=== PATIENT | female | born 1950 | race Caucasian/White ===

== ENCOUNTER → 2022-09-17 | Outpatient (CLI) | payer MEDICARE, SELFPAY ==
--- NOTE | 2022-09-17 14:44 | RAD_ITS ---
STUDY: X-RAY - RIGHT SHOULDER REASON FOR EXAM: Female, 72 years old. Inflammatory polyarthropathy. TECHNIQUE: 4 view(s) of the shoulder. COMPARISON: None. FINDINGS: Osteopenia. Mild arthrosis of the glenohumeral joint. Mild arthrosis of the AC joint. Normal acromion. Normal humeral head and visualized proximal humerus. Normal soft tissues. Normal visualized pulmonary apex. RAD/Shoulder min 2 Views IMPRESSION: Osteopenia with mild arthrosis of the glenohumeral and acromioclavicular joints. No other abnormality. Electronically Signed: Clarke Caputo, at 14:19 EDT ,
--- NOTE | 2022-09-17 14:44 | RAD_ITS ---
STUDY: X-RAY - LEFT SHOULDER REASON FOR EXAM: Female, 72 years old. Inflammatory polyarthropathy. TECHNIQUE: 4 view(s) of the shoulder. COMPARISON: None. FINDINGS: Osteopenia. Moderate arthrosis of the glenohumeral joint. Moderate arthrosis of the AC joint. Normal acromion. Normal humeral head and visualized proximal humerus. Normal soft tissues. Normal visualized pulmonary apex. RAD/Shoulder min 2 Views IMPRESSION: Osteopenia with moderate arthrosis of the glenohumeral and acromioclavicular joints. No other abnormality. Electronically Signed: Clarke Caputo, at 14:19 EDT ,
[2022-09-17 15:47] LABS: EXAGEN MAILED SPECIMEN
[2022-09-17 17:47] LABS: Absolute Lymphocyte Count 1.57 X10^3/uL (0.83-4.51); Absolute Neutrophil Count 6.1 X10^3/uL (2.0-7.7); Basophil# 0.08 X10^3/uL; Basophil% 0.9 % (0-1); Eosinophil# 0.15 X10^3/uL; Eosinophils% 1.8 % (0-5); Hematocrit 43.9 % (37-47); Hemoglobin 13.8 g/dL (12.0-15.0); Lymphocyte # 1.57 X10^3/ul (0.83-4.51); Lymphocyte % 18.3 % (19-41); Mean Corp Hgb Conc 31.4 g/dL (32-36); Mean Corpuscular Hgb 30.8 pg (27.0-32.0); Mean Platelet Vol. 10.4 fl (6.2-12.0); Monocyte# 0.66 X10^3/uL; Monocyte% 7.7 % (0-10); NRBC Flagged by Analyzer 0 % (0-5); Neutrophil # 6.07 X10^3/uL (2.7-7.7); Neutrophil % 70.9 % (47-70); Platelet Count 318 K/mm3 (150-450); RBC Distribution Width CV 12.9 % (11.6-14.6); RBC Distribution Width SD 46.5 fl (35.1-43.9); Red Blood Count 4.48 M/mm3 (4.2-5.4); White Blood Count 8.6 K/mm3 (4.4-11.0)
[2022-09-17 18:14] LABS: Color, Urine Yellow (Yellow); Glucose, Dipstick Normal (Normal); Ketone-Dipstick Negative (Negative); Leukocyte Esterase-Dipstick 500 /ul (Negative); Nitrite-Dipstick Negative (Negative); Occult Blood-Urine 10 /ul (Negative); Protein-Dipstick 30 mg/dl (Negative); Urine Bilirubin Dipstick Negative (Negative); Urine Clarity Sl. Cloudy (Clear); Urine Urobilinogen 1 mg/dl (Normal)
[2022-09-17 18:16] LABS: Erythrocyte Sedimentation Rate 35 mm/hr (0-30)
[2022-09-17 18:26] LABS: Protein, Urine (Random) 30.1 mg/dL (<11.9); Protein:Creat Ratio 130 mg/g CRE (0-200)
[2022-09-17 18:41] LABS: ALB/GLOB Ratio 0.8 RATIO (0.9-2.4); AST(SGOT) 38 U/L (15-37); Alanine Aminotransfer ALT/SGPT 51 U/L (13-56); Albumin, Serum 3.6 g/dL (3.2-5.0); Alkaline Phosphatase 94 U/L (45-117); Anion Gap 9 (5-15); BUN 18 mg/dL (7-18); BUN/Creat Ratio 13.5 RATIO (10-20); CRP 9.98 mg/L (0.0-3.0); Calcium,Total 9.8 mg/dL (8.5-10.1); Chloride 106 mmol/L (98-107); Creatinine, Serum 1.33 mg/dL (0.55-1.02); EST Glomerular Filtration Rate 42 mL/min (>60); Est Glom Filt Rate - Afr Amer 50 mL/min (>60); Globulin 4.7 g/dL (2.2-4.2); Glucose 128 mg/dL (74-106); Potassium 4.1 mmol/L (3.5-5.1); Protein, Total 8.3 g/dL (6.4-8.2); Sodium Level 139 mmol/L (136-145)
[2022-09-17 21:17] LABS: Hepatitis B Surface Antibody Non-Reactive; Hepatitis B Surface Antigen Non-Reactive (Nonreactive); Hepatitis C Antibody Non-Reactive (Nonreactive)
== END | disposition home or self-care (01) ==
LOC: MTLAB 14:42
PROVIDERS: Referring Provider Internal Medicine Rheumatology; Visit Provider Internal Medicine Rheumatology
DX: M06.4 Inflammatory polyarthropathy (principal); M79.7 Fibromyalgia; R76.8 Other specified abnormal immunological findings in serum
CPT/HCPCS: 36415; 73030; 80053; 81002; 82570; 84156; 85025; 85652; 86140; 86706; 86803; 87340

== ENCOUNTER 2022-10-14 11:10 | Outpatient (CLI) | payer MEDICARE, SELFPAY ==
[2022-10-14 15:23] LABS: International Normalized Ratio 1.2; Prothrombin Time (Protime)PT. 14.9 SECONDS (11.7-14.9)
[2022-10-14 15:25] LABS: Partial Thromboplast Time 45.9 Seconds (24.1-36.2)
[2022-10-18 02:07] LABS: Dilute Prothrombin Time (dPT) 50.9 sec (0.0-47.6); Dilute Russell Viper Venom 95.9 sec (0.0-47.0); Hexagonal Phase Phospholipid 10 sec (0-11); Hexagonal Phase Phospholipid 2 10 sec (0-11); Interpretation Comment: (.); PTT-LA 81.9 sec (0.0-43.5); PTT-LA Mix 70.1 sec (0.0-40.5); Thrombin Time 17.5 sec (0.0-23.0); dPT Confirm Ratio 1.32 Ratio (0.00-1.34)
== END 2022-10-14 23:59 | disposition home or self-care (01) ==
LOC: MTLAB 11:11
PROVIDERS: Referring Provider Internal Medicine Rheumatology; Visit Provider Internal Medicine Rheumatology
DX: M05.79 Rheumatoid arthritis with rheumatoid factor of multiple sites without organ or systems involvement (principal); M32.9 Systemic lupus erythematosus, unspecified; M79.7 Fibromyalgia; Z79.899 Other long term (current) drug therapy
CPT/HCPCS: 36415; 85598; 85610; 85670; 85730

== ENCOUNTER → 2023-04-06 | Outpatient (CLI) | payer MEDICARE, SELFPAY ==
[2023-04-06 07:15] LABS: Absolute Lymphocyte Count 1.11 X10^3/uL (0.83-4.51); Absolute Neutrophil Count 4.9 X10^3/uL (2.0-7.7); Basophil# 0.06 X10^3/uL; Basophil% 0.9 % (0-1); Eosinophil# 0.19 X10^3/uL; Eosinophils% 2.8 % (0-5); Hematocrit 40.3 % (37-47); Hemoglobin 13.1 g/dL (12.0-15.0); Lymphocyte # 1.11 X10^3/ul (0.83-4.51); Lymphocyte % 16.2 % (19-41); Mean Corp Hgb Conc 32.5 g/dL (32-36); Mean Corpuscular Hgb 31.5 pg (27.0-32.0); Mean Corpuscular Volume 96.9 fL (81-99); Mean Platelet Vol. 9.5 fl (6.2-12.0); Monocyte% 8.8 % (0-10); NRBC Flagged by Analyzer 0 % (0-5); Neutrophil # 4.85 X10^3/uL (2.7-7.7); Neutrophil % 70.9 % (47-70); Platelet Count 227 K/mm3 (150-450); RBC Distribution Width CV 12.7 % (11.6-14.6); RBC Distribution Width SD 45.3 fl (35.1-43.9); Red Blood Count 4.16 M/mm3 (4.2-5.4); White Blood Count 6.8 K/mm3 (4.4-11.0)
[2023-04-06 08:23] LABS: ALB/GLOB Ratio 0.8 RATIO (0.9-2.4); AST(SGOT) 18 U/L (15-37); Alanine Aminotransfer ALT/SGPT 21 U/L (13-56); Albumin, Serum 3.4 g/dL (3.2-5.0); Alkaline Phosphatase 111 U/L (45-117); Anion Gap 5 (5-15); BUN 18 mg/dL (7-18); BUN/Creat Ratio 13.6 RATIO (10-20); Calcium,Total 8.9 mg/dL (8.5-10.1); Chloride 105 mmol/L (98-107); Creatinine, Serum 1.32 mg/dL (0.55-1.02); EST Glomerular Filtration Rate 42 mL/min (>60); Est Glom Filt Rate - Afr Amer 51 mL/min (>60); Globulin 4.3 g/dL (2.2-4.2); Glucose 129 mg/dL (74-106); Potassium 3.4 mmol/L (3.5-5.1); Protein, Total 7.7 g/dL (6.4-8.2); Sodium Level 140 mmol/L (136-145)
[2023-04-06 08:40] LABS: Vitamin B12 587 pg/mL (211-911)
[2023-04-08 12:08] LABS: Vitamin D 1,25-Dihydroxy 56.8 pg/mL (24.8-81.5)
[2023-04-08 17:07] LABS: Free Kappa Light Chains 57.9 mg/L (3.3-19.4); Free Lambda Light Chains 24.3 mg/L (5.7-26.3); KEPPRA (LEVETIRACETAM) 53.2 ug/mL (10.0-40.0); Vitamin B1, Thiamine 125.8 nmol/L (66.5-200.0)
== END | disposition home or self-care (01) ==
PROVIDERS: Referring Provider Psychiatry & Neurology Neurology; Visit Provider Psychiatry & Neurology Neurology
DX: G40.909 Epilepsy, unspecified, not intractable, without status epilepticus (principal); G35 Multiple sclerosis; E03.9 Hypothyroidism, unspecified
CPT/HCPCS: 36415; 80053; 80177; 82140; 82607; 82652; 82746; 83883; 84425; 84439; 84443; 85025; 95819

== ENCOUNTER → 2023-04-13 | Outpatient (CLI) | payer MEDICARE, SELFPAY ==
--- NOTE | 2023-04-13 06:37 | MRI_ITS ---
STUDY: MRI THORACIC SPINE WITH AND WITHOUT CONTRAST REASON FOR EXAM: Female, 72 years old. Multiple sclerosis TECHNIQUE: IV 18ml clariscan was administered for the contrast portion of the examination. COMPARISON: MRI of the brain dated April 13, 2023 FINDINGS: Normal kyphosis of the thoracic spine. There is no substantial scoliosis. No demonstrated marrow edema or fractures or compression deformities. T1-2, T2-3, T3-4, T4-5, T5-6, T6-7, T7-8, T8-9, T9-10, T10-11, T11-12: Disc desiccation with mild disc space narrowing, endplate degenerative changes and spurring is present at all visualized levels. No significant posterior disc herniation or bulging or cord compression demonstrated. Normal central canal and intervertebral neural foramina at the corresponding levels. Normal visualized thoracic cord. No demyelinating plaques or syrinx formation is seen within the spinal cord. Normal conus medullaris that terminates at the T12-L1 level.. The soft tissue structures are unremarkable. There is no enhancing abnormality. MRI/Spine Thoracic W/WO Contrast IMPRESSION: 1. Multilevel degenerative changes of the thoracic spine. 2. No visualized demyelinating plaques in the thoracic portion of the spinal cord. Electronically Signed: Marcellus Patel MD at 15:16 EST ,
--- NOTE | 2023-04-13 06:37 | MRI_ITS ---
STUDY: MRI CERVICAL SPINE WITH AND WITHOUT CONTRAST REASON FOR EXAM: Female, 72 years old. Neck pain and multiple sclerosis low back pain,restless leg,balance issues, double vision,tingling feet/arms TECHNIQUE: Standardized fat and water weighted pulse sequences were obtained in the sagittal and axial following administration of IV 18ml clariscan. COMPARISON: MRI of the thoracic and lumbar spine and MRI of the brain dated April 13, 2023 FINDINGS: Diffuse patchy faint right demyelinating plaques are present in the central aspect of the cervical cord starting from C2-C3 down to C7. Mild enhancement is seen in several of the demyelinating plaques on the postcontrast study. No syrinx formation is present. Mild focal cord atrophy is demonstrated at C7-T1. No focal or suspicious bony lesions are present. Normal foramen magnum and brainstem-cervical cord junction. Normal craniovertebral junction. Normal anterior atlantoaxial articulation. Normal odontoid process. Normal cervical lordosis. Normal vertebral bodies and posterior osseous elements. C2-3: Normal endplates. Disc desiccation. Normal disc height and morphology. Normal central canal and intervertebral neural foramina. C3-4: Moderate disc space narrowing with posterior annular bulging and hypertrophied ligamenta flava resulting in mass effect on the anterior posterior aspect of the cord respectively and contributing to mild central canal stenosis. Severe bilateral foraminal stenosis with nerve root compression secondary to uncovertebral facet joint hypertrophy. C4-5: Moderate disc space narrowing and Modic endplate degenerative signal. Diffuse disc spur complex with mild compression anterior aspect of the cord and dfer-il-dwftgyol central canal stenosis. Moderate to severe right foraminal stenosis with nerve root compression due to uncovertebral hypertrophy. Mild left foraminal stenosis. C5-6: Moderate to significant disc space narrowing with a diffuse disc spur complex causing mild compression anterior aspect of the cord and [id number] central canal stenosis. Severe bilateral foraminal stenosis with nerve root compression due to uncovertebral hypertrophy. C6-7: Moderate disc space narrowing with a broad-based disc herniation causing compression anterior aspect of the cord and ieaf-yg-apmeloou central canal stenosis. Ligamenta flava hypertrophy causes mild compression of the posterior aspect of the cord. Mild bilateral foraminal stenosis secondary to facet joint hypertrophy. C7-T1: Mild endplate spurring. Diffuse disc desiccation. Preserved disc space height without bulging or herniation. Normal central canal and intervertebral neural foramina. Normal visualized soft tissue structures. MRI/Spine Cervical W/WO Contrast IMPRESSION: 1. Diffuse patchy faint right demyelinating plaques are present in the central aspect of the cervical cord starting from C2-C3 down to C7. Mild enhancement is seen in several of the demyelinating plaques on the postcontrast study. No syrinx formation is present. Mild focal cord atrophy is demonstrated at C7-T1. No focal or suspicious bony lesions are present. 2. Multilevel degenerative changes, as described above. Electronically Signed: Marcellus Patel MD at 15:27 EST Reading Location ID and State: [facility] / [place] , Service support ,
--- NOTE | 2023-04-13 06:37 | MRI_ITS ---
STUDY: MRI BRAIN WITH AND WITHOUT CONTRAST REASON FOR EXAM: Female, 72 years old. Multiple sclerosis, epilepsy TECHNIQUE: Standardized multiplanar fat and water weighted pulse sequences were obtained. IV 18ml clariscan was administered for the contrast portion of the examination. COMPARISON: None. FINDINGS: Approximately 12 small demyelinating plaques oriented in the rodriguez radiata, corpus callosal body, and periventricular white matter. The lesions do not demonstrate active diffusion weighted signal or enhancement on the postcontrast study. There are no suspicious or malignant appearing lesions. Mild cystic vacuole formation is present in the demyelinating plaque in the mid aspect of the right rodriguez radiata as seen on image 17/25 series 7. There is also mild to moderate parenchymal edema in the anterior medial aspect of the left temporal lobe within the parahippocampal gyrus, seen on image 11/25 series 7 most likely also due to multiple sclerosis or sequela from prior viral infection or less likely trauma. There is mild cerebral atrophy with widening of the extra-axial spaces and ventricular dilatation. There are a limited number of small white matter hyperintensities, distributed throughout the deep white matter tracts of the cerebral hemispheres, consistent with mild chronic white matter ischemic changes. There is no evidence for recent intracranial ischemia or other cause of cytotoxic edema on diffusion weighted imaging (DWI). Normal T2* images of the brain without demonstrated susceptibility artifact. There is no demonstrated hemosiderin stain. Normal bilateral basal ganglia. Normal thalami. There is no extra-axial fluid accumulation. Normal flow voids within the major intracranial circulation suggesting patency by spin echo criteria. Normal venous enhancement. There is no enhancing intra-axial or extra-axial abnormality. Normal sella turcica, pituitary gland, infundibular stalk, optic chiasm and hypothalamus. Normal tectal plate and pineal gland. Normal midbrain, oscar and medulla. Normal cerebellum. Normal basal cisterns. Normal bilateral temporal bones. Normal bilateral internal auditory canals. No demonstrated orbital abnormality, within the constraints of a routine brain study. Normal visualized paranasal sinuses. Normal calvarium and skull base. Normal visualized soft tissue structures. Normal visualized upper cervical spine. Mild to moderate bilateral mastoid sinus opacification/otomastoiditis, left greater than right. MRI/Brain W/WO Contrast IMPRESSION: 1. Approximately 12 small demyelinating plaques oriented in the rodriguez radiata, corpus callosal body, and periventricular white matter. The lesions do not demonstrate active diffusion weighted signal or enhancement on the postcontrast study. There are no suspicious or malignant appearing lesions. 2. Mild cystic vacuole formation is present in the demyelinating plaque in the mid aspect of the right rodriguez radiata as seen on image 17/25 series 7. 3. There is also mild to moderate parenchymal edema in the anterior medial aspect of the left temporal lobe within the parahippocampal gyrus, seen on image 11/25 series 7 most likely also due to multiple sclerosis or sequela from prior viral infection or less likely trauma. Electronically Signed: Marcellus Patel MD at 15:04 EST ,
--- NOTE | 2023-04-13 06:37 | MRI_ITS ---
STUDY: MRI LUMBAR SPINE WITH AND WITHOUT CONTRAST REASON FOR EXAM: Female, 72 years old. Chronic low back pain, multiple sclerosis TECHNIQUE: Standardized fat and water weighted pulse sequences were obtained in the sagittal and axial planes. IV 18ml clariscan was administered for the contrast portion of the examination. COMPARISON: MRI of the brain, cervical spine, and thoracic spine dated April 13, 2023 FINDINGS: Degenerative changes of the thoracic spine are under the dedicated MRI of the thoracic spine report. Normal lumbar section of the spinal cord without demonstrated demyelinating lesions, bright signal, syrinx formation, or cord atrophy. No abnormal enhancement of the distal aspect of the cord is demonstrated. No marrow edema or fracture or suspicious lesions are present. No demonstrated compression deformities. No abnormal enhancement of the bony structures of the lumbar spine. Normal lumbar lordosis. There is no substantial scoliosis. Normal conus medullaris that terminates at the T12-L1 level. L1-2: Moderate disc space narrowing with mild annular bulging morphology. Normal bilateral facet joints. Normal central canal and bilateral lateral recesses. Normal bilateral intervertebral neural foramina. L2-3: Normal endplates. Diffuse disc desiccation with mild posterior disc space narrowing and slight annular bulging. Normal bilateral facet joints. Normal central canal and bilateral lateral recesses. Normal bilateral intervertebral neural foramina. L3-4: Normal endplates. Diffuse disc desiccation. Normal disc height and morphology. Normal bilateral facet joints. Normal central canal and bilateral lateral recesses. Normal bilateral intervertebral neural foramina. L4-5: Normal endplates. Diffuse disc desiccation. Normal disc height and morphology. Normal bilateral facet joints. Normal central canal and bilateral lateral recesses. Normal bilateral intervertebral neural foramina. L5-S1: Moderate disc space narrowing with broad-based disc herniation. Superimposed midline shallow disc protrusion. Mild to moderate Modic endplate degenerative signal and changes. Mild anterolisthesis of L5 on S1 of 2 to 3 mm. Mild facet joint hypertrophy with mild to moderate bilateral foraminal stenosis and slight nerve root impingement. Normal central canal and bilateral lateral recesses. Normal visualized sacral ala. There is mild paraspinal muscular atrophy. MRI/Spine Lumbar W/WO Contrast IMPRESSION: 1. Multilevel degenerative changes, as described above. 2. Normal lumbar section of the spinal cord without demonstrated demyelinating lesions, bright signal, syrinx formation, or cord atrophy. No abnormal enhancement of the distal aspect of the cord is demonstrated. Electronically Signed: Marcellus Patel MD at 15:46 EST ,
== END | disposition home or self-care (01) ==
PROVIDERS: PCP Internal Medicine; Referring Provider Psychiatry & Neurology Neurology; Visit Provider Psychiatry & Neurology Neurology
DX: G35 Multiple sclerosis (principal); G40.909 Epilepsy, unspecified, not intractable, without status epilepticus; M54.2 Cervicalgia
CPT/HCPCS: 70553; 72156; 72157; 72158; A9575

== ENCOUNTER → 2023-11-19 | Outpatient (CLI) | payer MEDICARE, SELFPAY ==
[2023-11-19 15:22] LABS: Absolute Lymphocyte Count 1.32 X10^3/uL (0.83-4.51); Basophil% 1.3 % (0-1); Eosinophil# 0.11 X10^3/uL; Eosinophils% 1.4 % (0-5); Hematocrit 40.1 % (37-47); Hemoglobin 12.7 g/dL (12.0-15.0); Lymphocyte # 1.32 X10^3/ul (0.83-4.51); Lymphocyte % 17.3 % (19-41); Mean Corp Hgb Conc 31.7 g/dL (32-36); Mean Corpuscular Hgb 31.1 pg (27.0-32.0); Mean Corpuscular Volume 98.3 fL (81-99); Mean Platelet Vol. 9.6 fl (6.2-12.0); Monocyte# 0.93 X10^3/uL; Monocyte% 12.2 % (0-10); NRBC Flagged by Analyzer 0 % (0-5); Neutrophil # 5.01 X10^3/uL (2.7-7.7); Platelet Count 279 K/mm3 (150-450); RBC Distribution Width CV 13.5 % (11.6-14.6); RBC Distribution Width SD 48.9 fl (35.1-43.9); Red Blood Count 4.08 M/mm3 (4.2-5.4); White Blood Count 7.6 K/mm3 (4.4-11.0)
[2023-11-19 15:39] LABS: ALB/GLOB Ratio 0.9 RATIO (0.9-2.4); AST(SGOT) 20 U/L (15-37); Alanine Aminotransfer ALT/SGPT 19 U/L (13-56); Albumin, Serum 3.5 g/dL (3.2-5.0); Alkaline Phosphatase 124 U/L (45-117); Anion Gap 5 (5-15); BUN 14 mg/dL (7-18); BUN/Creat Ratio 12.5 RATIO (10-20); Calcium,Total 8.3 mg/dL (8.5-10.1); Chloride 110 mmol/L (98-107); Creatinine, Serum 1.12 mg/dL (0.55-1.02); EST Glomerular Filtration Rate 51 mL/min (>60); Est Glom Filt Rate - Afr Amer 61 mL/min (>60); Globulin 3.9 g/dL (2.2-4.2); Glucose 100 mg/dL (74-106); Potassium 4.4 mmol/L (3.5-5.1); Protein, Total 7.4 g/dL (6.4-8.2); Sodium Level 139 mmol/L (136-145)
[2023-11-19 16:53] LABS: Bilirubin, Direct 0.11 mg/dL (0.00-0.30)
[2023-11-19 19:31] LABS: Hemoglobin A1c 5.4 % (3.8-5.6)
[2023-11-24 13:08] LABS: Albumin 3.6 g/dL (2.9-4.4); Alpha-1-Globulins 0.2 g/dL (0.0-0.4); Gamma Globulin 0.8 g/dL (0.4-1.8); Immunoglobulin A 284 mg/dL (64-422); Immunoglobulin G 931 mg/dL (586-1602); Immunoglobulin M 91 mg/dL (26-217); KEPPRA (LEVETIRACETAM) 47.5 ug/mL (10.0-40.0); PROEL- TOTAL PROTEIN 6.8 g/dL (6.0-8.5)
== END | disposition home or self-care (01) ==
LOC: MTLAB 13:33
PROVIDERS: Psychiatry & Neurology Neurology; PCP Internal Medicine; Referring Provider Internal Medicine Rheumatology; Visit Provider Internal Medicine Rheumatology
DX: M32.9 Systemic lupus erythematosus, unspecified (principal); G40.909 Epilepsy, unspecified, not intractable, without status epilepticus; Z79.899 Other long term (current) drug therapy; M79.7 Fibromyalgia; G62.9 Polyneuropathy, unspecified; R73.9 Hyperglycemia, unspecified
CPT/HCPCS: 36415; 80053; 80177; 82140; 82248; 82784; 83036; 84165; 85025; 86334; 86335

== ENCOUNTER → 2024-02-12 | Outpatient (CLI) | payer MEDICARE, SELFPAY ==
[2024-02-12 15:21] LABS: Absolute Lymphocyte Count 0.91 X10^3/uL (0.83-4.51); Absolute Neutrophil Count 4.6 X10^3/uL (2.0-7.7); Basophil# 0.07 X10^3/uL; Basophil% 1.1 % (0-1); Eosinophil# 0.13 X10^3/uL; Eosinophils% 2.1 % (0-5); Hematocrit 40.2 % (37-47); Hemoglobin 12.8 g/dL (12.0-15.0); Lymphocyte # 0.91 X10^3/ul (0.83-4.51); Lymphocyte % 14.5 % (19-41); Mean Corp Hgb Conc 31.8 g/dL (32-36); Mean Corpuscular Hgb 30.6 pg (27.0-32.0); Mean Corpuscular Volume 96.2 fL (81-99); Mean Platelet Vol. 9.7 fl (6.2-12.0); Monocyte# 0.57 X10^3/uL; Monocyte% 9.1 % (0-10); NRBC Flagged by Analyzer 0 % (0-5); Neutrophil # 4.55 X10^3/uL (2.7-7.7); Neutrophil % 72.2 % (47-70); Platelet Count 214 K/mm3 (150-450); RBC Distribution Width CV 12.5 % (11.6-14.6); RBC Distribution Width SD 43.9 fl (35.1-43.9); Red Blood Count 4.18 M/mm3 (4.2-5.4); White Blood Count 6.3 K/mm3 (4.4-11.0)
[2024-02-12 15:44] LABS: ALB/GLOB Ratio 0.9 RATIO (0.9-2.4); AST(SGOT) 15 U/L (15-37); Alanine Aminotransfer ALT/SGPT 21 U/L (13-56); Albumin, Serum 3.4 g/dL (3.2-5.0); Alkaline Phosphatase 80 U/L (45-117); Anion Gap 5 (5-15); BUN 20 mg/dL (7-18); BUN/Creat Ratio 17.9 RATIO (10-20); Calcium,Total 8.9 mg/dL (8.5-10.1); Chloride 108 mmol/L (98-107); Creatinine, Serum 1.12 mg/dL (0.55-1.02); EST Glomerular Filtration Rate 51 mL/min (>60); Est Glom Filt Rate - Afr Amer 61 mL/min (>60); Globulin 3.7 g/dL (2.2-4.2); Glucose 113 mg/dL (74-106); Potassium 4.2 mmol/L (3.5-5.1); Protein, Total 7.1 g/dL (6.4-8.2); Sodium Level 138 mmol/L (136-145)
== END | disposition home or self-care (01) ==
LOC: MTLAB 11:43
PROVIDERS: PCP Internal Medicine; Referring Provider Internal Medicine Rheumatology; Visit Provider Internal Medicine Rheumatology
DX: M05.79 Rheumatoid arthritis with rheumatoid factor of multiple sites without organ or systems involvement (principal); M32.9 Systemic lupus erythematosus, unspecified; M79.7 Fibromyalgia; Z79.899 Other long term (current) drug therapy
CPT/HCPCS: 36415; 80053; 85025

== ENCOUNTER → 2024-05-06 | Outpatient (CLI) | payer MEDICARE, SELFPAY ==
[2024-05-06 15:05] LABS: Absolute Lymphocyte Count 1.31 X10^3/uL (0.83-4.51); Absolute Neutrophil Count 7.1 X10^3/uL (2.0-7.7); Basophil# 0.08 X10^3/uL; Basophil% 0.8 % (0-1); Eosinophil# 0.16 X10^3/uL; Eosinophils% 1.7 % (0-5); Hematocrit 41.8 % (37-47); Hemoglobin 13.1 g/dL (12.0-15.0); Lymphocyte # 1.31 X10^3/ul (0.83-4.51); Lymphocyte % 13.8 % (19-41); Mean Corp Hgb Conc 31.3 g/dL (32-36); Mean Corpuscular Hgb 30.8 pg (27.0-32.0); Mean Corpuscular Volume 98.1 fL (81-99); Mean Platelet Vol. 9.9 fl (6.2-12.0); Monocyte# 0.75 X10^3/uL; Monocyte% 7.9 % (0-10); NRBC Flagged by Analyzer 0 % (0-5); Neutrophil # 7.11 X10^3/uL (2.7-7.7); Neutrophil % 75.2 % (47-70); Platelet Count 243 K/mm3 (150-450); RBC Distribution Width CV 12.9 % (11.6-14.6); RBC Distribution Width SD 46.4 fl (35.1-43.9); Red Blood Count 4.26 M/mm3 (4.2-5.4); White Blood Count 9.5 K/mm3 (4.4-11.0)
[2024-05-06 15:46] LABS: ALB/GLOB Ratio 0.9 RATIO (0.9-2.4); AST(SGOT) 16 U/L (15-37); Alanine Aminotransfer ALT/SGPT 21 U/L (13-56); Albumin, Serum 3.5 g/dL (3.2-5.0); Alkaline Phosphatase 89 U/L (45-117); Anion Gap 2 (5-15); BUN 21 mg/dL (7-18); BUN/Creat Ratio 18.4 RATIO (10-20); Calcium,Total 8.7 mg/dL (8.5-10.1); Chloride 106 mmol/L (98-107); Creatinine, Serum 1.14 mg/dL (0.55-1.02); EST Glomerular Filtration Rate 50 mL/min (>60); Est Glom Filt Rate - Afr Amer 60 mL/min (>60); Globulin 3.8 g/dL (2.2-4.2); Glucose 102 mg/dL (74-106); Potassium 4.5 mmol/L (3.5-5.1); Protein, Total 7.3 g/dL (6.4-8.2); Sodium Level 137 mmol/L (136-145)
== END | disposition home or self-care (01) ==
LOC: MTLAB 13:53
PROVIDERS: PCP Internal Medicine; Referring Provider Internal Medicine Rheumatology; Visit Provider Internal Medicine Rheumatology
DX: M05.79 Rheumatoid arthritis with rheumatoid factor of multiple sites without organ or systems involvement (principal); G35 Multiple sclerosis; M32.9 Systemic lupus erythematosus, unspecified; M79.7 Fibromyalgia; Z86.39 Personal history of other endocrine, nutritional and metabolic disease
CPT/HCPCS: 36415; 80053; 85025

== ENCOUNTER → 2024-08-02 | Outpatient (CLI) | payer MEDICARE, SELFPAY ==
[2024-08-02 16:10] LABS: Absolute Lymphocyte Count 1.26 X10^3/uL (0.83-4.51); Basophil# 0.09 X10^3/uL; Basophil% 1.2 % (0-1); Eosinophil# 0.18 X10^3/uL; Eosinophils% 2.4 % (0-5); Hematocrit 42.4 % (37-47); Hemoglobin 13.5 g/dL (12.0-15.0); Lymphocyte # 1.26 X10^3/ul (0.83-4.51); Lymphocyte % 16.8 % (19-41); Mean Corp Hgb Conc 31.8 g/dL (32-36); Mean Corpuscular Hgb 31.8 pg (27.0-32.0); Mean Corpuscular Volume 99.8 fL (81-99); Mean Platelet Vol. 10.2 fl (6.2-12.0); Monocyte# 0.87 X10^3/uL; Monocyte% 11.6 % (0-10); NRBC Flagged by Analyzer 0 % (0-5); Neutrophil # 5.04 X10^3/uL (2.7-7.7); Neutrophil % 67.5 % (47-70); Platelet Count 287 K/mm3 (150-450); RBC Distribution Width SD 47.7 fl (35.1-43.9); Red Blood Count 4.25 M/mm3 (4.2-5.4); White Blood Count 7.5 K/mm3 (4.4-11.0)
[2024-08-02 17:28] LABS: ALB/GLOB Ratio 1.3 RATIO (0.9-2.4); AST(SGOT) 32 U/L (<=31); Alanine Aminotransfer ALT/SGPT 24 U/L (<=34); Albumin, Serum 4.2 g/dL (3.4-4.8); Alkaline Phosphatase 57 U/L (35-104); Anion Gap 14 (5-15); BUN 17 mg/dL (4-19); Calcium,Total 9.5 mg/dL (7.6-11.0); Carbon Dioxide 21.7 mmol/L (21.0-32.0); Chloride 103 mmol/L (98-108); Creatinine, Serum 1.24 mg/dL (0.70-1.20); EST Glomerular Filtration Rate 46 (>60); Globulin 3.2 g/dL (2.2-4.2); Glucose 105 mg/dL (70-99); Potassium 4.3 mmol/L (3.3-5.1); Protein, Total 7.4 g/dL (5.9-8.4); Sodium Level 139 mmol/L (133-145); Total Bilirubin 0.41 mg/dL (0.00-1.30)
== END | disposition home or self-care (01) ==
LOC: MTLAB 10:50
PROVIDERS: PCP Internal Medicine; Referring Provider Internal Medicine Rheumatology; Visit Provider Internal Medicine Rheumatology
DX: M05.79 Rheumatoid arthritis with rheumatoid factor of multiple sites without organ or systems involvement (principal); M32.9 Systemic lupus erythematosus, unspecified; M25.511 Pain in right shoulder; M79.7 Fibromyalgia
CPT/HCPCS: 36415; 80053; 85025

== ENCOUNTER → 2024-09-22 | Outpatient (CLI) | payer MEDICARE, SELFPAY ==
--- NOTE | 2024-09-22 09:45 | CDU_ITS ---
Reason For Study Reason For Study: Carotid Bruit Rt. Velocities/BP Lt. Velocities/BP Prox CCA 70.2/8.8 cm/sec. Prox CCA 87.5/17.1 cm/sec. Mid CCA 58.9/10.7 cm/sec. Mid CCA 57.8/10.6 cm/sec. Dist CCA 63.6/16.3 cm/sec. Dist CCA 51.2/11.7 cm/sec. Prox ICA 65.8/17.5 cm/sec. Prox ICA 58.1/10.1 cm/sec. Mid ICA 90.7/19.5 cm/sec. Mid ICA 73.4/19.6 cm/sec. Dist ICA 82.1/13.9 cm/sec. Dist ICA 73.3/23.2 cm/sec. Rt. ICA/CCA = 1.5. Lt. ICA/CCA = 1.3. Prox ECA 153.4/13.0 cm/sec. Prox ECA 68.8/9.5 cm/sec. Rt. Vert. 50.1/12.7 cm/sec. Lt. Vert. 31.7/10.0 cm/sec. Right Extracranial There is homogeneous, smooth atherosclerotic plaque noted in the right common carotid artery. There is heterogeneous, irregular atherosclerotic plaque noted in the right internal carotid artery. There is homogeneous, smooth atherosclerotic plaque noted in the right external carotid artery. Antegrade flow is noted in the right vertebral artery. Left Extracranial There is homogeneous, smooth atherosclerotic plaque noted in the left common carotid artery. There is heterogeneous, irregular atherosclerotic plaque noted in the left internal carotid artery. There is intimal thickening but no significant atherosclerotic plaque noted in the left external carotid artery. Antegrade flow is noted in the left vertebral artery. Procedure Carotid Duplex [id number]. This is a Carotid Duplex examination using B-mode, color flow and specral Doppler. Exam performed in department. VL/Carotid Duplex Ultrasound Interpretation Summary Mild (<50%) stenosis right extracranial internal carotid. Mild (<50%) stenosis left extracranial internal carotid. Patent and antegrade vertebrals bilaterally. Ordering Physician: Gordon Delgado Performed By: Nellie Barnes RVT
== END | disposition home or self-care (01) ==
PROVIDERS: Referring Provider Psychiatry & Neurology Neurology; Visit Provider Psychiatry & Neurology Neurology
DX: R09.89 Other specified symptoms and signs involving the circulatory and respiratory systems (principal)
CPT/HCPCS: 93880

== ENCOUNTER → 2024-10-27 | Outpatient (CLI) | payer MEDICARE, SELFPAY ==
[2024-10-27 15:13] LABS: Absolute Lymphocyte Count 1.05 X10^3/uL (0.83-4.51); Absolute Neutrophil Count 6.4 X10^3/uL (2.0-7.7); Basophil# 0.05 X10^3/uL; Basophil% 0.6 % (0-1); Eosinophil# 0.02 X10^3/uL; Eosinophils% 0.2 % (0-5); Hematocrit 41.7 % (37-47); Hemoglobin 13.7 g/dL (12.0-15.0); Lymphocyte # 1.05 X10^3/ul (0.83-4.51); Lymphocyte % 12.7 % (19-41); Mean Corp Hgb Conc 32.9 g/dL (32-36); Mean Corpuscular Hgb 32.2 pg (27.0-32.0); Mean Corpuscular Volume 97.9 fL (81-99); Mean Platelet Vol. 10.2 fl (6.2-12.0); Monocyte# 0.69 X10^3/uL; Monocyte% 8.3 % (0-10); NRBC Flagged by Analyzer 0 % (0-5); Neutrophil # 6.43 X10^3/uL (2.7-7.7); Neutrophil % 77.6 % (47-70); Platelet Count 259 K/mm3 (150-450); RBC Distribution Width CV 12.3 % (11.6-14.6); RBC Distribution Width SD 44.2 fl (35.1-43.9); Red Blood Count 4.26 M/mm3 (4.2-5.4); White Blood Count 8.3 K/mm3 (4.4-11.0)
[2024-10-27 16:03] LABS: ALB/GLOB Ratio 1.2 RATIO (0.9-2.4); AST(SGOT) 26 U/L (<=31); Alanine Aminotransfer ALT/SGPT 18 U/L (<=34); Alkaline Phosphatase 72 U/L (35-104); Anion Gap 12 (5-15); BUN 22 mg/dL (4-19); BUN/Creat Ratio 19.2 RATIO (10-20); Calcium,Total 9.7 mg/dL (7.6-11.0); Carbon Dioxide 22.2 mmol/L (21.0-32.0); Chloride 104 mmol/L (98-108); Creatinine, Serum 1.12 mg/dL (0.70-1.20); EST Glomerular Filtration Rate 52 (>60); Globulin 3.3 g/dL (2.2-4.2); Glucose 98 mg/dL (70-99); Potassium 5.2 mmol/L (3.3-5.1); Protein, Total 7.3 g/dL (5.9-8.4); Sodium Level 139 mmol/L (133-145); Total Bilirubin 0.26 mg/dL (0.00-1.30)
== END | disposition home or self-care (01) ==
LOC: MTLAB 12:52
PROVIDERS: Referring Provider Internal Medicine Rheumatology; Visit Provider Internal Medicine Rheumatology
DX: M05.79 Rheumatoid arthritis with rheumatoid factor of multiple sites without organ or systems involvement (principal); M32.9 Systemic lupus erythematosus, unspecified; M25.511 Pain in right shoulder; M79.7 Fibromyalgia
CPT/HCPCS: 36415; 80053; 85025

== ENCOUNTER 2024-11-29 12:37 | Outpatient (CLI) | payer MEDICARE, SELFPAY ==
[2024-11-29 12:46] VITALS: BP 142/50; PULSE 76; RESP 16; TEMP 36.3; O2SAT 98
[2024-11-29] MEDS: 0.9% NaCl Peripheral Flush Adult IV (12:52)
[2024-11-29] MEDS: MethylPREDNISolone Sod Succ 1,000 MG in 0.9% Normal Saline (100mL Bag) 100 ML 100 MG IV (13:02)
[2024-11-29 14:37] VITALS: BP 140/46; PULSE 79
== END 2024-11-29 23:59 | disposition home or self-care (01) ==
LOC: MEDOUTP 12:38
PROVIDERS: Referring Provider Psychiatry & Neurology Neurology; Visit Provider Psychiatry & Neurology Neurology
DX: G35 Multiple sclerosis (principal); G40.909 Epilepsy, unspecified, not intractable, without status epilepticus
CPT/HCPCS: 96365; A4216; J2919

== ENCOUNTER 2024-11-30 12:51 | Outpatient (CLI) | payer MEDICARE, SELFPAY ==
[2024-11-30 13:43] VITALS: BP 114/69; PULSE 76; RESP 16; TEMP 36.1; O2SAT 99
[2024-11-30] MEDS: MethylPREDNISolone Sod Succ 1,000 MG in 0.9% Normal Saline (100mL Bag) 100 ML 100 MG IV (14:02)
[2024-11-30 15:38] VITALS: BP 175/74; PULSE 79
[2024-11-30 15:51] VITALS: BP 160/82; PULSE 80; RESP 16
[2024-11-30 16:12] VITALS: BP 153/65; PULSE 74; RESP 16
== END 2024-11-30 23:59 | disposition home or self-care (01) ==
LOC: MEDOUTP 12:51
PROVIDERS: Referring Provider Psychiatry & Neurology Neurology; Visit Provider Psychiatry & Neurology Neurology
DX: G35 Multiple sclerosis (principal); G40.909 Epilepsy, unspecified, not intractable, without status epilepticus
CPT/HCPCS: 96365; 96366; A4216; J2919

== ENCOUNTER → 2025-03-17 | Outpatient (CLI) | payer MEDICARE, SELFPAY ==
[2025-03-17 12:25] LABS: Hematocrit 41.5 % (37-47); Hemoglobin 13.4 g/dL (12.0-15.0); Immature Granulocytes Count 0.020 X10^3/uL (0.0-0.0); Mean Corp Hgb Conc 32.3 g/dL (32-36); Mean Corpuscular Volume 96.7 fL (81-99); Mean Platelet Vol. 11.5 fl (6.2-12.0); NRBC Flagged by Analyzer 0 % (0-5); POSITIVE COUNT YES; RBC Distribution Width CV 12.4 % (11.6-14.6); RBC Distribution Width SD 44.0 fl (35.1-43.9); Red Blood Count 4.29 M/mm3 (4.2-5.4); White Blood Count 7.3 K/mm3 (4.4-11.0)
[2025-03-17 12:52] LABS: Differential Comment SCANNED; Differential Indicated SCAN CRITERIA MET
[2025-03-17 13:13] LABS: AST(SGOT) 28 U/L (<=31); Alanine Aminotransfer ALT/SGPT 22 U/L (<=34); Albumin, Serum 4.1 g/dL (3.4-4.8); Alkaline Phosphatase 55 U/L (35-104); Anion Gap 12 (5-15); BUN 19 mg/dL (4-19); BUN/Creat Ratio 16.3 RATIO (10-20); Calcium,Total 10.1 mg/dL (7.6-11.0); Carbon Dioxide 23.3 mmol/L (21.0-32.0); Chloride 105 mmol/L (98-108); Globulin 3.1 g/dL (2.2-4.2); Glucose 98 mg/dL (70-99); Potassium 4.5 mmol/L (3.3-5.1)
== END | disposition home or self-care (01) ==
LOC: MTLAB 09:52
PROVIDERS: PCP Radiologic Technologist Bone Densitometry; Referring Provider Internal Medicine Rheumatology; Visit Provider Internal Medicine Rheumatology
DX: M05.79 Rheumatoid arthritis with rheumatoid factor of multiple sites without organ or systems involvement (principal); M32.9 Systemic lupus erythematosus, unspecified; M25.511 Pain in right shoulder; M79.7 Fibromyalgia
CPT/HCPCS: 36415; 80053; 85025

== ENCOUNTER → 2025-03-30 | Outpatient (CLI) | payer MEDICARE, SELFPAY ==
--- NOTE | 2025-03-30 06:40 | MRI_ITS ---
PROCEDURE: SPINE THORACIC W/WO CONTRAST 03/30/2025 REASON FOR EXAM: MULTIPLE SCLEROSIS TECHNIQUE: Thoracic spine MRI without and with intravenous gadolinium-based contrast. Multiplanar and multisequence images were obtained. CONTRAST: Clariscan VOLUME: 20mL COMPARISON: MR thoracic spine April 13, 2023. FINDINGS: Vertebrae: Preserved in height and signal. Alignment: Normal alignment. Spinal Cord: Unremarkable. Disc spaces: Minimal degenerative changes without significant canal stenosis. Paraspinal Tissues: Unremarkable. Postcontrast images: No abnormal enhancement. MRI/Spine Thoracic W/WO Contrast IMPRESSION: No demyelinating lesions in the thoracic spine. Reading Location: [id number]
--- NOTE | 2025-03-30 06:40 | MRI_ITS ---
PROCEDURE: SPINE LUMBAR W/WO CONTRAST 03/30/2025 REASON FOR EXAM: LOW BACK PAIN; MULTIPLE SCLEROSIS TECHNIQUE: Procedure Code: [id number] Modality: MR Procedure: SPINE LUMBAR W/WO CONTRAST Multiplanar and multisequence images were obtained without and with intravenous gadolinium-based contrast administration. CONTRAST: Clariscan VOLUME: 20 mL COMPARISON: MRI lumbar spine 04/13/2023. FINDINGS: Vertebrae: Preserved in height and signal. Alignment: Normal aligned. Conus Medullaris: Unremarkable L1-2: Disc desiccation. Mild inferior bilateral foramina stenosis. Mild canal stenosis. L2-3: Disc bulge. Facet joint arthropathy. Ligamentum flavum hypertrophy. Mild inferior bilateral foramina stenosis. Moderate canal stenosis. L3-4: Disc bulge. Facet joint arthropathy. Ligamentum flavum hypertrophy. Mild bilateral foramina stenosis. Mild canal stenosis. L4-5: Disc bulge. Facet joint arthropathy. Mild bilateral foramina stenosis. No significant canal stenosis. L5-S1: Disc bulge. Disc desiccation. A 5 mm superimposed disc protrusion. Facet joint arthropathy. Moderate bilateral foramina stenosis. Sacrum: Unremarkable. Postcontrast images: Unremarkable. MRI/Spine Lumbar W/WO Contrast IMPRESSION: No evidence of demyelinating process or acute findings in the lumbar spine. Similar multilevel degenerate changes as detailed. Reading Location: [facility]
--- NOTE | 2025-03-30 06:40 | MRI_ITS ---
PROCEDURE: SPINE CERVICAL W/WO CONTRAST 03/30/2025 REASON FOR EXAM: NECK PAIN; MULTIPLE SCLEROSIS TECHNIQUE: Procedure Code: [id number] Modality: MR Procedure: SPINE CERVICAL W/WO CONTRAST Multiplanar and multisequence images were obtained with intravenous gadolinium- based contrast administration. CONTRAST: Clariscan VOLUME: 20 mL COMPARISON: Cervical spine MRI April 13, 2023. FINDINGS: Vertebrae: Preserved in height. Mixed Modic changes type 1 and type 2 and C4-C5. Alignment: Normal alignment. Spinal Cord: Diffuse patchy faint right demyelinating plaques are present in the central aspect of the cervical cord starting from C2-C3 down to C7. No spinal cord atrophy. C2-3: Suggests osteopenia. No foraminal or canal stenosis. C3-4: Disc osteophyte complex. Uncovertebral hypertrophy. Moderate canal stenosis. Severe left and moderate right foramina stenosis. C4-5: Disc desiccation. Disc bulge. Uncovertebral hypertrophy. Severe canal stenosis. Moderate canal stenosis. C5-6: Disc desiccation. Disc osteophyte complex uncovertebral hypertrophy. Severe bilateral foramina stenosis. Moderate canal stenosis. C6-7: Disc desiccation. Disc bulge. Facet joints arthropathy. Severe bilateral foramina stenosis. Moderate canal stenosis. C7-T1: No significant foraminal or canal stenosis. Postcontrast images: No abnormal enhancement. MRI/Spine Cervical W/WO Contrast IMPRESSION: Similar to MRI cervical 04/13/2023, Diffuse patchy faint right demyelinating pl aques are present in the central aspect of the cervical cord starting from C2 down to C7. No spinal cord atrophy.. Multilevel degenerate changes predominantly for moderate canal stenosis and sev ere bilateral foramina stenosis at C3-C4, C4-C5 and C5-C6. Reading Location: [facility]
--- OUTSIDE RECORDS SUMMARY | 2025-03-30 06:41 | XMS RPT_ITS | CCD ---
Author Organization [facility] Care Team Providers Care Registered Dental Hygienist Name Role Phone Jaquelin Faustin Unavailable Unava ilable DEAN, BUBBA A. Unavailable Unavailable PETITTI, EMELI M Unavailable Unavailable DEAN, BUBBA A. Unavailable Unavailable JAQUELIN FAUSTIN Unavailable Unava ilable DEAN, BUBBA A. Unavailable Unavailable PETITTI, EMELI M Unavailable Unavailable DEAN, BUBBA A. Unavailable Unavailable JAQUELIN FAUSTIN Unavailable Unava ilable DEAN, BUBBA A. Unavailable Unavailable PETITTI, EMELI M Unavailable Unavailable DEAN, BUBBA A. Unavailable Unavailable JAQUELIN FAUTSIN Unavailable Unava ilable DEAN, BUBBA A. Unavailable Unavailable PETITTI, EMELI M Unavailable Unavailable DEAN, BUBBA A. Unavailable Unavailable JAQUELIN FAUSTIN Unavailable Unava ilable DEAN, BUBBA A. Unavailable Unavailable PETITTI, EMELI M Unavailable Unavailable DEAN, BUBBA A. Unavailable Unavailable JAQUELIN FAUSTIN Unavailable Unava ilable DEAN, BUBBA A. Unavailable Unavailable PETITTI, EMELI M Unavailable Unavailable DEAN, BUBBA A. Unavailable Unavailable JAQUELIN FAUSTIN Unavailable Unava ilable DEAN, BUBBA A. Unavailable Unavailable PETITTI, EMELI M Unavailable Unavailable DEAN, BUBBA A. Unavailable Unavailable JAQUELIN FAUSTIN Unavailable Unava ilable DEAN, BUBBA A. Unavailable Unavailable PETITTI, EMELI M Unavailable Unavailable DEAN, BUBBA A. Unavailable Unavailable JAQUELIN FAUSTIN Unavailable Unava ilable Jaquelin Faustin Primary Care Provider Unavailable Jaquelin Faustin Primary Care Provider MARIA E BACA Admitting Unavailable MARIA E BACA Attending Unavailable JAQUELIN FAUSTIN Primary Care Unava ilable JAQUELIN FAUSTIN Referring Unava ilable DEAN, BUBBA A. Admitting Unavailable DEAN, BUBBA A. Attending Unavailable JAQUELIN FAUSTIN Primary Care Unava ilable Jaquelin Faustin Primary Care Provider Jaquelin Faustin MD Primary Care Provi breanne MARIA E BACA Attending Unavailable JAQUELIN FAUSTIN Primary Care Unava ilkurt Faustin MD, Jaquelin Eason Primary Care Provider [phone] SCOTT PEARSON Referring Unavailable SCOTT PEARSON Attending Unavailable JAQUELIN FAUSTIN Primary Care Unavailable JAQUELIN FAUSTIN Primary Care Unavailable BETH BENNETT Referring Unavailable BETH BENNETT Attending Unavailable Dr. Gordno Delgado Attending Provider Ramin MORALES, Jaquelin Wright [facility] Provi breanne Jaquelin Faustin MD Primary Care Provider [phone] Ramin MORALES, Dr. Hammer Primary Care Provider Humberto MORALES, Dr. Pacheco Attending Provider Humberto MORALES, Dr. Pacheco Referring Provider Ramin MORALES, Dr. Hammer Referring Provider Dr. Gordon Delgado MD Attending Provider Ramin MORALES, Dr. Hammer Primary Care Provider Dr. Tara Paul MD Attending Provider Humberto MORALES, Dr. Pacheco Referring Provider Ramin MORALES, Dr. Hammer Referring Provider [phone] Dr. Gordon Delgado MD Attending Provider Dr. Gordon Delgado MD Referring Provider Care Physician, No Primary Primary Care Provider Unavailable Digna MORALES, Dr. Walter Attending Provider [phone] Care Physician, No Primary Referring Provider Un available Ramin MORALES, Dr. Hammer Primary Care Provider Sandy MORALES, Dr. Leyva Attending Provider Humberto MORALES, Dr. Pacheco Attending Provider Humberto MORALES, Dr. Pacheco Referring Provider DENNYS CALERO MD Consulting Unavailable MUMTAZ MORALES~[id number], MUMTAZ rubi Unavailable MUMTAZ MORALES~[id number], MUMTAZ VILLANUEVA MD, DR~[id number] LARRY Eason Primary Care Unavailable DENNYS CALERO MD Consulting Unavailable HALIMA KING APRN Consulting Unavailab HALIMA Woods Consulting Unavailable MUMTAZ MORALES, MANUEL Pearce Consulting Unavailable MUMTAZ MORALES, MANUEL Pearce Consulting Unavailable RICH MORALES, DR LARRY Eason Consulting Unavailvilma VILLANUEVA MD, DR LARRY Eason Consulting Unavailabl e WOOD DO~[id number], ALYSSA Smith Admitting Unavailable WOOD DO~[id number], ALYSSA Smith Attending Unavailable RICH MORALES DR~[id number] LARRY Eason Primary Care Unavailable RICH MORALES, DR LARRY Eason Consulting Unavailvilma VILLANUEVA MD, DR LARRY Eason Consulting Unavailabl ROSAMARIA Cash Consulting Unavailable BARRIGA DO~[id number], BARRIGA EFREN K Admitting Unavailable BARRIGA DO~[id number], BARRIGA EFREN K Attending Unavailable RICH MORALES DR~[id number] LARRY Eason Primary Care Unavailable ROSAMARIA TIERNEY Consulting Unavailable DENNYS CALERO MD Consulting Unavailable DENNYS CALERO MD Consulting Unavailable RICH MORALES, DR LARRY Eason Consulting Unavailvilma VILLANUEVA MD, DR LARRY Eason Consulting Unavailvilma SCOTT MD~[id number], SONIA SCOTT MD~[id number], OSNIA VILLANUEVA MD, DR~[id number] LARRY Eason Primary Care Unavailable ANDRESSA ROPER MD Consulting Unavailable JACQUELIN MORALES, ANDRESSA Consulting Unavailable SAMMY MORALES, ROSAMARIA Douglas Consulting Unavailable SAMMY MORALES, ROSAMARIA Douglas Consulting Unavailable JOÃO LAGUNA DO Consulting Yun vailable JOÃO LAGUNA DO Consulting Yun arabella WASHBURN MD, DR SINCLAIR Consulting Unava bhanu WASHBURN MD, DR SINCLAIR Consulting Unava ilable DE LOS SANTOS SUPERINTENDENT PRESSURE, MANNY Consulting Unavailable DE [place] SUPERINTENDENT PRESSURE, MANNY Consulting Unavailable RICH MORALES, DR LARRY Eason Consulting Unavailvilma VILLANUEVA MD, DR LARRY Eason Consulting Unavailvilma SCOTT MD, Sarah Ramos Consulting Unavailab cruz SCOTT MD, Sarah Ramos Consulting Unavailab USMAN Cole DO Consulting Unavailable USMAN BECERRA DO Consulting Unavailable URIEL MICHELLE MD Consulting Unavailable URIEL MICHELLE MD Consulting Unavailable RICH MORALES, DR~[id number] LARRY Eason Primary Care Unavailable RICH MORALES, ~[id number] LARRY Eason Admitting Unavailable RICH MORALES, ~[id number] LARRY Eason Attending Unavailable RICH MORALES, DR LARRY Eason Consulting Unavailvilma VILLANUEVA MD, DR LARRY Eason Consulting Unavailvilma CASTRO MD, WILIAM Molina Consulting Unavailable MATTHEW MORALES, WILIAM Molina Consulting Unavailable MADI VASQUEZ DO Consulting Unavailable JASON MORALES, DR~[id number] FITZ Smith Attending Unavailable JASON MORALES, ~[id number] FITZ Smith Admitting Unavailable RICH MORALES, DR~[id number] LARRY Eason Primary Care Unavailable MADI VASQUEZ DO Consulting Unavailable RICH MORALES, DR LARRY Eason Consulting Unavailvilma VILLANUEVA MD, DR LARRY Eason Consulting Unavailvilma GOMEZ MD, DR FITZ Smith Consulting Unavaila jasper GOMEZ MD, DR FITZ Smith Consulting Unavaila jasper CAMPBELL MD~[id number], GOODMAN ABHILASH Ramos Attending Unavailable RAMIN MORALES DR~[id number] JAQUELIN Primary Care Unavailable GOODMAN MORALES~[id number], GOODMAN ABHILASH Ramos Admitting Unavailable RAMIN MORALES, DR HAMMER Consulting Unavail able RAMIN MORALES, DR HAMMER Consulting Unavail kurt CAMPBELL MD, ABHILASH Ramos Consulting Unavailable GOODMAN MORALES, ABHILASH Ramos Consulting Unavailable RICH MORALES, ~[id number] LARRY Eason Primary Care Unavailable RICH MORALES, ~[id number] LARRY Eason Admitting Unavailable RICH MORALES, ~[id number] LARRY Eason Attending Unavailable RICH MORALES, DR LARRY Eason Consulting Unavailvilma VILLANUEVA MD, DR LARRY Eason Consulting Unavailabl sofie VILLANUEVA MD, DR~[id number] LARRY Eason Primary Care Unavailable RICH MORALES, DR~[id number] LARRY Eason Admitting Unavailable RICH MORALES, ~[id number] LARRY Eason Attending Unavailable SILAS TELLEZ Consulting Unavailable DECLINED, Consulting Unavailable RICH MORALES, DR LARRY Eason Consulting Unavailvilma VILLANUEVA MD, DR LARRY Eason Consulting Unavailvilma FAUSTIN MD, DR~ JAQUELIN Consulting Unavailable RAMIN MORALES, DR~ JAQUELIN Primary Care Unavailable GOODMAN MORALES~[id number], GOODMAN ABHILASH Ramos Attending Unavailable GOODMAN MORALES~[id number], GOODMAN ABHILASH Ramos Admitting Unavailable RAMIN MORALES, DR HAMMER Consulting Unavail able GOODMAN MORALES, ABHILASH Ramos Consulting Unavailable GOODMAN MORALES, ABHILASH Ramos Consulting Unavailable RAMIN MORALES, DR~ JAQUELIN Primary Care Unavailable RAMIN MORALES, DR~ JAQUELIN Admitting Unavailable RAMIN MORALES, DR~ JAQUELIN Attending Unavailable RAMIN MORALES, DR HAMMER Consulting Unavail able RAMIN MORALES, DR HAMMER Consulting Unavail able NONE, NONE Consulting Unavailable NURSEREFERRAL, NURSEREFERRAL Consulting Yun vailable RICH MORALES, ~[id number] LARRY Eason Primary Care Unavailable RICH MORALES, ~[id number] LARRY Eason Admitting Unavailable RICH MORALES, ~[id number] LARRY Eason Attending Unavailable RICH MORALES, DR LARRY Eason Consulting Unavailvilma VILALNUEVA MD, DR LARRY Eason Consulting Unavailvilma CAMPBELL MD~[id number] ABHILASH Attending Unavailable GOODMAN MORALES~[id number] ABHILASH Admitting Unavailable GOODMAN MORALES, ABHILASH Ramos Consulting Unavailable RICH MORALES, ~[id number] LARRY Eason Primary Care Unavailable GOODMAN MORALES, ABHILASH Ramos Consulting Unavailable RICH MORALES, ~[id number] LARRY Eason Primary Care Unavailable GOODMAN MORALES~[id number], GOODMAN ABHILASH Ramos Admitting Unavailable GOODMAN MORALES~[id number] ABHILASH Attending Unavailable GOODMAN MORALES, ABHILASH Ramos Consulting Unavailable GOODMAN MORALES, ABHILASH Ramos Consulting Unavailable RICH MORALES, DR LARRY Eason Consulting Unavailabl e RICH MORALES, DR LARRY Eason Consulting Unavailabl e RAMIN MORALES, DR~[id number] JAQUELIN Admitting Unavailable RAMIN MORALES, ~[id number] JAQUELIN Attending Unavailable RAMIN MORALES, ~[id number] JAQUELIN Primary Care Unavailable RAMIN MORALES, DR HAMMER Consulting Unavail able RAMIN MORALES, DR HAMMER Consulting Unavail able RAMIN MORALES, DR~ JAQUELIN Admitting Unavailable RAMIN MORALES, DR~[id number] JAQUELIN Attending Unavailable RAMIN MORALES, ~[id number] JAQUELIN Consulting Unavailable RICH MORALES, ~[id number] LARRY Eason Primary Care Unavailable RAMIN MORALES, DR HAMMER Consulting Unavail able RICH MORALES, DR LARRY Eason Consulting Unavailabl sofie VILLANUEVA MD, DR LARRY Eason Consulting Unavailabl e Care Physician, No Primary Primary Care Physicia n Unavailable Dr. Gordon Delgado MD Attending Physician [phone] Dr. Gordon Delgado MD Referring Provider Care Physician, No Primary Referring Provider Un available Care Physician, No Primary Primary Care Unava ilable Gordon Delgado Attending Unavailable Gordon Delgado Referring Unavailable Humberto, Tara Referring Unavailable Nimeth, Larry Primary Care Unavailable Vellanki, Tara Attending Unavailable Vellanki, Tara Attending Unavailable Faustin, Jaquelin Primary Care Unavailable Vellanjazmin, Tara Referring Unavailable Ramin, Jaquelin Primary Care Unavailable Gordon Delgado Referring Unavailable Gordon Delgado Attending Unavailable Care Physician, No Primary Primary Care Unava ilable Gordon Delgado Attending Unavailable Gordon Delgado Referring Unavailable Care Physician, No Primary Primary Care Unava ilable Jose Angel Sawyer Attending Unavailable Gordon Delgado Referring Unavailable Care Physician, No Primary Primary Care Unava ilable Care Physician, No Primary Referring Unava ilable Gordon Delgado Attending Unavailable Faustin, Jaquelin Referring Unavailable Faustin, Jaquelin Primary Care Unavailable Gordon Delgado Attending Unavailable Faustin, Jaquelin Referring Unavailable Faustin, Jaquelin Primary Care Unavailable Baddour, Gordon Attending Unavailable Faustin, Jaquelin Primary Care Unavailable Baddour, Gordon Referring Unavailable Baddour, Gordon Attending Unavailable Vellanki, Tara Attending Unavailable Faustin, Jaquelin Primary Care Unavailable Vellanki, Tara Referring Unavailable Care Physician, No Primary Primary Care Unava ilable Baddour, Gordon Attending Unavailable Baddour, Gordon Referring Unavailable Vellanki, Tara Attending Unavailable Care Physician, No Primary Primary Care Unava ilable Vellanki, Tara Referring Unavailable Care Physician, No Primary Primary Care Unava ilable Baddour, Gordon Attending Unavailable Baddour, Gordon Referring Unavailable Care Physician, No Primary Primary Care Unava ilable Baddour, Gordon Attending Unavailable Baddour, Gordon Referring Unavailable Allergies Allergy Classification Reported Allergen(s) Allergy Type Date of Onset Reaction(s) Facility Glatiramer (3 sources) Glatiramer; Translations: [GLATIRAMER (COPOLYMER 1)] Drug Allergy 09-03-19 18 Hives [facility] Nitrofurantoin (6 sources) Nitrofurantoin; Translations: [NITROFURANTOIN MACROCRYSTAL] Drug Allergy 03-29-20 03 Anaphylaxis [facility] teriflunomide (3 sources) teriflunomide; Translations: [TERIFLUNOMIDE] Drug Allergy 05-26-19 15 Shortness Of Breath [facility] Tetracyclines (antibiotic) (5 sources) Tetracycline; Translations: [TETRACYCLINE] Drug Allergy 03-29-20 03 [facility] Unclassified (2 sources) Tetracycline (class of antibiotic) Propensity to adverse reactions to drug [facility] (20 sources) glatiramer; Translations: [GLATIRAMER (COPOLYMER 1)] Propensity to adverse reactions to drug 05-26-19 15 Hives, Swelling [facility] (20 sources) nitrofurantoin, macrocrystals; Translations: [NITROFURANTOIN MACROCRYSTALLINE] Propensity to adverse reactions to drug 05-14-19 19 [facility] (20 sources) teriflunomide; Translations: [TERIFLUNOMIDE] Propensity to adverse reactions to drug 05-26-19 15 GI Intolerance, Shortness Of Breath, Nausea Only [facility] Comment on above: Weight loss mental status change (20 sources) tetracycline; Translations: [TETRACYCLINE] Propensity to adverse reactions to drug 03-29-20 03 Hives [facility] (20 sources) Tetracyclines; Translations: [TETRACYCLINES] Propensity to adverse reactions to drug 03-29-20 03 [facility] (14 sources) ADHESIVE TAPE-SILICONES; Translations: [ADHESIVE TAPE-SILICONES] Propensity to adverse reactions to drug 04-14-20 Rash [facility] (1 source) Nitrofurantoin; Translations: [Unknown] Drug Allergy 05-14-19 [facility] (9 sources) Nitrofurantoin; Translations: [NITROFURANTOIN] Drug Allergy 03-29-20 03 Anaphylaxis [facility] (2 sources) Tetracycline (class of antibiotic) Propensity to adverse reactions 03-29-20 03 [facility] (7 sources) Interferon beta-1a Drug Allergy 03-04-20 Other [facility] Comment on above: Mental changes (8 sources) Adhesive Tape; Translations: [adhesive tape] Propensity to adverse reactions 08-03-19 Rash [facility] (6 sources) topiramate Drug Allergy 08-03-19 Shortness of breath [facility] Comment on above: tongue swelling, yaneth rtness of breath, headache, facial rash (1 source) gabapentin Drug Allergy [facility] (1 source) Glatiramer Drug Allergy [facility] (1 source) Hexachlorophene Drug Allergy [facility] (1 source) HYDROmorphone Drug Allergy [facility] (1 source) Interferon beta-1a Drug Allergy [facility] (1 source) natural latex rubber Drug allergy (disorder) [facility] (1 source) Nitrofurantoin Drug Allergy [facility] (1 source) Psyllium Drug Allergy [facility] (1 source) teriflunomide Drug Allergy [facility] (1 source) Tetracycline Drug Allergy [facility] (1 source) topiramate Drug Allergy [facility] (1 source) Triamcinolone Drug Allergy [facility] (1 source) Xcopri Drug allergy (disorder) [facility] (1 source) Glatiramer Drug Allergy 02-28-20 [facility] (1 source) Nitrofurantoin Drug Allergy 02-28-20 [facility] (1 source) teriflunomide Drug Allergy 02-28-20 [facility] (1 source) Tetracycline Drug Allergy 02-28-20 [facility] (1 source) topiramate Drug Allergy 02-28-20 [facility] (1 source) interferon beta-1a Drug allergy (disorder) 02-28-20 [facility] Medications Current Medications Medication Drug Class(es) Dates Sig (Normalized) Sig (Original) acetaminophen 500 mg oral tablet (5 sources) take 1 tablet by mouth every six hours as needed for pain acetaminophen (TYLENOL EXTRA STRENGTH) 500 MG tablet Take 500 mg by mouth every 6 (six) hours as needed for pain . 0 Active acetaminophen 325 mg / oxyCODONE hydrochloride 5 mg oral tablet (20 sources) Opioid Agonist Start: 03-04-2023 Start: 03-04-2023 take 1 tablet by milan twice daily Oxycodone-Acetaminophen Active 1 TABLET PO TWICE A DAY March 03, 2023 11:00pm Start: 03-07-2008 oxycodone hcl/ acetaminophen(ENDOCET 5 MG-325 MG TAB) Take one to two tablets every 4 hours as needed for pain 0 03/07/2008 Active take 2 tablets by mo [facility] once daily as needed for pain, then take 1 tablet by mouth every month as needed for pain oxyCODONE-acetaminophen (PERCOCET) 5-325 mg per tablet Take by mouth if needed for severe pain. 2 daily as needed. PT takes about one a month 0 Active End: 10-18-2018 take 1 tablet by mouth every six hours as needed oxyCODONE-acetaminophen (PERCOCET) 5-325 mg per tablet Take 1 tablet by mouth every 6 (six) hours as needed for pain 0 . 0 10/18/2018 Discontinued baclofen 5 mg oral tablet (20 sources) gamma-Aminobutyric Acid-ergic Agonist Start: 03-30-2019 take 1 tablet by mouth twice daily baclofen 5 mg Tab Take 1 (one) tablet (5 mg total) by mouth 2 (two) times a day . 180 tablet 3 03/30/2019 Active Start: 10-20-2014 End: 03-30-2019 take 1 tablet by mouth once daily in the morning, then take 2 tablets by mouth once daily at bedtime baclofen (LIORESAL) 10 MG tablet Take 1 tab qam and 2 po qhs 0 10/20/2014 03/30/2019 Discontinued Start: 10-20-2014 take 0.5 tablet by m outh twice daily baclofen (LIORESAL) 10 MG tablet Take 1/2 tab by mouth twice times daily. 0 10/20/2014 Active biotin (11 sources) take 500 mg by mouth once daily BIOTIN ORAL Take 500 mg by mouth daily. Active cetirizine hydrochloride 10 mg oral tablet (1 source) Histamine-1 Receptor Antagonist take 1 tablet by mouth once daily cetirizine (ZYRTEC) 10 MG tablet Take 10 mg by mouth daily. Active cholecalciferol 0.05 mg oral capsule (20 sources) Vitamin D Start: take 1 capsule by mouth once daily take 1 capsule by mouth twice da jose cholecalciferol, vitamin D3, (VITAMIN D3) 2,000 unit cap Take 2,000 Units by mouth 2 (two) times a day . 0 Active take 1 tablet by mouth twice [facility] cholecalciferol (VITAMIN D-3) 50 mcg (2,000 unit) tablet Take 1 tablet (2,000 Units total) by mouth 2 (two) times a day. 0 Active take 1 capsule by mouth once [facility] cholecalciferol, vitamin D3, (VITAMIN D3) 2,000 unit cap Take 2,000 Units by mouth daily. 0 Active clobetasol propionate 0.5 mg/ml topical cream (5 sources) Corticosteroid clobetasol (TONY VATE) 0.05 % cream Apply topically 2 (two) times a day PRN . 0 Active clonazePAM 0.5 mg oral tablet (20 sources) Benzodiazepine Start: 03-04-2023 take 1 tablet by mouth twice daily Start: 02-12-2010 take 1 tablet by milan once daily clonazePAM (KLONOPIN) 1 mg ORAL Tab Take one(1) tablet two(2) times daily. 360 1 02/12/2010 Active take 1 tablet by milan th twice daily clonazePAM (KLONOPIN) 1 MG tablet Indications: TAKE DOS for seizures Take 1 mg by mouth 2 (two) times a day Reasons: TAKE DOS for seizures. 0 Active clotrimazole 10 mg/ml topica l cream (2 sources) Azole Antifungal clotrimazole (L OTRIMIN) 1 % cream Apply topically 2 (two) times a day . 0 Active cranberry conc-ascorbic acid 4,200-20 mg capsule (1 source) cranberry conc-a scorbic acid 4,200-20 mg capsule Take by mouth 2 (two) times a day. 0 Active cranberry fruit extract (CRANBERRY ORAL) (20 sources) cranberry fruit extract (CRANBERRY ORAL) Take by mouth 2 (two) times a day . 0 Active cranberry fruit extract (CRANBERRY ORAL) Take by mouth daily. 0 Active cranberry fruit extract (CRANBERRY ORAL) Take by mouth daily. Active CRANBERRY URINARY COMFORT CAP (1 source) Start: 02-12-2006 CRANBERRY URINARY COMFORT CAP 300mg two tablets every morning 0 02/12/2006 Active docusate sodium 100 mg oral capsule (7 sources) Start: 03-04-2023 take 1 capsule by mouth once daily DULoxetine 60 mg delayed release oral capsule (20 sources) Serotonin and Norepinephrine Reuptake Inhibitor Start: 03-04-2023 take 2 tablets by mouth at bedtime take 1 capsule by mouth once [facility] DULoxetine (CYMBALTA) 60 MG capsule Indications: major depressive disorder , 2 TABS HS Take 60 mg by mouth nightly . 0 Active take 1 capsule by mouth twice da jose DULoxetine (CYMBALTA) 60 MG capsule Indications: major depressive disorder Take 60 mg by mouth 2 (two) times a day . Active take 3 capsules by mouth twice d aily DULoxetine (CYMBALTA) 20 MG capsule Take 60 mg by mouth 2 (two) times a day . Active famotidine 40 mg oral tablet (10 sources) Histamine-2 Receptor Antagonist Start: 03-04-2023 take 1 tablet by mouth at bedtime furosemide 40 mg oral tablet (20 sources) Loop Diuretic Start: 03-04-2023 take 1 tablet by mouth once daily End: 10-18-2018 take 1 tablet by mouth once daily furosemide (LASIX) 20 MG tablet Take 20 mg by mouth daily . 0 10/18/2018 Discontinued hydrOXYzine hydrochloride 25 mg oral tablet (15 sources) Antihistamine take 1 tablet by mouth three times daily as needed hydrOXYzine (ATARAX) 25 MG tablet Take 25 mg by mouth 3 (three) times a day as needed for itching . 0 Active take 1 tablet by milan every four hours as needed hydrOXYzine (ATARAX) 50 MG tablet Indications: prn insomnia Take 50 mg by mouth every 4 (four) hours as needed . Active Multivit With Fujlaisz-Nmkn-Ul-Lutein 8 Mg Iron-400 McG-300 McG Tablet (16 sources) take 1 tablet by mouth once daily, then take 8 tablets by mouth vjrdaakr-xnv-kllf-FA-lutein (CENTRUM SILVER WOMEN) 8 mg iron-400 mcg-300 mcg Tab Take 1 tablet by mouth daily. Active Lactobacillus acidophilus (1 source) Start: 006 ACIDOPHILUS CAP Take one(1) tablet two(2) times daily. 0 02/12/2006 Active lactobacillus combo no.6 (PROBIOTIC COMPLEX ORAL) (20 sources) lactobacillus co mbo no.6 (PROBIOTIC COMPLEX ORAL) Take 40 Billion Units by mouth 2 (two) times a day . 0 Active lactobacillus co mbo no.6 (PROBIOTIC COMPLEX ORAL) Take 80 Billion Units by mouth 2 (two) times a day . 0 Active lactobacillus co mbo no.6 (PROBIOTIC COMPLEX ORAL) Take 80 Billion Units by mouth 2 (two) times a day . Active lactobacillus co mbo no.6 (PROBIOTIC COMPLEX ORAL) Take 80 Billion Units by mouth daily. Active lidocaine 25 mg/ml / prilocaine 25 mg/ml topical cream (20 sources) Antiarrhythmic, Amide Local Anesthetic Start: 07-06-2023 End: 02-27-2025 Lidocaine-Prilocaine 2.5-2.5 % cream Active 1 g TOPICAL .QID as needed for pain 30 February 27, 2025 11:16am Complies with drug therapy linaclotide 0.145 mg oral capsule (7 sources) Guanylate Cyclase-C Agonist Start: 03-04-2023 take 1 capsule by mouth once daily 12 hr loratadine 5 mg / pseudoePHEDrine sulfate 120 mg extended release oral tablet (1 source) alpha-Adrenergic Agonist loratadine-pseudoePH EDr ine (loratadine-pseudoephed rine) 5-120 mg Tb12 Take 1 tablet by mouth as needed. Active magnesium (11 sources) take 1 tablet by mouth twice daily magnesium 200 mg Tab Take 1 tablet by mouth 2 (two) times a day. Active medical marijuana YACHT CAPTAIN med (1 source) medical marijuan a YACHT CAPTAIN med 1 each if needed. Topical salve on legs as needed 0 Active mesalamine 1200 mg delayed release oral tablet (3 sources) Aminosalicylate mesalamine (LIAL DA) 1.2 g EC tablet Take 1,200 mg by mouth daily with breakfast . 0 Active MESALAMINE ORAL Take by mouth at bedtime. 0 Active Methylcellulose (1 source) methylcellulose (CITRUCEL ORAL) Take by mouth. 2 daily at lunch. Hold for colonoscopy 03-10 0 Active 24 hr metoprolol succinate 50 mg extended release oral tablet (2 sources) beta-Adrenergic Melissa Start: 02-13-20 take 1.5 tablets by mouth once daily metoprolol succinate XL (TOPROL XL) 100 mg ORAL Tb24 1.5 tabs daily 0 02/12/2010 Active Start: 02-12-2010 take 3 tablets by mo [facility] once daily metoprolol succinate XL (TOPROL XL) 50 mg ORAL Tb24 take three tablets daily 0 02/12/2010 Active qotqagki-qre-tmkv-FA-lutein (CENTRUM SILVER WOMEN) 8 mg iron-400 mcg-300 mcg Tab (7 sources) take 1 tablet by mouth once daily naxoqejh-bzp-dljo-FA-lutein (CENTRUM SILVER WOMEN) 8 mg iron-400 mcg-300 mcg Tab Take 1 tablet by mouth daily. 0 Active multivit/folic acid/vit K1 (WOMEN'S 50 PLUS ADVANCED ORAL) (1 source) multivit/folic a geovanny/vit K1 (WOMEN'S 50 PLUS ADVANCED ORAL) Take by mouth 1 (one) time each day. Centrum Leapforce Women's vitamin 0 Active Multivitamin (Multiple Vitam ins) tablet (7 sources) Start: 2022 Start: 03-04-2023 Multivitamin ( Multiple Vitamins) tablet Active 1 {tbl} PO DAILY March 04, 2023 12:00am Start: 03-04-2023 take 1 tablet [address] [facility] once daily Multivitamin (Multiple Vitamins) tablet Active 1 TABLET PO DAILY March 03, 2023 11:00pm MULTIVITAMIN TAB (1 source) Start: 02-12-2006 MULTIVITAMIN T AB Take one(1) tablet daily. 0 02/12/2006 Active oxyCODONE 9 mg 12 hr extended release oral capsule, abuse-deterrent (6 sources) Opioid Agonist oxyCODONE (Xtamp za ER) 9 mg 12 hr capsule sprinkle Take 9 mg by mouth For low back pain . 0 Active End: 10-18-2018 oxyCODONE (XTAMPZA ER) 9 mg 12 hr capsule sprinkle Take 9 mg by mouth 0 . 0 10/18/2018 Discontinued PARoxetine hydrochloride 40 mg oral tablet (1 source) Serotonin Reuptake Inhibitor Start: 02-12-2006 PAXIL 40 MG TAB Take one(1) tablet daily. 0 02/12/2006 Active phenytoin sodium 100 mg extended release oral capsule (13 sources) Anti-epileptic Agent Start: 07-28-2006 DILANTIN 100 MG CAP 1 in am, 2 at bedtime 270 3 07/28/2006 Active take 2 capsules by mouth once da jose phenytoin (DILANTIN) 100 MG ER capsule Take 200 mg by mouth daily. Active potassium chloride 10 meq extended release oral capsule (12 sources) Start: 03-04-2023 take 1 capsule by mo [facility] once daily take 1 tablet by milan th once daily potassium chloride 10 MEQ CR tablet Take 10 mEq by mouth daily . 0 Active potassium chlori de (KLOR-CON) 10 mEq CR tablet Take 2 tablets (20 mEq total) by mouth 1 (one) time each day. Tablet may be swallowed whole (do not crush/chew/suck on) OR broken in half and each half swallowed separately OR dissolved (whole tablet) in ~4 ounces of water (allow ~2 minutes to dissolve, stir well and administer immediately). 0 Active End: 10-18-2018 take 1 capsule by mouth twice daily, then take 1 capsule by mouth potassium chloride (MICRO-K) 10 MEQ CR capsule Take 10 mEq by mouth 2 (two) times a day . 0 10/18/2018 Discontinued predniSONE 10 mg oral tablet (14 sources) Start: 11-08-2024 Start: 03-04-2023 take 1 tablet by milan th once daily as needed Start: 03-04-2011 predniSONE 20 mg ORAL tablet Take by mouth. Day 1- 3: 3 tabs QAM: Day 4- 6, 2 tabs QAM: Day 7- 10, 1 tab QAM: Day 11- 13, 1/2 tab QAM, then stop. Take with food. 21 tablet 0 03/04/2011 Active pregabalin 75 mg oral capsule (1 source) Start: 02-12-2010 take 1 tablet by mouth once daily pregabalin (LYRICA) 75 mg ORAL Cap Take one(1) tablet two(2) times daily. 0 02/12/2010 Active rizatriptan 10 mg disintegrating oral tablet (1 source) Serotonin-1b and Serotonin-1d Receptor Agonist Start: 03-29-2003 [facility] COORDINATOR 10MG TABLET prn 0 03/29/2003 Active spironolactone 50 mg oral tablet (5 sources) Aldosterone Antagonist take 1 tablet by mouth twice daily spironolactone (ALDACTONE) 50 MG tablet Take 50 mg by mouth 2 (two) times a day . 0 Active take 1 tablet by mouth once danii y spironolactone (ALDACTONE) 50 MG tablet Take 50 mg by mouth daily . 0 Active thyroid (jail) 90 mg oral tablet (12 sources) Start: 02-12-2010 take 1 tablet by mouth once daily Thyroid (ARMOUR THYROID) 90 mg ORAL Tab Take one(1) tablet daily. 0 02/12/2010 Active take 1 tablet by mouth every oth er day thyroid (ARMOUR) 60 mg tablet Take 60 mg by mouth every other day . Active levothyroxine sodium 0.125 m g oral tablet (20 sources) l-Thyroxine Start: 03-04-2023 take 1 tablet by milan th once daily levothyroxine (S YNTHROID, LEVOTHROID) 125 MCG tablet Indications: TAKE DOS Take 120 mcg by mouth at bedtime Mon-Sat / tab Sun Reasons: TAKE DOS. 0 Active levothyroxine (S YNTHROID, LEVOTHROID) 112 mcg tablet Take by mouth 1 (one) time each day. 0 Active levothyroxine (S YNTHROID, LEVOTHROID) 125 MCG tablet Indications: TAKE DOS Take 750 mcg by mouth at bedtime Reasons: TAKE DOS. 0 Active levothyroxine (S YNTHROID, LEVOTHROID) 125 MCG tablet Indications: TAKE DOS Take 150 mcg by mouth every morning Reasons: TAKE DOS. 0 Active take 1 tablet by milan th once daily in the morning levothyroxine (SYNTHROID, LEVOTHROID) 15 0 MCG tablet Indications: TAKE DOS Take 150 mcg by mouth every morning . 0 Active trimethoprim 100 mg oral tablet (1 source) Dihydrofolate Reductase Inhibitor Antibacterial Start: 02-12-2010 take 1 tablet by mouth once daily trimethoprim 100 mg ORAL tablet Take one(1) tablet two(2) times daily. 0 02/12/2010 Active Turmeric extract (1 source) turmeric 400 mg cap Take by mouth . 0 Active UNABLE TO FIND (3 sources) UNABLE TO FIND Cannabis cream . 0 Active Completed/Discontinued Medications Medication Drug Class(es) Dates Sig (Normalized) Sig (Original) amantadine hydrochloride 100 mg oral capsule (7 sources) Influenza A M2 Protein Inhibitor Start: 03-04-2023 End: 08-02-2024 take 1 capsule by mouth twice daily Amantadine Hcl 100 mg capsule Discontinued 100 mg PO TWICE A DAY March 03, 2023 11:00pm August 02, 2024 10:56am cenobamate 100 mg oral tablet (14 sources) Start: 09-12-2024 End: 12-05-2024 take 1 tablet by mouth once daily Cenobamate (Xcopri) 100 mg tablet Discontinued 100 mg PO DAILY 30 November 01, 2024 4:55pm December 05, 2024 12:27pm Start: 08-18-2024 End: 08-24-2024 take 1 tablet by mouth once daily, then take 1 tablet by mouth once daily Cenobamate (Xcopri) 100 mg tablet Discontinued 100 mg PO DAILY 30 August 17, 2024 11:00pm August 24, 2024 4:21pm Begin after completing 2-week titration pack dose of Xcopri 100 mg daily. Cenobamate (10 sources) Start: 09-12-2024 End: 11-13-2024 take 1 tablet by mouth once Cenobamate (Xcopri Titration Pack) 12.5 mg (14)- 25 mg (14) tablets,dose pack Discontinued 0 PO per package directions September 12, 2024 1:19pm November 13, 2024 3:42pm Week 1 to 4: PO PER PKG DIR Start: 09-12-2024 End: 11-13-2024 take 1 tablet by mouth once Cenobamate (Xcopri Titrati on Pack) 12.5 mg (14)- 25 mg (14) tablets,dose pack Discontinued 0 PO per package directions September 12, 2024 2:19pm November 13, 2024 4:42pm Week 1 to 4: PO PER PKG DIR Start: 09-12-2024 take 1 tablet by mouth once Ce nobamate (Xcopri Titration Pack) 12.5 mg (14)- 25 mg (14) tablets,dose pack Active 0 PO per package directions September 12, 2024 2:19pm Week 1 to 4: PO PER PKG DIR Start: 08-18-2024 End: 08-24-2024 take 1 tablet by mouth once Cenobamate (Xcopri Titrati on Pack) 12.5 mg (14)- 25 mg (14) tablets,dose pack Discontinued 0 PO per package directions August 17, 2024 11:00pm August 24, 2024 4:21pm Week 1 to 4: PO PER PKG DIR Start: 08-18-2024 End: 08-24-2024 take 1 tablet by mouth once Cenobamate (Xcopri Titrati on Pack) 12.5 mg (14)- 25 mg (14) tablets,dose pack Discontinued 0 PO per package directions August 18, 2024 12:00am August 24, 2024 5:21pm Week 1 to 4: PO PER PKG DIR Start: 08-18-2024 End: 08-24-2024 take 1 tablet by mouth once Cenobamate (Xcopri Titrati on Pack) 12.5 mg (14)- 25 mg (14) tablets,dose pack Discontinued 0 PO per package directions August 18, 2024 12:00am August 24, 2024 5:21pm Week 1 to 4: PO PER PKG DIR Cenobamate (10 sources) Start: 09-12-2024 End: 11-13-2024 Cenobamate (Xcopri Titration Pack) 50 mg (14)- 100 mg (14) tablets,dose pack Discontinued 0 PO per package directions September 12, 2024 1:20pm November 13, 2024 3:42pm Weeks 5 to 8. PO PER PKG DIR. Began after completing 2-week course of Xcopri 25 mg daily Start: 09-12-2024 End: 11-13-2024 Cenobamate (Xcopri Titration Pack) 50 mg (14)- 100 mg (14) tablets,dose pack Discontinued 0 PO per package directions September 12, 2024 2:20pm November 13, 2024 4:42pm Weeks 5 to 8. PO PER PKG DIR. Began after completing 2-week course of Xcopri 25 mg daily Start: 09-12-2024 Cenobamate (Xc opri Titration Pack) 50 mg (14)- 100 mg (14) tablets,dose pack Active 0 PO per package directions September 12, 2024 2:20pm Weeks 5 to 8. PO PER PKG DIR. Began after completing 2-week course of Xcopri 25 mg daily Start: 08-18-2024 End: 08-24-2024 Cenobamate (Xcopri Titration Pack) 50 mg (14)- 100 mg (14) tablets,dose pack Discontinued 0 PO per package directions August 17, 2024 11:00pm August 24, 2024 4:21pm Weeks 5 to 8. PO PER PKG DIR. Began after completing 2-week course of Xcopri 25 mg daily Start: 08-18-2024 End: 08-24-2024 Cenobamate (Xcopri Titration Pack) 50 mg (14)- 100 mg (14) tablets,dose pack Discontinued 0 PO per package directions August 18, 2024 12:00am August 24, 2024 5:21pm Weeks 5 to 8. PO PER PKG DIR. Began after completing 2-week course of Xcopri 25 mg daily Start: 08-18-2024 End: 08-24-2024 Cenobamate (Xcopri Titration Pack) 50 mg (14)- 100 mg (14) tablets,dose pack Discontinued 0 PO per package directions August 18, 2024 12:00am August 24, 2024 5:21pm Weeks 5 to 8. PO PER PKG DIR. Began after completing 2-week course of Xcopri 25 mg daily gabapentin 100 mg oral capsule (8 sources) Anti-epileptic Agent Start: 09-12-2024 End: 02-27-2025 take 1 capsule by mouth at bedtime Gabapentin 100 mg capsule Discontinued 100 mg PO AT BEDTIME 30 4 November 13, 2024 3:42pm February 27, 2025 11:15am Polyneuropathy Polyneuropathy, unspecified gadoterate meglumine (DOTAREM) injection 17 mL (1 source) Start: 06-14-2018 End: 06-14-2018 gadoterate meglumine (DOTAREM) injection 17 mL hydroCHLOROthiazide 25 mg / triamterene 50 mg oral capsule (1 source) Potassium-sparing Diuretic, Thiazide Diuretic End: 09-02-2017 take 50-25 mg by mouth once triamterene-hydroch lorothiazide (DYAZIDE) 50-25 mg per capsule Take by mouth. 09/02/2017 Discontinued HYDROmorphone hydrochloride 4 mg oral tablet (2 sources) Opioid Agonist End: 03-30-2019 take 1 tablet by mouth three times daily, then take 7 tablets by mouth HYDROmorphone (DILAUDID) 4 MG tablet Take 4 mg by mouth 3 (three) times a day (Days supply per fill: 7) . 0 03/30/2019 Discontinued lamoTRIgine 25 mg oral tablet (6 sources) Mood Stabilizer, Anti-epileptic Agent Start: 08-02-2024 End: 09-12-2024 take 1 tablet by mouth once daily, then take 1 tablet by mouth twice daily, then take 1 tablet by mouth once daily in the morning, then take 2 tablets by mouth once daily in the evening, then take 2 tablets by mouth twice daily Lamotrigine 25 mg tablet Discontinued 25 mg PO .COMPLEX 120 August 01, 2024 11:00pm September 12, 2024 1:17pm 25 mg orally; Take 1 tablet orally daily x 1 week, then 1 tablet twice daily x 1 week, then 1 tablet every morning and 2 tablets every evening for 1 week, then 2 tablets twice daily thereafter levETIRAcetam 1000 mg oral tablet (20 sources) Anti-epileptic Agent Start: 05-30-2024 End: 06-20-2024 take 1 tablet by mouth twice daily Levetiracetam 500 mg tablet Discontinued 500 mg PO TWICE A DAY May 30, 2024 12:00am June 20, 2024 8:32am Take 1 tablet orally twice daily for 2 weeks. Start: 05-30-2024 End: 06-20-2024 take 1 tablet by mouth twice daily Levetiracetam 750 mg tablet Discontinued 750 mg PO TWICE A DAY May 30, 2024 12:00am June 20, 2024 8:32am Take 1 tablet orally twice daily for 2 weeks. Start: 11-19-2023 End: 06-20-2024 take 1 tablet by mouth twice daily Levetiracetam (Keppra) 250 mg tablet Discontinued 250 mg PO TWICE A DAY 60 November 19, 2023 2:30pm June 20, 2024 8:32am Start: 03-04-2023 End: 07-06-2023 take 1 tablet by mouth twice daily Levetiracetam (Keppra) 250 mg tablet Discontinued 250 mg PO TWICE A DAY 60 March 04, 2023 10:18pm July 06, 2023 3:41pm Start: 03-04-2023 End: 02-27-2025 take 1 tablet by mouth twice daily Levetiracetam 1,000 mg tablet Discontinued 1000 mg PO TWICE A DAY 60 June 20, 2024 8:32am August 02, 2024 3:05pm Start: 01-18-2020 End: 12-10-2020 take 2 tablets by mouth once daily in the morning, then take 2 tablets by mouth once daily at bedtime levETIRAcetam (KEPPRA) 500 MG tablet Indications: Seizure (HCC) 2 PO QAM and 2 PO QHS . 360 tablet 3 12/10/2020 Active Start: 10-18-2018 take 2 tablets by mo uth once daily in the morning, then take 1.5 tablets by mouth once daily at bedtime levETIRAcetam (KEPPRA) 500 MG tablet Indications: Seizure (HCC) 2 PO QAM and 1.5 PO QHS . 105 tablet 11 10/18/2018 Active Start: 10-05-2018 End: 10-18-2018 take 1 tablet by mouth twice daily levETIRAcetam (KEPPRA) 1000 MG tablet Take 1 (one) tablet (1,000 mg total) by mouth 2 (two) times a day . 60 tablet 11 10/05/2018 10/18/2018 Discontinued Start: 09-02-2017 End: 07-07-2019 take 1 tablet by mouth twice daily levETIRAcetam (KEPPRA) 500 MG tablet Take 1 (one) tablet (500 mg total) by mouth 2 (two) times a day . 60 tablet 11 07/07/2018 07/07/2019 Active methylPREDNISolone (4 sources) Corticosteroid Start: 11-21-2024 End: 11-24-2024 take 1000 mg intravenously once daily Methylprednisolone 1,000 mg solution Discontinued 1000 mg IV DAILY 3000 3 0 November 20, 2024 11:00pm November 22, 2024 11:00pm November 23, 2024 11:08pm Multiple sclerosis Multiple sclerosis Multiple sclerosis Start: 11-21-2024 End: 11-24-2024 take 1000 mg intravenously once daily Methylprednisolone 1,000 mg solution Discontinued 1000 mg IV DAILY 3000 3 0 November 21, 2024 12:00am November 23, 2024 12:00am November 24, 2024 12:08am Multiple sclerosis Multiple sclerosis Multiple sclerosis Start: 03-03-2011 inject 5 doses intra venously once methylPREDNISolone sodium succinate 1,000 mg INTRAVEN. injection Inject intravenously. Administer per IV infusion protocol, for 5 consecutive days. 5 Each 0 03/03/2011 Active 24 hr rotigotine 0.333 mg/hr transdermal system (20 sources) Start: 03-04-2023 End: 11-29-2024 Rotigotine (Neupro) 8 mg/24 hour patch 24 hour Discontinued 8 mg TD DAILY 90 1 November 13, 2024 3:44pm November 29, 2024 3:20pm rotigotine 8 mg/ 24 hour patch 24 hour Indications: restless leg syndrome Place on the skin 1 (one) time each day. 0 Active rotigotine (NEUP RO) 4 mg/24 hour Indications: 8mg Place 1 patch on the skin daily. Active 1000 ml sodium chloride 9 mg/ml injection (1 source) Start: 03-10-2022 End: 03-14-2022 sodium chloride 0.9 % infusion topiramate 50 mg oral tablet (12 sources) Start: 05-30-2024 End: 06-13-2024 take 1 tablet by mouth once daily, then take 1 tablet by mouth twice daily Topiramate 50 mg tablet Discontinued 50 mg PO .COMPLEX 21 14 May 30, 2024 12:00am June 12, 2024 12:00am June 13, 2024 12:10am Take 1 tablet orally daily for 1 week then 1 tablet twice daily for 1 week. Start: 05-30-2024 End: 06-20-2024 take 1 tablet by mouth twice daily Topiramate 100 mg tablet Discontinued 100 mg PO TWICE A DAY 60 May 30, 2024 12:00am June 20, 2024 8:33am Begin after completing 2-week course of topiramate 50 mg tablets. TRIAMTERENE-HYDROCHLOROTHIAZ ID ORAL (1 source) End: 09-02-2017 TRIAMTERENE-HYDROCHLOROTHIAZ ID ORAL Take by mouth. 09/02/2017 Discontinued TURMERIC, BULK, MISC (7 sources) End: 07-07-2018 TURMERIC, BULK, MISC 1,500 m g by Miscellaneous route 2 (two) times a day. 0 07/07/2018 Discontinued TURMERIC, BULK, MISC 1,500 mg by Miscellaneous route 2 (two) times a day. 0 Active TURMERIC, BULK, MISC 1,500 mg by Miscellaneous route 2 (two) times a day. Active Problems Active Problems Problem Classification Problem Date Documented Da te Episodic/Chronic Chronic kidney disease (1 source) Chronic kidney disease; Translations: [CHRONIC KIDNEY DISEASE STAGE 3A] Onset: 01-13-2025 Complications of surgical procedures or medical care (1 source) Other reaction to spinal and lumbar puncture; Translations: [OTH REACTION SPINAL LUMBAR PUNCTURE] Onset: 02-09-2025 Episodic Disorders of lipid metabolism (1 source) Hyperlipidemia, unspecified; Translations: [HYPERLIPIDEMIA UNSPECIFIED] Onset: 12-14-2024 Chronic Epilepsy; convulsions (20 sources) Epilepsy; Translations: [Epilepsy, unspecified, not intractable, without status epilepticus] Onset: 11-30-2024 03-04-2023 Chronic Epilepsy; convulsions (3 sources) Seizure; Translations: [Unspecified convulsions] Episodic Headache, including migraine (20 sources) Migraine; Translations: [Migraine, unspecified, not intractable, without status migrainosus] Onset: 09-18-2016 09-18-2016 Chronic Headache; including migraine (3 sources) Headache; including migraine; Translations: [HEADACHE UNSPECIFIED] Onset: 02-04-2025 Hypertension with complications and secondary hypertension (1 source) Hypertensive urgency; Translations: [HYPERTENSIVE URGENCY] Onset: 12-14-2024 Chronic Multiple sclerosis (20 sources) Multiple sclerosis; Translations: [Multiple sclerosis] Onset: 09-06-2004 09-02-2017 Chronic Nonspecific chest pain (3 sources) Chest pain, unspecified; Translations: [CHEST PAIN UNSPECIFIED] Onset: 12-05-2024 Episodic Nutritional deficiencies (3 sources) Vitamin D deficiency; Translations: [Vitamin D deficiency, unspecified] Chronic Osteoarthritis (1 source) Bilateral primary osteoarthritis of knee; Translations: [BILATERAL PRIM OSTEOARTHRITIS KNEE] Onset: 03-09-2025 Chronic Osteoporosis (3 sources) Age-related osteoporosis without current pathological fracture; Translations: [AGE-REL OSTEOPOR W/O CURR PATH FX] Onset: 11-01-2024 Chronic Other and unspecified benign neoplasm (1 source) Benign neoplasm of brain; Translations: [Benign neoplasm of brain, unspecified] Onset: 09-06-2004 02-12-2010 Chronic Other circulatory disease (16 sources) Carotid bruit; Translations: [Other specified symptoms and signs involving the circulatory and respiratory systems] 07-07-2023 Episodic Other connective tissue disease (5 sources) Muscle pain; Translations: [Myalgia, unspecified site] 09-12-2024 Episodic Other connective tissue disease (2 sources) Fibromyalgia; Translations: [FIBROMYALGIA] Onset: 12-14-2024 Episodic Other diseases of bladder and urethra (1 source) Disorder of bladder; Translations: [Other specified disorders of bladder] Onset: 03-12-2006 02-12-2010 Chronic Other gastrointestinal disorders (1 source) Chronic idiopathic constipation; Translations: [Chronic idiopathic constipation] Onset: 10-17-2022 Chronic Other inflammatory condition of skin (1 source) Discoid lupus erythematosus; Translations: [DISCOID LUPUS ERYTHEMATOSUS] Onset: 12-14-2024 Chronic Other nervous system disorders (7 sources) Neuropathy; Translations: [Polyneuropathy, unspecified] 07-06-2023 Chronic Other nervous system disorders (1 source) Nerve root disorder; Translations: [Chronic radicular low back pain] Onset: 04-06-2018 04-06-2018 Chronic Other nervous system disorders (6 sources) Polyneuropathy; Translations: [Polyneuropathy, unspecified] 11-13-2024 Chronic Other nervous system disorders (1 source) Disorder of brain, unspecified; Translations: [DISORDER OF BRAIN UNSPECIFIED] Onset: 12-14-2024 Chronic Other nervous system disorders (1 source) Polyneuropathy, unspecified; Translations: [Polyneuropathy, unspecified] Onset: 11-30-2024 Chronic Other non-traumatic joint disorders (1 source) Pain in right knee; Translations: [PAIN IN RIGHT KNEE] Onset: 03-09-2025 Episodic Other non-traumatic joint disorders (1 source) Pain in right shoulder; Translations: [Pain in right shoulder] Onset: 03-17-2025 Episodic Other nutritional; endocrine; and metabolic disorders (3 sources) Morbid (severe) obesity due to excess calories; Translations: [MORBID SEVERE OBES D/T EXCESS JO ANN] Onset: 12-30-2024 Chronic Other nutritional; endocrine; and metabolic disorders (1 source) Obesity, unspecified; Translations: [OBESITY UNSPECIFIED] Onset: 12-14-2024 Chronic Other nutritional; endocrine; and metabolic disorders (1 source) Body mass index (BMI) 40.0-44.9, adult; Translations: [BODY MASS INDEX BMI 40.0-44.9 ADULT] Onset: 12-14-2024 Chronic Rheumatoid arthritis and related disease (2 sources) Rheumatoid arthritis with rheumatoid factor of multiple sites without organ or systems involvement; Translations: [Rheumatoid arthritis with rheumatoid factor of multiple sites without organ or systems involvement] Onset: 11-02-2024 Chronic Spondylosis; intervertebral disc disorders; other back problems (20 sources) Other cervical disc displacement, unspecified cervical region; Translations: [Cervical spondylosis with myelopathy] Onset: 04-06-2018 04-06-2018 Chronic Spondylosis; intervertebral disc disorders; other back problems (20 sources) Spinal stenosis in cervical region; Translations: [Lumbar radiculopathy] Onset: 03-07-2008 04-06-2018 Episodic Spondylosis; intervertebral disc disorders; other back problems (2 sources) 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 disc; Translations: [Disc displacement, lumbar] Onset: 04-06-2018 04-06-2018 Sprains and strains (1 source) Strain of muscle, fascia and tendon at neck level, initial encounter; Translations: [STRN MUSC FASC TENDON NECK LEVL INT] Onset: 01-31-2025 Episodic Systemic lupus erythematosus and connective tissue disorders (1 source) Systemic lupus erythematosus, unspecified; Translations: [Systemic lupus erythematosus, unspecified] Onset: 03-17-2025 Chronic Thyroid disorders (7 sources) Hypothyroidism, unspecified; Translations: [Hypothyroidism due to medicaments and other exogenous substances] Onset: 12-14-2024 Chronic Unclassified (2 sources) Relapsing remitting multiple sclerosis; Translations: [Relapsing remitting multiple sclerosis] 02-27-2025 Chronic Unclassified (1 source) LOW BACK PAIN, UNSPECIFIED; Translations: [LOW BACK PAIN, UNSPECIFIED] Onset: 03-09-2025 Unclassified (1 source) OTH IVD DEG LB WO LB BACK/LE PAIN; Translations: [OTH IVD DEG LB WO LB BACK/LE PAIN] Onset: 03-09-2025 Unclassified (2 sources) Multiple sclerosis, relapsing-remitting 02-27-2025 Unclassified (1 source) Low back pain, unspecified; Translations: [Low back pain, unspecified] Onset: 02-27-2025 Past or Other Problems Problem Classification Problem Date Documented Date Episodic/Chronic E Codes: Adverse effects of medical drugs (1 source) Adverse effect of glucocorticoids and synthetic analogues, initial encounter; Translations: [ADVRS EFF GLUCOCORT SYN ANALOG INIT] Onset: 12-08-2024 Episodic E Codes: Natural/environment (3 sources) Bitten or stung by nonvenomous insect and other nonvenomous arthropods, initial encounter; Translations: [BITTEN NONVENOM INSCT OTH ARTH INIT] Onset: 09-28-2024 Episodic Headache; including migraine (1 source) Drug-induced headache, not elsewhere classified, not intractable; Translations: [DRUG-INDUC HEADACHE NEC NOT INTRACT] Onset: 12-08-2024 Episodic Malaise and fatigue (20 sources) Fatigue; Translations: [Other fatigue] Onset: 09-14-2017 09-14-2017 Episodic Noninfectious gastroenteritis (2 sources) Noninfectious gastroenteritis; Translations: [Noninfective gastroenteritis and colitis, unspecified] Onset: 03-10-2022 Episodic Other aftercare (3 sources) Other long line teamster (current) drug therapy; Translations: [OTH OCEAN EXPORT AGENT CURRENT DRUG THERAPY] Onset: 07-20-2024 Episodic Other circulatory disease (1 source) Other specified symptoms and signs involving the circulatory and respiratory systems; Translations: [Other specified symptoms and signs involving the circulatory and respiratory systems] Onset: 10-13-2024 Episodic Other connective tissue disease (1 source) Myalgia, unspecified site; Translations: [Myalgia, unspecified site] Onset: 10-13-2024 Episodic Other screening for suspected conditions (not mental disorders or infectious disease) (3 sources) Encounter for screening mammogram for malignant neoplasm of breast; Translations: [ENC SCR MAMMO MALIG NEOPLASM BREAST] Onset: 11-04-2024 Episodic Unclassified (20 sources) Other reduced mobility; Translations: [Other specified conditions influencing health status] Onset: 09-14-2017 09-14-2017 Episodic Unclassified (3 sources) Impaired functional mobility, balance, gait, and endurance Results Test Name Value Interpretation Reference Range Facility CBC W/Diff, Automatedon 11 PLT EST ADEQUATE Normal ADEQ [facility] Comment on above: Performed By: #### L 100.0100, L500.4050 #### [facility] [address] [place], [address] SMEAR COMMENT SCANNED Normal [facility] Comment on above: Result Comment: Plea se note: For this sample, a platelet estimate is provided rather than a platelet count due to platelet clumping. Other parameters associated with this sample are not affected by platelet clumping. If a more accurate platelet count is required, a redraw of the patient will be necessary. Performed By: #### L 100.0100, L500.4050 #### [facility] [address] [place], [address] Comprehensive Metabolic Prof ilon 03-17-2025 Albumin [Mass/Vol] 4.1 g/dL Normal 3.4-4.8 [facility] Comment on above: Performed By: #### L 100.0100, L500.4050 #### [facility] [address] [place], [address] Albumin/Globulin [Mass ratio] 1.3 {ratio} Normal 0.9-2.4 [facility] Comment on above: Performed By: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 diffusion. Some of the lesions demonstrate intrinsic T1 signal consistent with burned out lesions. Stable larger more prominent appearing FLAIR hyperintensity involving the paramedian left temporal lobe unchanged from 2013 with minimally expansile appearance. No mass effect, hemorrhage, or hydrocephalus. Grossly normal flow-related signal in the major intracranial arteries and dural sinuses. IMPRESSION: 1. No substantial interval progression of white matter changes relating to known multiple sclerosis compared to 2021. No evidence for active demyelination. 2. Unchanged appearance of expansile T2 FLAIR hyperintense lesion involving the paramedian left temporal lobe when compared to imaging dating back to at least 2013. Imaging appearance is again suggestive of a nonaggressive intracranial neoplasm versus other nonaggressive lesion. Normal [facility] CBC W Reflex Manual Differen tial panel (Bld)on 12-05-2024 Acanthocytes LM Ql (Bld) Normal NONE SEEN [facility] Comment on above: Performed By: #### P BNP, 84086-0, TROP2, #### [facility] [address] [place] [address] [employer] Michelle RUANO [id number] Anisocytosis Ql (Bld) Normal NONE SEEN [facility] Comment on above: Performed By: #### P BNP, 19473-3, TROP2, #### [facility] [address] [place] [address] [employer] Michelle MYERSIA [id number] Michelle rods LM Ql (Bld) Normal NONE SEEN [facility] Comment on above: Performed By: #### P BNP, 03399-9, TROP2, #### [place] [address] [place] [address] [employer] - Michelle MYERSIA [id number] Band form neutrophils/100 WBC (Bld) 0 % Normal <=10 [facility] Comment on above: Performed By: #### P BNP, 12863-2, TROP2, #### [facility] [address] [place] [address] [employer] Michelle RUANO [id number] Basophilic stippling LM Ql (Bld) Normal NONE SEEN [facility] Comment on above: Performed By: #### P BNP, 14153-3, TROP2, #### [facility] [address] [place] [address] [employer] Michelle RUANO [id number] Basophils (Bld) [#/Vol] 0.0 10*3/uL Normal 0.0-0.7 [facility] Comment on above: Performed By: #### P BNP, 53072-5, TROP2, 88895-7 #### [facility] [address] [place] [address] [employer] Michelle MYERSIA [id number] Basophils/100 WBC (Bld) 0 % Normal 0-2 [facility] Comment on above: Performed By: #### P BNP, 60175-9, TROP2, #### [facility] [address] [place] [address] [employer] Michelle RUANO [id number] Blasts/100 WBC (Bld) Normal <=1 [facility] Comment on above: Performed By: #### P BNP, 29009-2, TROP2, #### [facility] [address] [place] [address] [employer] Michelle RUANO [id number] Karthik cells LM Ql (Bld) Normal NONE SEEN [facility] Comment on above: Performed By: #### P BNP, 65708-4, TROP2, #### [place] [address] [place] [address] [employer] Michelle RUANO [id number] Gentry rings LM Ql (Bld) Normal NONE SEEN [facility] Comment on above: Performed By: #### P BNP, 54539-1, TROP2, #### [place] [address] [place] [address] [employer] Michelle RUANO [id number] Dacrocytes LM Ql (Bld) Normal NONE SEEN [facility] Comment on above: Performed By: #### P BNP, 23059-9, TROP2, 23772-0 #### [place] [address] [place] [address] [employer] Michelle RUANO [id number] Dohle body LM Ql (Bld) Normal NONE SEEN [facility] Comment on above: Performed By: #### P BNP, 85978-2, TROP2, #### [facility] [address] [place] [address] [employer] Michelle RUANO [id number] Eosinophils (Bld) [#/Vol] 0.4 10*3/uL Normal 0.0-0.7 [facility] Comment on above: Performed By: #### P BNP, 33000-3, TROP2, 34371-5 #### [facility] [address] [place] [address] [employer] Michelle RUANO [id number] Eosinophils/100 WBC (Bld) 6 % Normal 0-10 [facility] Comment on above: Performed By: #### P BNP, 99119-4, TROP2, 22436-9 #### [facility] [address] [facility] [place] [address] [employer] Michelle RUANO [id number] Erythrocyte distribution width (RBC) [Entitic vol] 49.1 fL High 36.4-46.3 [facility] Comment on above: Performed By: #### P BNP, 64891-9, TROP2, 50084-4 #### [facility] [address] [facility] [place] [address] [employer] Michelle RUANO [id number] Giant platelets LM Ql (Bld) Normal NONE SEEN [facility] Comment on above: Performed By: #### P BNP, 61364-7, TROP2, 22444-5 #### [facility] [address] [facility] [place] [address] [employer] Michelle RUANO [id number] HDIFF MANUAL DIFFERENTIAL Normal [facility] Comment on above: Performed By: #### P BNP, 19067-1, TROP2, 23639-2 #### [facility] [address] [place] [address]. [place] [address] [employer] Michelle RUANO [id number] John bodies Ql (Bld) Normal NONE SEEN [facility] Comment on above: Performed By: #### P BNP, 24438-4, TROP2, 35179-5 #### [facility] [address] [place] [address]. [place] [address] [employer] Michelle RUANO [id number] Hematocrit (Bld) [Volume fraction] 40.4 % Normal 37.0-47.0 [facility] Comment on above: Performed By: #### P BNP, 14688-8, TROP2, #### [facility] [address] [place] [address] [employer] Michelle RUANO [id number] Hemoglobin (Bld) [Mass/Vol] 13.3 g/dL Normal 12.0-16.0 [facility] Comment on above: Performed By: #### P BNP, 60228-4, TROP2, 24643-5 #### [facility] [address] [place] [address] [employer] Michelle RUAON [id number] [place] bodies LM Ql (Bld) Normal NONE SEEN [facility] Comment on above: Performed By: #### P BNP, 33402-3, TROP2, 17902-7 #### [place] [address] [place] [address] [employer] Michelle RUANO [id number] HSCAN RBC MORPHOLOGY SCAN Normal [facility] Comment on above: Performed By: #### P BNP, 05224-3, TROP2, #### [facility] [address] [place] [address] [employer] Michelle RUANO [id number] Hypochromia Ql (Bld) Normal NONE SEEN [facility] Comment on above: Performed By: #### P BNP, 37839-4, TROP2, 44036-8 #### [facility] [address] [place] [address] [employer] Michelle RUANO [id number] Immature granulocytes (Bld) [#/Vol] 0.00 10*3/uL Normal <=0.10 [facility] Comment on above: Performed By: #### P BNP, 88134-4, TROP2, 36958-6 #### [facility] [address] [place] [address] [employer] Michelle RUANO [id number] Leukocyte toxic vacuoles LM Ql (Bld) Normal NONE SEEN [facility] Comment on above: Performed By: #### P BNP, 32918-8, TROP2, #### [facility] [address] [place] [address] [employer] Michelle RUANO [id number] Lymphocytes (Bld) [#/Vol] 1.7 10*3/uL Normal 1.2-3.4 [facility] Comment on above: Performed By: #### P BNP, 63797-4, TROP2, #### [facility] [address] [place] [address] [employer] Michelle RUANO [id number] Lymphocytes/100 WBC (Bld) 27 % Normal 20-40 [facility] Comment on above: Performed By: #### P BNP, 69784-0, TROP2, #### [place] [address] [place] [address] [employer] Michelle RUANO [id number] Macrocytes Ql (Bld) Normal NONE SEEN [facility] Comment on above: Performed By: #### P BNP, 95092-1, TROP2, #### [facility] [address] [place] [address] [employer] Michelle RUANO [id number] MCH (RBC) [Entitic mass] 32.3 pg High 27.0-31.0 [facility] Comment on above: Performed By: #### P BNP, 83604-0, TROP2, 40314-9 #### [facility] [address] [place] [address] [employer] Michelle RUANO [id number] MCHC (RBC) [Mass/Vol] 32.9 g/dL Normal 32.0-36.0 [facility] Comment on above: Performed By: #### P BNP, 66993-3, TROP2, 46386-2 #### [facility] [address] [place] [address] [employer] Michelle RUANO [id number] MCV (RBC) [Entitic vol] 98.1 fL Normal 80.0-100.0 [facility] Comment on above: Performed By: #### P BNP, 67922-4, TROP2, #### [facility] [address] [place] [address] [employer] Michelle Maher CLIA [id number] Metamyelocytes/100 WBC (Bld) 0 % Normal <=1 [facility] Comment on above: Performed By: #### P BNP, 18417-2, TROP2, #### [facility] [address] [place] [address] [employer] Michelle MYERSIA [id number] Microcytes Ql (Bld) Normal NONE SEEN [facility] Comment on above: Performed By: #### P BNP, 53329-3, TROP2, #### [facility] [address] [place] [address] [employer] Michelle Maher CLIA [id number] Monocytes (Bld) [#/Vol] 0.4 10*3/uL Normal 0.1-0.6 [facility] Comment on above: Performed By: #### P BNP, 00550-9, TROP2, #### [facility] [address] [place] [address] [employer] Michelle Maher CLIA [id number] Monocytes/100 WBC (Bld) 7 % Normal 0-8 [facility] Comment on above: Performed By: #### P BNP, 21190-7, TROP2, #### [facility] [address] [place] [address] [employer] Michelle Maher CLIA [id number] Myelocytes/100 WBC (Bld) 0 % Normal [facility] Comment on above: Performed By: #### P BNP, 01903-7, TROP2, #### [facility] [address] [place] [address] [employer] - Michelle Maher CLIA [id number] Neutrophils (Bld) [#/Vol] 3.8 10*3/uL Normal 1.4-6.5 [facility] Comment on above: Performed By: #### P BNP, 63276-7, TROP2, #### [facility] [address] [place] [address] [employer] Michelle RUANO [id number] Neutrophils.vacuolated +Segmented Ql (Bld) Normal NONE SEEN [facility] Comment on above: Performed By: #### P BNP, 68670-8, TROP2, #### [facility] [address] [place] [address] [employer] Michelle RUANO [id number] Nucleated RBC/100 WBC (Bld) [Ratio] Normal <=5 [facility] Comment on above: Performed By: #### P BNP, 70350-5, TROP2, #### [facility] [address] [place] [address] [employer] - Michelle RUANO [id number] Ovalocytes LM Ql (Bld) Normal NONE SEEN [facility] Comment on above: Performed By: #### P BNP, 68012-6, TROP2, #### [facility] [address] [place] [address] [employer] Michelle RUANO [id number] [place] bodies LM Ql (Bld) Normal NONE SEEN [facility] Comment on above: Performed By: #### P BNP, 53265-2, TROP2, #### [facility] [address] [place] [address] [employer] Michelle RUANO [id number] Plasma cells LM Ql (Bld) Normal NONE SEEN [facility] Comment on above: Performed By: #### P BNP, 02080-7, TROP2, #### [facility] [address] [place] [address] [employer] - Michelle RUANO [id number] Platelet clump LM Ql (Bld) Normal NONE SEEN [facility] Comment on above: Performed By: #### P BNP, 85287-0, TROP2, 66007-8 #### [facility] [address] [place] [address] [employer] - Michelle RUANO [id number] Platelet mean volume (Bld) [Entitic vol] 9.6 fL Normal 9.0-13.0 [facility] Comment on above: Performed By: #### P BNP, 47917-2, TROP2, 47539-6 #### [facility] [address] [place] [address] [employer] - Michelle RUANO [id number] Platelet morphology finding Nom (Bld) Normal NONE SEEN [facility] Comment on above: Performed By: #### P BNP, 11257-5, TROP2, 26066-8 #### [facility] [address] [place] [address] [employer] - Michelle RUANO [id number] Platelets (Bld) [#/Vol] 227 10*3/uL Normal 130-400 [facility] Comment on above: Performed By: #### P BNP, 23769-8, TROP2, 30599-2 #### [facility] [address] [place] [address] [employer] - Michelle RUANO [id number] Polychromasia LM Ql (Bld) Normal NONE SEEN [facility] Comment on above: Performed By: #### P BNP, 67678-1, TROP2, 45520-6 #### [facility] [address] [place] [address] [employer] - Michelle RUANO [id number] Promyelocytes/100 WBC (Bld) 0 % Normal [facility] Comment on above: Performed By: #### P BNP, 26373-5, TROP2, 19603-1 #### [facility] [address] [place] [address] [employer] - Michelle RUANO [id number] RBC (Bld) [#/Vol] 4.12 10*6/uL Normal 4.00-6.30 [facility] Comment on above: Performed By: #### P BNP, 92864-5, TROP2, 61499-0 #### [facility] [address] [place] [address] [employer] - Michelle RUANO [id number] Rouleaux LM Ql (Bld) Normal NONE SEEN [facility] Comment on above: Performed By: #### P BNP, 46103-7, TROP2, 04497-1 #### [facility] [address] [place], [place] [address] [place] [address] [employer] - Michelle RUANO [id number] Schistocytes LM Ql (Bld) Normal NONE SEEN [facility] Comment on above: Performed By: #### P BNP, 29403-6, TROP2, #### [address] [place] [address] [employer] - Michelle RUANO [id number] Segmented neutrophils/100 WBC (Bld) 60 % Normal 50-70 [facility] Comment on above: Performed By: #### P BNP, 66469-5, TROP2, 80768-1 #### [facility] [address] [place] [address] [employer] - Michelle RUANO [id number] Sickle cells LM Ql (Bld) Normal NONE SEEN [facility] Comment on above: Performed By: #### P BNP, 10192-7, TROP2, 17142-1 #### [facility] [address] [place], [place] [address] [place] [address] [employer] - Michelle RUANO [id number] Smudge cells LM Ql (Bld) Normal NONE SEEN [facility] Comment on above: Performed By: #### P BNP, 14896-5, TROP2, 23757-0 #### [facility] [address] [place] [address] [employer] - Michelle RUANO [id number] Spherocytes LM Ql (Bld) Normal NONE SEEN [facility] Comment on above: Performed By: #### P BNP, 88995-1, TROP2, 44792-1 #### [facility] [address] [place] [address] [employer] - Michelle RUANO [id number] Stomatocytes LM Ql (Bld) Normal NONE SEEN [facility] Comment on above: Performed By: #### P BNP, 96056-5, TROP2, 17284-0 #### [facility] [address] [place] [address] [employer] - Michelle RUANO [id number] Target cells LM Ql (Bld) Normal NONE SEEN [facility] Comment on above: Performed By: #### P BNP, 31671-8, TROP2, 30532-0 #### [facility] [address] [place] [address] [employer] - Michelle RUANO [id number] Toxic granules LM Ql (Bld) Normal NONE SEEN [facility] Comment on above: Performed By: #### P BNP, 58826-3, TROP2, 07362-3 #### [facility] [address] [place] [address] [employer] - Michelle RUANO [id number] Variant lymphocytes Auto Ql (Bld) 1+ Abnormal NONE SEEN [facility] Comment on above: Performed By: #### P BNP, 63103-2, TROP2, 31685-0 #### [facility] [address] [place] [address] [employer] - Michelle RUANO [id number] WBC (Bld) [#/Vol] 6.40 10*3/uL Normal 4.80-10.80 [facility] Comment on above: Performed By: #### P BNP, 38682-3, TROP2, 00531-5 #### [facility] [address] [place] [address] [employer] Michelle RUANO [id number] CHEST AP PORTABLEon 12-06-19 25 CHEST AP PORTABLE EXAM: CHEST AP PORTABLE HISTORY: . Chest pain . COMPARISON: 07/30/2013 TECHNIQUE: Single view of the chest. FINDINGS: Heart is slightly enlarged with a left ventricular contour. Vascularity is unremarkable. Lungs are free of focal infiltrates. Impression: 1. Cardiac enlargement. 2. No infiltrates noted. Normal [facility] Comprehensive metabolic 2000 panelon 12-05-2024 Albumin [Mass/Vol] 3.6 g/dL Normal 3.4-5.0 [facility] Comment on above: Performed By: #### P BNP, 58577-3, TROP2, 98272-9 #### [facility] [address] [place] [address] [employer] CLIA [id number] ALP [Catalytic activity/Vol] 66 U/L Normal 50-136 [facility] Comment on above: Performed By: #### P BNP, 06829-9, TROP2, 27444-5 #### [facility] [address] [place] [address] [employer] CLIA [id number] ALT [Catalytic activity/Vol] 24 U/L Normal 14-59 [facility] Comment on above: Performed By: #### P BNP, 76449-7, TROP2, 74640-6 #### [facility] [address] [place] [address] [employer] CLIA [id number] Anion gap [Moles/Vol] 9.0 mmol/L Normal <=15.0 [facility] Comment on above: Performed By: #### P BNP, 87207-6, TROP2, 55987-9 #### [facility] [address] [place] [address] [employer] CLIA [id number] AST [Catalytic activity/Vol] 19 U/L Normal 15-37 [facility] Comment on above: Performed By: #### P BNP, 38626-1, TROP2, 86220-9 #### [facility] [address] [place] [address] [employer] [place] [id number] Bilirubin [Mass/Vol] 0.4 mg/dL Normal 0.2-1.0 [facility] Comment on above: Performed By: #### P BNP, 01821-5, TROP2, #### [facility] [address] [place] [address] [employer] - Michelle MYESRIA [id number] Calcium [Mass/Vol] 9.4 mg/dL Normal 8.5-10.1 [facility] Comment on above: Performed By: #### P BNP, 48814-3, TROP2, 41950-6 #### [facility] [address] [place] [address] [employer] - Michelle MYERSIA [id number] Chloride [Moles/Vol] 104 mmol/L Normal 98-107 [facility] Comment on above: Performed By: #### P BNP, 06424-4, TROP2, #### [facility] [address] [place] [address] [employer] - Michelle MYERSIA [id number] CO2 [Moles/Vol] 27 mmol/L Normal 21-32 [facility] Comment on above: Performed By: #### P BNP, 83451-5, TROP2, #### [facility] [address] [place] [address] [employer] - Michelle RUANO [id number] Creatinine [Mass/Vol] 1.00 mg/dL High 0.51-0.95 [facility] Comment on above: Performed By: #### P BNP, 09617-3, TROP2, #### [facility] [address] [place] [address] [employer] - Michelle RUANO [id number] GFR/1.73 sq M.predicted MDRD (S/P/Bld) [Vol rate/Area] 57 mL/min/{1.73_m2} Low >=60 [facility] Comment on above: Performed By: #### P BNP, 67771-2, TROP2, 73649-9 #### [facility] [address] [place] [address] [employer] - Michelle MYERSIA [id number] Glucose [Mass/Vol] 107 mg/dL High 74-106 [facility] Comment on above: Performed By: #### P BNP, 86968-9, TROP2, #### [facility] [address] [place] [address] [employer] Michelle RUANO [id number] HGFR GLOMERULAR FILTRATIO N RATE INTERPRETATION~The eGFR is calculated using the MDRD equation.~This equation has been validated in patients with chronic kidney disease;~however, it underestimates the GFR in healthy patients with GFR's over 60 mL/min.~The equation is not valid in children under the age of 18.~NOTE: Criteria for Chronic Kidney Disease:~ ~1. Kidney damage for at least three months, as defined~by structural or functional abnormalities of the kidney,~with or without decreased glomerular filtration rate, manifested by either:~* Pathological abnormalities or~* Markers of Kidney damage, including abnormalities in~the composition of the blood or urine or abnormalities in imaging tests.~ ~2. GFR <60 mL/min/1.73 m squared for at least three months, with or without kidney damage.~ Normal [facility] Comment on above: Performed By: #### P BNP, 17747-1, TROP2, #### [facility] [address] [place] [address] [employer] - Michelle RUANO [id number] Potassium [Moles/Vol] 4.5 mmol/L Normal 3.5-5.1 [facility] Comment on above: Performed By: #### P BNP, 73971-4, TROP2, #### [facility] [address] [place] [address] [employer] - Michelle RUANO [id number] Protein [Mass/Vol] 7.0 g/dL Normal 6.4-8.2 [facility] Comment on above: Performed By: #### P BNP, 49069-3, TROP2, 88176-2 #### [facility] [address] [place] [address] [employer] - Michelle RUANO [id number] Sodium [Moles/Vol] 140 mmol/L Normal 136-145 [facility] Comment on above: Performed By: #### P BNP, 45618-6, TROP2, 52932-0 #### [facility] [address] [place] [address] [employer] - Michelle RUANO [id number] Urea nitrogen [Mass/Vol] 16 mg/dL Normal 7-17 [facility] Comment on above: Performed By: #### P BNP, 47126-4, TROP2, 67345-0 #### [facility] [address] [place] [address] [employer] - Michelle RUANO [id number] FREE T4on 12-05-2024 Free T4 [Mass/Vol] 1.44 ng/dL Normal 0.76-1.46 [facility] Comment on above: Performed By: #### P BNP, 94727-6, TROP2, 53505-9 #### [facility] [address] [place] [address] [employer] - Michelle RUANO [id number] Fibrin D-dimer Qn (PPP)on Fibrin D-dimer DDU (PPP) [Mass/Vol] 0.28 mg/L Normal 0.19-0.50 [facility] Comment on above: Performed By: #### P BNP, 10522-5, TROP2, 20250-4 #### [facility] [address] [place] [address] [employer] - Michelle RUANO [id number] HDIMER DIMER UNIT CONVERSIO N Effective January 06, 2014 [facility] has changed their unit of measure for D-Dimer testing from ng/mL to mg/L. To convert to ng/mL multiply result by 1000. Normal [facility] Comment on above: Performed By: #### P BNP, 73394-1, TROP2, 96439-9 #### [facility] [address] [place] [address] [employer] - Michelle RUANO [id number] Lipid panel with direct LDLo n 07-28-2025 Cholesterol [Mass/Vol] 201 mg/dL High <=200 [facility] Comment on above: Performed By: #### P BNP, 23652-1, TROP2, 86939-9 #### [facility] [address] [place] [address] [employer] - Michelle MYERSIA [id number] Cholesterol in HDL [Mass/Vol] 49 mg/dL Normal 40-59 [facility] Comment on above: Performed By: #### P BNP, 99588-9, TROP2, 36077-7 #### [facility] [address] [place] [address] [employer] - Michelle MYERSIA [id number] Cholesterol in LDL [Mass/Vol] 94 mg/dL Normal 5-100 [facility] Comment on above: Performed By: #### P BNP, 69831-5, TROP2, 31131-0 #### [facility] [address] [place] [address] [employer] - Michelle MYERSIA [id number] Cholesterol in LDL/Cholesterol in HDL [Mass ratio] 1.9 {ratio} Normal [facility] Comment on above: Performed By: #### P BNP, 98091-3, TROP2, 84322-6 #### [facility] [address] [place] [address] [employer] - Michelle RUANO [id number] Cholesterol.total/Chol esterol in HDL [Mass ratio] 4.1 {ratio} Normal [facility] Comment on above: Performed By: #### P BNP, 92923-3, TROP2, 21397-6 #### [facility] [address] [place] [address] [employer] - Michelle RUANO [id number] HCHOL CHOLESTEROL INTERPRETATION Desirable <200 Borderline High 200-239 High >240 Normal [facility] Comment on above: Performed By: #### P BNP, 99823-3, TROP2, 15386-4 #### [facility] [address] [place] [address] [employer] - Michelle MYERSIA [id number] HLDL LDL INTERPRETATION Desirable <100 Near Optimal 100-129 Borderline High 130-159 High 160-190 Very High >190 Normal [facility] Comment on above: Performed By: #### P BNP, 81247-0, TROP2, 20132-7 #### [facility] [address] [place] [address] [employer] - Michelle RUANO [id number] HLIPID ATEROSCLEROSIS RISK FACTORS FOR LDL, HDL, AND CHOLESTEROL RISK FACTOR SEX LDL/HDL CHOL/HDL 1/2 Average M 1.00 3.43 F 1.47 3.27 Average M 3.55 4.97 F 3.22 4.44 2X Average M 6.25 9.55 F 5.03 7.05 3X Average M 7.99 23.39 F 6.14 11.04 Normal [facility] Comment on above: Performed By: #### P BNP, 83388-0, TROP2, 27192-1 #### [facility] [address] [place] [address] [employer] - Michelle RUANO [id number] HTRIG TRIGLYCERIDES INTERPRETATION Normal <150 Borderline High 150-199 High 200-499 Very High >500 Normal [facility] Comment on above: Performed By: #### P BNP, 07965-9, TROP2, 40821-3 #### [facility] [address] [place] [address] [employer] - Michelle RUANO [id number] Triglyceride [Mass/Vol] 290 mg/dL High <=150 [facility] Comment on above: Performed By: #### P BNP, 86789-1, TROP2, 75350-0 #### [facility] [address] [place] [address] [employer] - Michelle RUANO [id number] MAGNESIUMon 12-05-2024 Magnesium [Mass/Vol] 2.0 mg/dL Normal 1.6-2.6 [facility] Comment on above: Performed By: #### P BNP, 12885-0, TROP2, 00635-8 #### [facility] [address] [place] [address] [employer] - Michelle RUANO [id number] PROBNPon 12-05-2024 Natriuretic peptide.B prohormone N-Terminal [Mass/Vol] 69 pg/mL Normal 5-125 [facility] Comment on above: Performed By: #### P BNP, 70837-0, TROP2, 63123-1 #### [facility] [address] [facility] [place] [address] [employer] - Michelle RUANO [id number] PT and aPTT panel Coag (PPP) on 12-05-2024 aPTT Coag (PPP) [Time] 28.1 s Normal 23.5-31.3 [facility] Comment on above: Performed By: #### P BNP, 24443-3, TROP2, 54275-1 #### [facility] [address] [facility] [place] [address] [employer] - Michelle RUANO [id number] HPTINR INR REFERENCE RANGE INTERPRETATION Patients on Coumadin 2.0 - 3.0 Patients with mechanical heart valves 2.5 - 3.5 Normal [facility] Comment on above: Performed By: #### P BNP, 26996-4, TROP2, 26270-5 #### [facility] [address] [place] [address] [employer] - Michelle RUANO [id number] INR Coag (PPP) [Relative time] 1.1 {INR} Normal 0.8-1.1 [facility] Comment on above: Performed By: #### P BNP, 03054-2, TROP2, 69563-0 #### [facility] [address] [place] [address] [employer] - Michelle RUANO [id number] PT Coag (PPP) [Time] 11.5 s Normal 9.3-11.5 [facility] Comment on above: Performed By: #### P BNP, 57810-9, TROP2, 09151-4 #### [address] [place] [address] [employer] - [facility] [id number] TROPONIN HIGH SENSITIVITYon 12-05-2024 TNIH 4.76 pg/mL Normal <=59.00 [facility] Comment on above: Result Comment: <59 pg/mL is considered a negative result. Performed By: #### P BNP, 31938-7, TROP2, 06004-9 #### [address] Director - [facility] [id number] TNIH 3.98 pg/mL Normal <=59.00 [facility] Comment on above: Result Comment: <59 pg/mL is considered a negative result. Performed By: #### P BNP, 91976-8, TROP2, 14877-3 #### [place] [address] [employer] - [facility] [id number] TSH DL <= 0.05 mIU/L Qnon TSH Qn 4.715 uIU/mL High 0.358-3.740 [facility] Comment on above: Performed By: #### P BNP, 18356-9, TROP2, 29297-3 #### [place] [address] [employer] - [facility] [id number] CBC W Auto Differential pane l (Bld)on 12-01-2024 Basophils (Bld) [#/Vol] 0.01 10*3/uL Normal <=0.70 [facility] Comment on above: Performed By: #### P BNP, 47107-0, TROP2, 83369-4 #### [place] [address] [employer] - [facility] [id number] Basophils/100 WBC (Bld) 0.1 % Normal <=2.0 [facility] Comment on above: Performed By: #### P BNP, 37958-6, TROP2, 77596-2 #### [facility] [address] Director - Michelle RUANO [id number] Eosinophils (Bld) [#/Vol] 0.00 10*3/uL Normal <=0.70 [facility] Comment on above: Performed By: #### P BNP, 04162-3, TROP2, 35496-9 #### [facility] [address] [place] [address] [employer] - Michelle RUANO [id number] Eosinophils/100 WBC (Bld) 0.0 % Normal <=10.0 [facility] Comment on above: Performed By: #### P BNP, 29972-4, TROP2, 06610-1 #### [facility] [address] Director - Michelle RUANO [id number] Erythrocyte distribution width (RBC) [Entitic vol] 47.3 fL High 36.4-46.3 [facility] Comment on above: Performed By: #### P BNP, 33766-6, TROP2, 00534-1 #### [facility] [address] Director - Michelle RUANO [id number] Hematocrit (Bld) [Volume fraction] 37.0 % Normal 37.0-47.0 [facility] Comment on above: Performed By: #### P BNP, 80356-5, TROP2, 98774-4 #### [facility] [address] Director - Michelle RUANO [id number] Hemoglobin (Bld) [Mass/Vol] 12.2 g/dL Normal 12.0-16.0 [facility] Comment on above: Performed By: #### P BNP, 57594-9, TROP2, 49366-3 #### [facility] [address] [place] [address] [employer] - Michelle Maxwellrell [place] [id number] Immature granulocytes (Bld) [#/Vol] 0.08 10*3/uL Normal <=0.10 [facility] Comment on above: Performed By: #### P BNP, 94214-5, TROP2, 18134-9 #### [facility] [address] [place] [address] [employer] - Michelle Maxwellrell CLIA [id number] Immature granulocytes/100 WBC (Bld) 0.60 % Normal <=1.50 [facility] Comment on above: Performed By: #### P BNP, 50156-6, TROP2, 51859-5 #### [facility] [address] [facility] [facility] [place] [id number] Lymphocytes (Bld) [#/Vol] 0.90 10*3/uL Low 1.20-3.40 [facility] Comment on above: Performed By: #### P BNP, 94030-8, TROP2, #### [facility] [address] [place] [address]. [place] [address] [employer] - Michelle RUANO [id number] Lymphocytes/100 WBC (Bld) 6.9 % Low 20.0-40.0 [facility] Comment on above: Performed By: #### P BNP, 55147-3, TROP2, 21021-3 #### [address] [place] [address] [employer] - Michelle RUANO [id number] MCH (RBC) [Entitic mass] 32.6 pg High 27.0-31.0 [facility] Comment on above: Performed By: #### P BNP, 63695-7, TROP2, 59961-4 #### [facility] [address] [facility] [place] [address] [employer] - Michelle RUANO [id number] MCHC (RBC) [Mass/Vol] 33.0 g/dL Normal 32.0-36.0 [facility] Comment on above: Performed By: #### P BNP, 66559-4, TROP2, #### [facility] [address] [place] [address] [employer] - Michelle MYERSIA [id number] MCV (RBC) [Entitic vol] 98.9 fL Normal 80.0-100.0 [facility] Comment on above: Performed By: #### P BNP, 97534-0, TROP2, #### [facility] [address] [place] [address] [employer] - Michelle MYERSIA [id number] Monocytes (Bld) [#/Vol] 1.38 10*3/uL High 0.10-0.60 [facility] Comment on above: Performed By: #### P BNP, 14411-3, TROP2, #### [place] [address] [place] [address] [employer] - Michelle Maher CLIA [id number] Monocytes/100 WBC (Bld) 10.6 % High <=8.0 [facility] Comment on above: Performed By: #### P BNP, 82554-5, TROP2, #### [facility] [address] [place] [address] [employer] - Michelle RUANO [id number] Neutrophils (Bld) [#/Vol] 10.70 10*3/uL High 1.40-6.50 [facility] Comment on above: Performed By: #### P BNP, 49985-2, TROP2, #### [facility] [address] [place] [address] [employer] - Michelle MYERSIA [id number] Neutrophils/100 WBC (Bld) 81.8 % High 50.0-70.0 [facility] Comment on above: Performed By: #### P BNP, 63904-4, TROP2, 84877-9 #### [facility] [address] [place] [address] [employer] - Michelle Maher CLIA [id number] Nucleated RBC (Bld) [#/Vol] 0.00 10*3/uL Normal <=0.10 [facility] Comment on above: Performed By: #### P BNP, 27551-4, TROP2, 09499-0 #### [facility] [address] [place] [address] [employer] - Michelle RUANO [id number] Platelet mean volume (Bld) [Entitic vol] 10.3 fL Normal 9.0-13.0 [facility] Comment on above: Performed By: #### P BNP, 79373-9, TROP2, 81727-6 #### [facility] [address] [place] [address] [employer] - Michelle RUANO [id number] Platelets (Bld) [#/Vol] 251 10*3/uL Normal 130-400 [facility] Comment on above: Performed By: #### P BNP, 77870-8, TROP2, 90376-0 #### [facility] [address] [place] [address] [employer] - Michelle RUANO [id number] RBC (Bld) [#/Vol] 3.74 10*6/uL Low 4.00-6.30 [facility] Comment on above: Performed By: #### P BNP, 62821-1, TROP2, 10775-5 #### [facility] [address] [place] [address] [employer] - Michelle RUANO [id number] WBC (Bld) [#/Vol] 13.07 10*3/uL High 4.80-10.80 [facility] Comment on above: Performed By: #### P BNP, 04284-2, TROP2, 50430-8 #### [facility] [address] [place] [address] [employer] - Michelle RUANO [id number] CT HEAD WITHOUT ONLYon 12-01 CT HEAD WITHOUT ONLY EXAM: CT HEAD WITHO UT ONLY CLINICAL INDICATION: Headache COMPARISON: MRI brain 07/14/2022. TECHNIQUE: Axial CT images of the brain were obtained without contrast. Coronal and sagittal reformats were obtained. Dose reduction techniques were achieved by using automated exposure control and/or adjustment of mA and/or kV according to patient size and/or use of iterative reconstruction technique. FINDINGS: No intracranial hemorrhage, extra-axial fluid collection, hydrocephalus, midline shift, or acute large vessel territory infarction. No other mass effect. Patent basal cisterns. Trace periventricular hypoattenuation is likely on the basis of chronic microvascular angiopathic changes. Symmetric global volume loss without lobar predominance. Commensurate ventricular system caliber prominence. Known ill-defined hypodense lesion involving the medial left temporal lobe is grossly similar (given intermodality differences) when compared to MRI brain 07/14/2022. No calvarial fracture. Normal soft tissues. Trace left mastoid effusion. IMPRESSION: 1. No acute intracranial abnormality. 2. Known ill-defined hypodense lesion involving the medial left temporal lobe is grossly similar (given intermodality differences) when compared to MRI brain 07/14/2022. Normal [facility] Comprehensive metabolic 2000 panelon 12-01-2024 Albumin [Mass/Vol] 3.6 g/dL Normal 3.4-5.0 [facility] Comment on above: Performed By: #### 3 051-0, 3024-7, 77408-9, 06126-5 #### [facility] [address] [place] [address] [employer] - Michelle RUANO [id number] ALP [Catalytic activity/Vol] 65 U/L Normal 50-136 [facility] Comment on above: Performed By: #### 3 051-0, 3024-7, 48076-2, 32331-4 #### [facility] [address] [place] [address] [employer] - Michelle RUANO [id number] ALT [Catalytic activity/Vol] 47 U/L Normal 14-59 [facility] Comment on above: Performed By: #### 3 051-0, 3024-7, 01442-4, 43164-2 #### [facility] [address] [place] [address] [employer] - Michelle RUANO [id number] Anion gap [Moles/Vol] 10.0 mmol/L Normal <=15.0 [facility] Comment on above: Performed By: #### 3 051-0, 3024-7, 15443-0, 12366-1 #### [facility] [address] [place] [address] [employer] - Michelle MYERSIA [id number] AST [Catalytic activity/Vol] 38 U/L High 15-37 [facility] Comment on above: Performed By: #### 3 051-0, 3024-7, 47452-0, 87076-5 #### [facility] [address] [place] [address] [employer] - Michelle MYERSIA [id number] Bilirubin [Mass/Vol] 0.2 mg/dL Normal 0.2-1.0 [facility] Comment on above: Performed By: #### 3 051-0, 3024-7, 60314-6, 61517-8 #### [facility] [address] [place] [address] [employer] - Michelle MYERSIA [id number] Calcium [Mass/Vol] 9.6 mg/dL Normal 8.5-10.1 [facility] Comment on above: Performed By: #### 3 051-0, 3024-7, 62083-5, 20491-7 #### [facility] [address] [place] [address] [employer] - Michelle Maher CLIA [id number] Chloride [Moles/Vol] 106 mmol/L Normal 98-107 [facility] Comment on above: Performed By: #### 3 051-0, 3024-7, 08784-1, 29724-5 #### [facility] [address] [place] [address] [employer] - Michelle Maher CLIA [id number] CO2 [Moles/Vol] 26 mmol/L Normal 21-32 [facility] Comment on above: Performed By: #### 3 051-0, 3024-7, 94305-0, 37279-2 #### [facility] [address] [place] [address] [employer] - [facility] [id number] Creatinine [Mass/Vol] 0.93 mg/dL Normal 0.51-0.95 [facility] Comment on above: Performed By: #### 3 051-0, 3024-7, 46103-7, 80291-3 #### [facility] [address] Director - [facility] [id number] GFR/1.73 sq M.predicted MDRD (S/P/Bld) [Vol rate/Area] mL/min/{1.73_m2} Normal >=60 [facility] Comment on above: Performed By: #### 3 051-0, 3024-7, 94765-1, 15729-5 #### [facility] [address] - [facility] [id number] Glucose [Mass/Vol] 125 mg/dL High 74-106 [facility] Comment on above: Performed By: #### 3 051-0, 3024-7, 68766-2, 57469-6 #### [facility] [address] [facility] - [facility] [id number] HGFR GLOMERULAR FILTRATIO N RATE INTERPRETATION~The eGFR is calculated using the MDRD equation.~This equation has been validated in patients with chronic kidney disease;~however, it underestimates the GFR in healthy patients with GFR's over 60 mL/min.~The equation is not valid in children under the age of 18.~NOTE: Criteria for Chronic Kidney Disease:~ ~1. Kidney damage for at least three months, as defined~by structural or functional abnormalities of the kidney,~with or without decreased glomerular filtration rate, manifested by either:~* Pathological abnormalities or~* Markers of Kidney damage, including abnormalities in~the composition of the blood or urine or abnormalities in imaging tests.~ ~2. GFR <60 mL/min/1.73 m squared for at least three months, with or without kidney damage.~ Normal [facility] Comment on above: Performed By: #### 3 051-0, 3024-7, 76843-6, 43380-1 #### [facility] [address] [place] [address] [employer] - Michellececilia [place] [id number] Potassium [Moles/Vol] 4.4 mmol/L Normal 3.5-5.1 [facility] Comment on above: Performed By: #### 3 051-0, 3024-7, 47851-3, 21624-4 #### [facility] [address] [place] [address] [employer] - Michellececilia MYERSIA [id number] Protein [Mass/Vol] 7.0 g/dL Normal 6.4-8.2 [facility] Comment on above: Performed By: #### 3 051-0, 3024-7, 19492-1, 19971-4 #### [facility] [address] [place] [address] [employer] - Michelle Maher CLIA [id number] Sodium [Moles/Vol] 142 mmol/L Normal 136-145 [facility] Comment on above: Performed By: #### 3 051-0, 3024-7, 40567-6, 64159-3 #### [facility] [address] [place] [address] [employer] - Michellececilia MYERSIA [id number] Urea nitrogen [Mass/Vol] 14 mg/dL Normal 7-17 [facility] Comment on above: Performed By: #### 3 051-0, 3024-7, 38632-0, 86556-4 #### [facility] [address] [place] [address] [employer] - [employer] an [employer] qunbIA [id number] TROPONIN HIGH SENSITIVITYon 12-01-2024 TNIH 8.38 pg/mL Normal <=59.00 [facility] Comment on above: Result Comment: <59 pg/mL is considered a negative result. Performed By: #### 3 051-0, 3024-7, 74702-0, 01758-1 #### [facility] [address] [place] [address] [employer] - Michelle RUANO [id number] MAMMOGRAM SCREENING BI INCL CAD W TOMOon 11-08-2024 MAMMOGRAM SCREENING BI INCL CAD W [place] EXAMINATION: BILATERAL DIGITAL SCREENING MAMMOGRAM WITH TOMOSYNTHESIS INDICATION: Annual screening exam. COMPARISON: Studies dating back to 2019 were reviewed. TECHNIQUE: Standard mammographic views, 2D and 3D. Computer-aided detection was utilized in the interpretation of this exam. FINDINGS:There are scattered areas of fibroglandular density. Stable calcifications. No suspicious masses, calcifications, or other findings. IMPRESSION: No evidence of malignancy. RECOMMENDATION: BIRADS: 2 - Benign, no evidence of malignancy. Normal interval followup is recommended in 12 months. OVERALL ASSESSMENT- BENIGN A letter of notification will be sent to the patient regarding the results. Normal [facility] Absolute lymphocyte countOrd ered By: Tara Paul on 10-27-2024 Lymphocytes Auto (Unsp spec) [#/Vol] 1.05 10*3/uL 0.83-4.51 [facility] Absolute neutrophil countOrd ered By: [facility] Humberto on 10-27-2024 Neutrophils (Bld) [#/Vol] 6.4 10*3/uL 2.0-7.7 [facility] Anion gap in Serum or Plasma Ordered By: Tara Paul on 10-27-2024 Anion gap [Moles/Vol] 12 mmol/L 5-15 [facility] Automated lymphocyte count a s percentage of total leukocytesOrdered By: Tara Paul on 10-27-2024 Lymphocytes/100 WBC Auto (Unsp spec) 12.7 % Low 19-41 [facility] BUN/creatinine ratioOrdered By: Tarapuma Paul on 10-27-2024 Urea nitrogen/Creatinine [Mass ratio] 19.2 mg/mg 10-20 [facility] Basophil percentageOrdered B y: Tara Paul on 10-27-2024 Basophils/100 WBC (Bld) 0.6 % 0-1 [facility] Bilirubin, totalOrdered By: Tara Paul on 10-27-2024 Bilirubin [Mass/Vol] 0.26 mg/dL 0.00-1.30 [facility] CBC W/Diff, Automatedon - Absolute Lymph 1.05 X10 3/uL Normal 0.83-4.51 [facility] Comment on above: Performed By: #### L 500.4050, L100.0100 #### [facility] [address] [place], [address] Absolute Neut 6.4 X10 3/uL Normal 2.0-7.7 [facility] Comment on above: Performed By: #### L 500.4050, L100.0100 #### [facility] [address] [place], [address] Basophils/100 WBC (Bld) 0.6 % Normal 0-1 [facility] Comment on above: Performed By: #### L 500.4050, L100.0100 #### [facility] [address] [place], [address] Eosinophils/100 WBC (Bld) 0.2 % Normal 0-5 [facility] Comment on above: Performed By: #### L 500.4050, L100.0100 #### [facility] [address] [place], [address] Erythrocyte distribution width (RBC) [Ratio] 12.3 % Normal 11.6-14.6 [facility] Comment on above: Performed By: #### L 500.4050, L100.0100 #### [facility] [address] [place], [address] Hematocrit (Bld) [Volume fraction] 41.7 % Normal 37-47 [facility] Comment on above: Performed By: #### L 500.4050, L100.0100 #### [facility] [address] [place], [address] Hemoglobin (Bld) [Mass/Vol] 13.7 g/dL Normal 12.0-15.0 [facility] Comment on above: Performed By: #### L 500.4050, L100.0100 #### [facility] [address] [place], [address] IG% 0.600 Normal 0.0-0.9 [facility] Comment on above: Result Comment: IG% - Immature Granulocytes (promyelocytes, myelocytes and metamyelocytes) > 1% indicates that a LEFT SHIFT is Present. Performed By: #### L 500.4050, L100.0100 #### [facility] [address] [place], [address] Lymphocytes/100 WBC (Bld) 12.7 % Low 19-41 [facility] Comment on above: Performed By: #### L 500.4050, L100.0100 #### [facility] [address] [place], [address] MCH (RBC) [Entitic mass] 32.2 pg High 27.0-32.0 [facility] Comment on above: Performed By: #### L 500.4050, L100.0100 #### [facility] [address] [place], [address] MCHC (RBC) [Mass/Vol] 32.9 g/dL Normal 32-36 [facility] Comment on above: Performed By: #### L 500.4050, L100.0100 #### [facility] [address] [place], [address] MCV (RBC) [Entitic vol] 97.9 fL Normal 81-99 [facility] Comment on above: Performed By: #### L 500.4050, L100.0100 #### [facility] [address] [place], [address] Monocytes/100 WBC (Bld) 8.3 % Normal 0-10 [facility] Comment on above: Performed By: #### L 500.4050, L100.0100 #### [facility] [address] [place], [address] Neutrophils/100 WBC (Bld) 77.6 % High 47-70 [facility] Comment on above: Performed By: #### L 500.4050, L100.0100 #### [facility] [address] [place], [address] Nucleated RBC (Bld) [#/Vol] 0 10*3/uL Normal 0-5 [facility] Comment on above: Performed By: #### L 500.4050, L100.0100 #### [facility] [address] [place], [address] Platelet mean volume (Bld) [Entitic vol] 10.2 fL Normal 6.2-12.0 [facility] Comment on above: Performed By: #### L 500.4050, L100.0100 #### [facility] [address] [place], [address] Platelets (Bld) [#/Vol] 259 10*3/uL Normal 150-450 [facility] Comment on above: Performed By: #### L 500.4050, L100.0100 #### [facility] [address] [place], [address] RBC (Bld) [#/Vol] 4.26 10*6/uL Normal 4.2-5.4 [facility] Comment on above: Performed By: #### L 500.4050, L100.0100 #### [facility] [address] [place], [address] RDW SD 44.2 fl High 35.1-43.9 [facility] Comment on above: Performed By: #### L 500.4050, L100.0100 #### [facility] [address] [place], [address] WBC (Bld) [#/Vol] 8.3 10*3/uL Normal 4.4-11.0 [facility] Comment on above: Performed By: #### L 500.4050, L100.0100 #### [facility] [address] [place], [address] Carbon dioxide, total [Moles /volume] in Central venous bloodOrdered By: Tara Paul on 10-27-2024 CO2 [Moles/Vol] 22.2 mmol/L 21.0-32.0 [facility] Chloride assayOrdered By: Peng Paul on 10-27-2024 Chloride [Moles/Vol] 104 mmol/L 98-108 [facility] Comprehensive Metabolic Prof ilon 10-27-2024 Albumin [Mass/Vol] 4.0 g/dL Normal 3.4-4.8 [facility] Comment on above: Performed By: #### L 500.4050, L100.0100 #### [facility] [address] [place], [address] Albumin/Globulin [Mass ratio] 1.2 {ratio} Normal 0.9-2.4 [facility] Comment on above: Performed By: #### L 500.4050, L100.0100 #### [facility] [address] [place], [address] ALK PHOS 72 U/L Normal 35-104 [facility] Comment on above: Performed By: #### L 500.4050, L100.0100 #### [facility] [address] [place], [address] ALT [Catalytic activity/Vol] 18 U/L Normal <=34 [facility] Comment on above: Performed By: #### L 500.4050, L100.0100 #### [facility] [address] [place], [address] AST [Catalytic activity/Vol] 26 U/L Normal <=31 [facility] Comment on above: Result Comment: Hemo lysis present, Results??could be affected. ?? Performed By: #### L 500.4050, L100.0100 #### [facility] [address] [place], [address] Bilirubin [Mass/Vol] 0.26 mg/dL Normal 0.00-1.30 [facility] Comment on above: Performed By: #### L 500.4050, L100.0100 #### [facility] [address] [place], [address] BUN/CRE 19.2 RATIO Normal 10-20 [facility] Comment on above: Performed By: #### L 500.4050, L100.0100 #### [facility] [address] [place], [address] Calcium [Mass/Vol] 9.7 mg/dL Normal 7.6-11.0 [facility] Comment on above: Performed By: #### L 500.4050, L100.0100 #### [facility] [address] [place], [address] Chloride [Moles/Vol] 104 mmol/L Normal 98-108 [facility] Comment on above: Performed By: #### L 500.4050, L100.0100 #### [facility] [address] [place], [address] CO2 [Moles/Vol] 22.2 mmol/L Normal 21.0-32.0 [facility] Comment on above: Performed By: #### L 500.4050, L100.0100 #### [facility] [address] [place], [address] Creatinine [Mass/Vol] 1.12 mg/dL Normal 0.70-1.20 [facility] Comment on above: Performed By: #### L 500.4050, L100.0100 #### [facility] [address] [place], [address] GAP 12 Normal 5-15 [facility] Comment on above: Performed By: #### L 500.4050, L100.0100 #### [facility] [address] [place], [address] GFR/1.73 sq M.predicted among non-blacks MDRD (S/P/Bld) [Vol rate/Area] 52 mL/min/{1.73_m2} Low >60 [facility] Comment on above: Result Comment: mL/m in/1.73m2 CKD-EPI Creatinine Equation (2020) Performed By: #### L 500.4050, L100.0100 #### [facility] [address] [place], [address] Globulin (S) [Mass/Vol] 3.3 g/dL Normal 2.2-4.2 [facility] Comment on above: Performed By: #### L 500.4050, L100.0100 #### [facility] [address] [place], [address] Glucose [Mass/Vol] 98 mg/dL Normal 70-99 [facility] Comment on above: Performed By: #### L 500.4050, L100.0100 #### [facility] [address] [place], [address] Potassium [Moles/Vol] 5.2 mmol/L High 3.3-5.1 [facility] Comment on above: Result Comment: Hemo lysis present, Results??could be affected. ?? Performed By: #### L 500.4050, L100.0100 #### [facility] [address] [place], [address] Sodium [Moles/Vol] 139 mmol/L Normal 133-145 [facility] Comment on above: Performed By: #### L 500.4050, L100.0100 #### [facility] [address] [place], [address] T PROT 7.3 g/dL Normal 5.9-8.4 [facility] Comment on above: Performed By: #### L 500.4050, L100.0100 #### [facility] [address] [place], [address] Urea nitrogen [Mass/Vol] 22 mg/dL High -19 [facility] Comment on above: Performed By: #### L 500.4050, L100.0100 #### [facility] [address] [place], [address] Eosinophil percentageOrdered By: Tara Paul on 10-27-2024 Eosinophils/100 WBC (Bld) 0.2 % 0-5 [facility] Erythrocyte distribution wid th ratioOrdered By: Tara Paul on 10-27-2024 Erythrocyte distribution width (RBC) [Ratio] 12.3 % 11.6-14.6 [facility] Erythrocyte distribution wid th standard deviationOrdered By: Tarapuma Paul on 10-27-2024 Erythrocyte distribution width (RBC) [Ratio] 44.2 fl High 35.1-43.9 [facility] Glomerular filtration rate ( GFR) estimation/1.73 sq m using serum, plasma, or whole bOrdered By: Tara Paul on 10-27-2024 GFR/1.73 sq M.predicted among non-blacks MDRD (S/P/Bld) [Vol rate/Area] 52 mL/min/{1.73_m2} Low >60 [facility] Comment on above: mL/min/1.73m2 CKD-EP I Creatinine Equation (2020) Hematocrit Auto (Bld) [Volum e fraction]Ordered By: Tara Paul on 10-27-2024 Hematocrit (Bld) [Volume fraction] 41.7 % 37-47 [facility] Hemoglobin measurementOrdere d By: Tara Paul on 10-27-2024 Hemoglobin (Bld) [Mass/Vol] 13.7 g/dL 12.0-15.0 [facility] Immature granulocytes/100 WB C Auto (Bld)Ordered By: Tara Paul on 10-27-2024 Immature granulocytes/100 WBC (Bld) 0.600 % 0.0-0.9 [facility] Comment on above: IG% - Immature Granu locytes (promyelocytes, myelocytes and metamyelocytes) > 1% indicates that a LEFT SHIFT is Present. Laboratory - Chemistry and C hemistry - challengeOrdered By: Tara Paul on 10-27-2024 AST [Catalytic activity/Vol] 26 U/L <32 [facility] Comment on above: Hemolysis present, R esults could be affected. MCV (mean corpuscular volume ) determinationOrdered By: Tara Paul on 10-27-2024 MCV (RBC) [Entitic vol] 97.9 fL 81-99 [facility] Mean corpuscular hemoglobin (MCH) determinationOrdered By: [facility] Humberto on 10-27-2024 MCH (RBC) [Entitic mass] 32.2 pg High 27.0-32.0 [facility] Mean corpuscular hemoglobin concentration (MCHC) determinationOrdered By: [facility] Humberto on 10-27-2024 MCHC (RBC) [Mass/Vol] 32.9 g/dL 32-36 [facility] Mean platelet volume determi nationOrdered By: Tara Paul on 10-27-2024 Platelet mean volume (Bld) [Entitic vol] 10.2 fL 6.2-12.0 [facility] Monocyte percentageOrdered B y: Tara Paul on 10-27-2024 Monocytes/100 WBC (Bld) 8.3 % 0-10 [facility] Neurology Visit Reporton Neurology Visit Report [facility] [address] [facility] [address], [address] [place] [address] OFFICE VISIT Date of Service: 10/27/24 MR#: [id number] Acct: [id number] Name: SOTERO BETHEA Rep #: [id number] : 1950 Provider: Dr. Gordon schilling MD Age/Sex: 74/F Location: [facility] [place]. Status: Signed with Addenda ADDENDUM by Dr. Gordon Delgado MD on 12/05/24 at 1330 Addendum Addendum (12/05/2024): The patient states that she feels unwell while taking Xcopri and wishes to discontinue this medication. Xcopri will be reduced to 50 mg daily for 1 week then discontinue Xcopri. 12/05/24 1330 Date Gordon Delgado MD cc: * Signed ADDENDUM by Dr. Gordon Delgado MD on 12/01/24 at 1629 Addendum Addendum (09/01/2024): The patient contacted the office and reported that she had an allergic reaction following her second dose of IV methylprednisolone yesterday. She developed a rash involving her face and torso. She was seen in the emergency room and was prescribed diphenhydramine. A third dose of IV methylprednisolone will not be given. She may take the oral prednisone taper as prescribed for her multiple sclerosis exacerbation. 12/01/24 1629 Date Gordon Delgado MD cc: * Signed ADDENDUM by Dr. Gordon Delgado MD on 11/21/24 at 1253 Addendum Addendum (11/21/2024): The patient is experiencing an exacerbation of her multiple sclerosis and her symptoms have not improved with a course of prednisone earlier in 2024. She has completed the course of prednisone. She is experiencing increased lower extremity weakness and is unable to stand. She is experiencing bandlike pain in the torso. Methylprednisolone 1 g IV daily for 3 days followed by a 6-day prednisone taper beginning at 60 mg daily will be prescribed for her multiple sclerosis exacerbation. 11/21/24 1253 Date Gordon Delgado MD cc: * Signed ADDENDUM by Dr. Gordon Delgado MD on 11/13/24 at 1654 Addendum Addendum: Addendum (11/08/2024): Several days ago the patient was outdoors in hot ambient temperature and since that time she has had increased weakness in the lower extremities, increased fatigue, some somnolence. She had a fall yesterday. The symptoms may be due to an exacerbation of her multiple sclerosis. She did not wish to pursue IV methylprednisolone. Prednisone 60 mg daily for 4 days followed by a 5-day taper will be prescribed. 11/13/241653 Date Gordon Delgado MD cc: * Signed HPI HPI Details: Interim History: Sotero returns for follow-up visit. She has a history of Graves' disease status post radioactive iodine treatment, hypothyroidism, epilepsy, and multiple sclerosis. In the , she began to experience gait imbalance. This had progressively worsened and this also included periods of exacerbations that would last for 1 or more weeks then return to her baseline level. She also had impaired motor function in the upper extremities. She developed numbness in the feet and tingling in the hands. She stated that on initial neurological evaluation,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 #### P BNP, 50138-2, TROP2, #### [facility] [address] [place] [address] [employer] [facility] [id number] Meperidine Screen, Urine Negative Normal Eleofd=282 [facility] Comment on above: Result Comment: This test was developed and its performance characteristics determined by [employer]. It has not been cleared or approved by the Food and Drug Administration. Performed By: #### P BNP, 65648-7, TROP2, #### [facility] [address] [place] [address] [employer] [facility] [id number] Methadone Screen, Urine Negative Normal Shtebt=346 [facility] Comment on above: Performed By: #### P BNP, 90465-6, TROP2, #### [facility] [address] [place] [address] [employer] [facility] [id number] Morphine Negative Normal Ssdbip=946 [facility] Comment on above: Performed By: #### P BNP, 99874-6, TROP2, #### [facility] [address] [place] [address] [employer] [facility] [id number] Opiate Screen, Urine See Final Results Normal Cutoff=3 00 [facility] Comment on above: Result Comment: Opia te test includes Codeine, Morphine, Hydromorphone, Hydrocodone. Performed By: #### P BNP, 63007-2, TROP2, 86842-6 #### [facility] [address] [place] [address] [employer] [facility] Maherkishor RUANO [id number] Opiates Positive Abnormal Bbfiez=545 [facility] Comment on above: Result Comment: Opia te test includes Codeine, Morphine, Hydromorphone, Hydrocodone. Performed By: #### P BNP, 01371-1, TROP2, 84624-7 #### [facility] [address] [place] [address] [employer] Michelle RUANO [id number] Oxycodone/Oxymorphone, Urine Negative Normal Wufmqd=482 [facility] Comment on above: Result Comment: Test includes Oxycodone and Oxymorphone Performed By: #### P BNP, 15309-7, TROP2, 43210-3 #### [facility] [address] [place] [address] [employer] Michelle RUANO [id number] pH (U) 4.9 [pH] Normal 4.5-8.9 [facility] Comment on above: Performed By: #### P BNP, 82241-1, TROP2, 88126-0 #### [facility] [address] [place] [address] [employer] Michelle RUANO [id number] Phencyclidine Screen, Urine Negative Normal Cutoff=25 [facility] Comment on above: Performed By: #### P BNP, 85775-6, TROP2, 85114-5 #### [facility] [address] [place] [address] [employer] [place] RUANO [id number] Please Note: Comment Normal [facility] Comment on above: Result Comment: Drug test results should be interpreted in the context of clinical information. Patient metabolic variables, specific drug chemistry, and specimen characteristics can affect test outcome. Technical consultation is available if a test result is inconsistent with an expected outcome. Email: [email or web address] Drug brands, if listed herein, are trademarks of their respective owners. Performed By: #### P BNP, 06478-5, TROP2, 89388-8 #### [facility] [address] [place] [address] [employer] [place] RUANO [id number] Propoxyphene Screen, Urine Negative Normal Agseze=579 [facility] Comment on above: Performed By: #### P BNP, 60922-9, TROP2, 50526-8 #### [facility] [address] [place] [address] [employer] [place] RUANO [id number] Specific gravity (U) [Rel density] 1.016 Normal [facility] Comment on above: Performed By: #### P BNP, 43335-4, TROP2, 22791-0 #### [facility] [address] [place] [address] [employer] - [place] RUANO [id number] Tramadol, Urine Negative Normal Wxukgs=035 [facility] Comment on above: Performed By: #### P BNP, 21972-8, TROP2, 95714-3 #### [facility] [address] [place] [address] [employer] Michelle RUANO [id number] URINE BUPRENORPHINE RANDOM See Final Results Normal Cutoff=10 [facility] Comment on above: Performed By: #### P BNP, 60203-2, TROP2, 55123-2 #### [facility] [address] [place] [address] [employer] [place] RUANO [id number] C REACTIVE PROTEINon 025 CRP [Mass/Vol] 5 mg/L Normal <=10 [facility] Comment on above: Performed By: #### P BNP, 25099-5, TROP2, 47478-5 #### [facility] [address] [place] [address] [employer] [place] RUANO [id number] CBC W Auto Differential pane l (Bld)on 07-20-2024 Basophils (Bld) [#/Vol] 0.06 10*3/uL Normal <=0.70 [facility] Comment on above: Performed By: #### 5 7021-8 #### [facility] [address] [place] [address] [employer] Michelle Maher CLIA [id number] Basophils/100 WBC (Bld) 1.0 % Normal <=2.0 [facility] Comment on above: Performed By: #### 5 7021-8 #### [facility] [address] [place] [address] [employer] Michelle Maher CLIA [id number] Eosinophils (Bld) [#/Vol] 0.16 10*3/uL Normal <=0.70 [facility] Comment on above: Performed By: #### 5 7021-8 #### [place] [address] [place] [address] [employer] Michelle Maher CLIA [id number] Eosinophils/100 WBC (Bld) 2.5 % Normal <=10.0 [facility] Comment on above: Performed By: #### 5 7021-8 #### [place] [address] [place] [address] [employer] Michelle MYERSIA [id number] Erythrocyte distribution width (RBC) [Entitic vol] 46.2 fL Normal 36.4-46.3 [facility] Comment on above: Performed By: #### 5 7021-8 #### [address] [place] [address] [employer] Michelle MYERSIA [id number] Hematocrit (Bld) [Volume fraction] 40.1 % Normal 37.0-47.0 [facility] Comment on above: Performed By: #### 5 7021-8 #### [facility] [address] [place] [address] [employer] Michelle Maher CLIA [id number] Hemoglobin (Bld) [Mass/Vol] 13.0 g/dL Normal 12.0-16.0 [facility] Comment on above: Performed By: #### 5 7021-8 #### [place] [address] [place] [address] [employer] Michelle Maher CLIA [id number] Immature granulocytes (Bld) [#/Vol] 0.03 10*3/uL Normal <=0.10 [facility] Comment on above: Performed By: #### 5 7021-8 #### [place] [address] [facility]. [place] [address] [employer] Michelle Maher CLIA [id number] Immature granulocytes/100 WBC (Bld) 0.50 % Normal <=1.50 [facility] Comment on above: Performed By: #### 5 7021-8 #### [place] [address] [employer] Michelle MYERSIA [id number] Lymphocytes (Bld) [#/Vol] 1.07 10*3/uL Low 1.20-3.40 [facility] Comment on above: Performed By: #### 5 7021-8 #### [place] [address] [employer] Michelle MYERSIA [id number] Lymphocytes/100 WBC (Bld) 17.0 % Low 20.0-40.0 [facility] Comment on above: Performed By: #### 5 7021-8 #### [place] [address] [employer] Michelle MYERSIA [id number] MCH (RBC) [Entitic mass] 31.7 pg High 27.0-31.0 [facility] Comment on above: Performed By: #### 5 7021-8 #### [place] [address] [employer] Michelle MYERSIA [id number] MCHC (RBC) [Mass/Vol] 32.4 g/dL Normal 32.0-36.0 [facility] Comment on above: Performed By: #### 5 7021-8 #### [place] [address] [employer] Michelle MYERSIA [id number] MCV (RBC) [Entitic vol] 97.8 fL Normal 80.0-100.0 [facility] Comment on above: Performed By: #### 5 7021-8 #### [facility] [address] [facility]. [place] [address] [employer] Michelle Maher CLIA [id number] Monocytes (Bld) [#/Vol] 0.76 10*3/uL High 0.10-0.60 [facility] Comment on above: Performed By: #### 5 7021-8 #### [address] [place] [address] [employer] Michelle Maher CLIA [id number] Monocytes/100 WBC (Bld) 12.1 % High <=8.0 [facility] Comment on above: Performed By: #### 5 7021-8 #### [address] [place] [address] [employer] Michelle Maher CLIA [id number] Neutrophils (Bld) [#/Vol] 4.22 10*3/uL Normal 1.40-6.50 [facility] Comment on above: Performed By: #### 5 7021-8 #### [address] [place] [address] [employer] Michelle Maher CLIA [id number] Neutrophils/100 WBC (Bld) 66.9 % Normal 50.0-70.0 [facility] Comment on above: Performed By: #### 5 7021-8 #### [address] [place] [address] [employer] Michelle Maher CLIA [id number] Nucleated RBC (Bld) [#/Vol] 0.00 10*3/uL Normal <=0.10 [facility] Comment on above: Performed By: #### 5 7021-8 #### [address] [place] [address] [employer] Michelle Maher CLIA [id number] Platelet mean volume (Bld) [Entitic vol] 10.2 fL Normal 9.0-13.0 [facility] Comment on above: Performed By: #### 5 7021-8 #### [facility] [address] [place] [address] [employer] Michelle MYERSIA [id number] Platelets (Bld) [#/Vol] 219 10*3/uL Normal 130-400 [facility] Comment on above: Performed By: #### 5 7021-8 #### [facility] [address] [place] [address] [employer] Michelle MYERSIA [id number] RBC (Bld) [#/Vol] 4.10 10*6/uL Normal 4.00-6.30 [facility] Comment on above: Performed By: #### 5 7021-8 #### [facility] [address] [place] [address] [employer] Michelle MYERSIA [id number] WBC (Bld) [#/Vol] 6.30 10*3/uL Normal 4.80-10.80 [facility] Comment on above: Performed By: #### 5 7021-8 #### [facility] [address] [place] [address] [employer] Michelle MYERSIA [id number] CRP [Mass/Vol]on 07-20-2024 RP CRP INTERPRETATION A single CRP determination is of limited diagnostic value while serial determinations help in establishing the trend of an ongoing inflammatory process. CRP values must be interpreted together with other clinical symptoms. "Normal" values should only be used as a guide. Normal [facility] Comment on above: Performed By: #### P BNP, 09919-9, TROP2, 47100-7 #### [facility] [address] [place] [address] [employer] Michelle MYERSIA [id number] Comprehensive metabolic 2000 panelon 07-20-2024 Albumin [Mass/Vol] 3.6 g/dL Normal 3.4-5.0 [facility] Comment on above: Performed By: #### 3 051-0, 3024-7, 85787-5, 86019-4 #### [facility] [address] [place] [address] [employer] Michelle MYERSIA [id number] ALP [Catalytic activity/Vol] 55 U/L Normal 50-136 [facility] Comment on above: Performed By: #### 3 051-0, 3024-7, 83729-2, 96998-1 #### [facility] [address] [place] [address] [employer] Michelle MYERSIA [id number] ALT [Catalytic activity/Vol] 19 U/L Normal 14-59 [facility] Comment on above: Performed By: #### 3 051-0, 3024-7, 92317-4, 36926-2 #### [facility] [address] [place] [address] [employer] Michelle MYERSIA [id number] Anion gap [Moles/Vol] 11.0 mmol/L Normal <=15.0 [facility] Comment on above: Performed By: #### 3 051-0, 3023-7, 44054-3, 12357-3 #### [facility] [address] [place] [address] [employer] Michelle MYERSIA [id number] AST [Catalytic activity/Vol] 22 U/L Normal 15-37 [facility] Comment on above: Performed By: #### 3 051-0, 302-7, 86676-1, 18500-5 #### [facility] [address] [place] [address] [employer] Michelle Maher CLIA [id number] Bilirubin [Mass/Vol] 0.4 mg/dL Normal 0.2-1.0 [facility] Comment on above: Performed By: #### 3 051-0, 3024-7, 22079-9, 73722-0 #### [facility] [address] [place] [address] [employer] Michelle MYERSIA [id number] Calcium [Mass/Vol] 9.1 mg/dL Normal 8.5-10.1 [facility] Comment on above: Performed By: #### 3 051-0, 3024-7, 96519-9, 36912-3 #### [facility] [address] [place] [address] [employer] Michelle MYERSIA [id number] Chloride [Moles/Vol] 104 mmol/L Normal 98-107 [facility] Comment on above: Performed By: #### 3 051-0, 3024-7, 41982-0, 49278-6 #### [facility] [address] [place] [address] [employer] Michelle MYERSIA [id number] CO2 [Moles/Vol] 25 mmol/L Normal 21-32 [facility] Comment on above: Performed By: #### 3 051-0, 3024-7, 22725-1, 89718-4 #### [facility] [address] [place] [address] [employer] Michelle MYERSIA [id number] Creatinine [Mass/Vol] 1.06 mg/dL High 0.51-0.95 [facility] Comment on above: Performed By: #### 3 051-0, 3024-7, 08035-2, 11876-5 #### [facility] [address] [place] [address] [employer] Michelle Maher LOUISIA [id number] GFR/1.73 sq M.predicted MDRD (S/P/Bld) [Vol rate/Area] 54 mL/min/{1.73_m2} Low >=60 [facility] Comment on above: Performed By: #### 3 051-0, 3024-7, 45745-3, 20530-5 #### [facility] [address] [place] [address] [employer] Michelle MYERSIA [id number] Glucose [Mass/Vol] 108 mg/dL High 74-106 [facility] Comment on above: Performed By: #### 3 051-0, 3024-7, 02190-1, 81402-5 #### [facility] [address] [place] [address] [employer] [facility] [id number] HGFR GLOMERULAR FILTRATIO N RATE INTERPRETATION~The eGFR is calculated using the MDRD equation.~This equation has been validated in patients with chronic kidney disease;~however, it underestimates the GFR in healthy patients with GFR's over 60 mL/min.~The equation is not valid in children under the age of 18.~NOTE: Criteria for Chronic Kidney Disease:~ ~1. Kidney damage for at least three months, as defined~by structural or functional abnormalities of the kidney,~with or without decreased glomerular filtration rate, manifested by either:~* Pathological abnormalities or~* Markers of Kidney damage, including abnormalities in~the composition of the blood or urine or abnormalities in imaging tests.~ ~2. GFR <60 mL/min/1.73 m squared for at least three months, with or without kidney damage.~ Normal [facility] Comment on above: Performed By: #### 3 051-0, 3024-7, 69849-0, 38150-3 #### [facility] [address] [facility]. [place] [address] [employer] [facility] [id number] Potassium [Moles/Vol] 4.2 mmol/L Normal 3.5-5.1 [facility] Comment on above: Performed By: #### 3 051-0, 3024-7, 35492-4, 93528-6 #### [facility] [address] [facility]. [place] [address] [employer] [facility] [id number] Protein [Mass/Vol] 6.8 g/dL Normal 6.4-8.2 [facility] Comment on above: Performed By: #### 3 051-0, 3024-7, 79521-0, 12419-3 #### [facility] [address] [place] [address] [employer] [facility] [id number] Sodium [Moles/Vol] 140 mmol/L Normal 136-145 [facility] Comment on above: Performed By: #### 3 051-0, 3024-7, 74077-2, 51386-0 #### [facility] [address] [place] [address] [employer] Michelle RUANO [id number] Urea nitrogen [Mass/Vol] 16 mg/dL Normal 7-17 [facility] Comment on above: Performed By: #### 3 051-0, 3024-7, 07890-9, 85451-1 #### [facility] [address] [place] [address] [employer] - Michelle Maherkishor RUANO [id number] FREE T3on 07-20-2024 Free T3 [Mass/Vol] 2.71 pg/mL Normal 2.18-3.98 [facility] Comment on above: Performed By: #### P BNP, 18258-3, TROP2, 92438-1 #### [facility] [address] [place] [address] [employer] Michelle RUANO [id number] FREE T4on 07-20-2024 Free T4 [Mass/Vol] 1.26 ng/dL Normal 0.76-1.46 [facility] Comment on above: Performed By: #### P BNP, 05766-2, TROP2, 97693-0 #### [facility] [address] [place] [address] [employer] Michelle RUANO [id number] HbA1c Calc (Bld) [Mass fract ion]on 07-20-2024 Average glucose Estimated from glycated hemoglobin (Bld) [Mass/Vol] 114 mg/dL Normal 68-125 [facility] Comment on above: Performed By: #### 3 051-0, 3024-7, 46332-7, 03765-4 #### [facility] [address] [facility] [place] [address] [employer] Michelle Maherkishor RUANO [id number] HA1C A1C INTERPRETATION %A1c (NGSP) Interpretation <5.7 Non-Diabetic Range 5.7 - 6.4 Prediabetic >6.5 Action Suggested The eAG (estimated average glucose) is an estimation of one?s average blood glucose level, calculated based on A1C test results, reported using the same units (mg/dL) seen on blood glucose meters. Normal [facility] Comment on above: Performed By: #### 3 051-0, 3024-7, 17126-0, 74226-3 #### [facility] [address] [place] [address] [employer] Michelle RUANO [id number] HbA1c (Bld) [Mass fraction] 5.6 %A1C Normal 4.2-6.3 [facility] Comment on above: Performed By: #### 3 051-0, 3024-7, 10470-1, 33136-9 #### [facility] [address] [place] [address] [employer] Michelle RUANO [id number] Lipid panel with direct LDLo n 07-20-2024 Cholesterol [Mass/Vol] 193 mg/dL Normal <=200 [facility] Comment on above: Performed By: #### P BNP, 92243-2, TROP2, 81594-2 #### [facility] [address] [place] [address] [employer] Michelle RUANO [id number] Cholesterol in HDL [Mass/Vol] 47 mg/dL Normal 40-59 [facility] Comment on above: Performed By: #### P BNP, 18216-7, TROP2, 40475-1 #### [facility] [address] [place] [address] [employer] Michelle RUANO [id number] Cholesterol in LDL [Mass/Vol] 76 mg/dL Normal 5-100 [facility] Comment on above: Performed By: #### P BNP, 42370-6, TROP2, 69613-5 #### [facility] [address] [place] [address] [employer] Michelle RUANO [id number] Cholesterol in LDL/Cholesterol in HDL [Mass ratio] 1.6 {ratio} Normal [facility] Comment on above: Performed By: #### P BNP, 43248-9, TROP2, 49026-8 #### [facility] [address] [place] [address] [employer] Michelle RUANO [id number] Cholesterol.total/Chol esterol in HDL [Mass ratio] 4.1 {ratio} Normal [facility] Comment on above: Performed By: #### P BNP, 88090-9, TROP2, 24158-8 #### [facility] [address] [place] [address] [employer] Michelle RUANO [id number] HCHOL CHOLESTEROL INTERPRETATION Desirable <200 Borderline High 200-239 High >240 Normal [facility] Comment on above: Performed By: #### P BNP, 66261-4, TROP2, 93614-3 #### [facility] [address] [place] [address] [employer] Michelle RUANO [id number] HLDL LDL INTERPRETATION Desirable <100 Near Optimal 100-129 Borderline High 130-159 High 160-190 Very High >190 Normal [facility] Comment on above: Performed By: #### P BNP, 44173-7, TROP2, 07671-9 #### [facility] [address] [place] [address] [employer] Michelle RUANO [id number] HLIPID ATEROSCLEROSIS RISK FACTORS FOR LDL, HDL, AND CHOLESTEROL RISK FACTOR SEX LDL/HDL CHOL/HDL 1/2 Average M 1.00 3.43 F 1.47 3.27 Average M 3.55 4.97 F 3.22 4.44 2X Average M 6.25 9.55 F 5.03 7.05 3X Average M 7.99 23.39 F 6.14 11.04 Normal [facility] Comment on above: Performed By: #### P BNP, 16287-4, TROP2, 90174-3 #### [facility] [address] [facility] [place] [address] [employer] [facility] [id number] HTRIG TRIGLYCERIDES INTERPRETATION Normal <150 Borderline High 150-199 High 200-499 Very High >500 Normal [facility] Comment on above: Performed By: #### P BNP, 59755-4, TROP2, 97590-4 #### [facility] [address] [place] [address] [employer] [facility] [id number] Triglyceride [Mass/Vol] 350 mg/dL High <=150 [facility] Comment on above: Performed By: #### P BNP, 93741-2, TROP2, 43917-2 #### [facility] [address] [facility] [place] [address] [employer] [facility] [id number] SEDIMENTATION RATEon 025 ESR (Bld) [Velocity] 19 mm/h High 2-15 [facility] Comment on above: Performed By: #### 3 051-0, 3024-7, 63928-6, 66361-3 #### [facility] [address] [facility] [place] [address] [employer] [facility] [id number] TSH DL <= 0.05 mIU/L Qnon TSH Qn 14.990 uIU/mL High 0.358-3.740 [facility] Comment on above: Performed By: #### 3 051-0, 3024-7, 77425-5, 62603-8 #### [facility] [address] [place] [address] [employer] [facility] [id number] URINALYSISon 07-20-2024 Bacteria LM Ql (Urine sed) LARGE Abnormal TRACE [facility] Comment on above: Performed By: #### U A #### [facility] [address] [place] [address] [employer] [facility] [id number] Bilirubin (U) [Mass/Vol] Negative Normal NEGATIVE [facility] Comment on above: Performed By: #### U A #### [facility] [address] [place] [address] [employer] Michelle MYERSIA [id number] Clarity (U) CLEAR Normal CLEAR [facility] Comment on above: Performed By: #### U A #### [facility] [address] [place] [address] [employer] Michelle RUANO [id number] Color (U) YELLOW Normal YELLOW [facility] Comment on above: Performed By: #### U A #### [facility] [address] [place] [address] [employer] Michelle MYERSIA [id number] Glucose Test strip (U) [Mass/Vol] Negative Normal NEGATIVE [facility] Comment on above: Performed By: #### U A #### [facility] [address] [facility] [place] [address] [employer] - Michelle RUANO [id number] HMICRO MICROSCOPIC Normal [facility] Comment on above: Performed By: #### U A #### [facility] [address] [place] [address] [employer] Michelle RUANO [id number] Hyaline casts (Urine sed) [#/Area] 0-8 Normal 0-8 [facility] Comment on above: Performed By: #### U A #### [facility] [address] [place] [address] [employer] - Michelle MYERSIA [id number] Ketones (U) [Mass/Vol] Negative Normal NEGATIVE [facility] Comment on above: Performed By: #### U A #### [facility] [address] [place] [address] [employer] - Michelle MYERSIA [id number] Leukocyte esterase Qn (U) 1+ Abnormal TRACE [facility] Comment on above: Performed By: #### U A #### [facility] [address] [place] [address] [employer] Michelle MYERSIA [id number] Nitrite Ql (U) Negative Normal NEGATIVE [facility] Comment on above: Performed By: #### U A #### [facility] [address] [facility] [place] [address] [employer] - Michelle MYERSIA [id number] pH (U) 5.0 [pH] Low 5.5-7.5 [facility] Comment on above: Performed By: #### U A #### [place] [address] [facility]. [place] [address] [employer] - Michelle RUANO [id number] Protein (U) [Mass/Vol] Negative Normal NEGATIVE [facility] Comment on above: Performed By: #### U A #### [place] [address] [employer] - Michelle MYERSIA [id number] RBC (U) [#/Vol] Negative Normal NEGATIVE [facility] Comment on above: Performed By: #### U A #### [place] [address] [employer] Michelle RUANO [id number] RBC LM.HPF (Urine sed) [#/Area] 0-4 Normal 0-4 [facility] Comment on above: Performed By: #### U A #### [place] [address] [employer] Michelle RUANO [id number] Specific gravity (U) [Rel density] 1.017 Normal 1.010-1.035 [facility] Comment on above: Performed By: #### U A #### [place] [address] [employer] - Michelle MYERSIA [id number] SQUAMOUS EPITHELIALS 0-5 Normal 0-5 [facility] Comment on above: Performed By: #### U A #### [place] [address] [employer] Michelle MYERSIA [id number] Urobilinogen Qn (U) 0.2 {Anita'U}/dL Normal <=1.0 [facility] Comment on above: Performed By: #### U A #### [facility] [address] [place] [address] [employer] Michelle RUANO [id number] WBC LM.HPF (Urine sed) [#/Area] 20-50 Abnormal 0-5 [facility] Comment on above: Performed By: #### U A #### [facility] [address] [place] [address] [employer] Michelle RUANO [id number] VITAMIN B12on 07-20-2024 Cobalamin (Vitamin B12) [Mass/Vol] 887 pg/mL Normal 254-1320 [facility] Comment on above: Performed By: #### P BNP, 90663-1, TROP2, 30668-9 #### [facility] [address] [place] [address] [employer] Michelle RUANO [id number] Neurology Visit Reporton Neurology Visit Report [facility] [address] [place] [address], [address] [place] [address] OFFICE VISIT Date of Service: 05/30/24 MR#: [id number] Acct: [id number] Name: SOTERO BETHEA Rep #: [id number] : 1950 Provider: Dr. Gordon schilling MD Age/Sex: 74/F Location: [facility] [place] Status: Signed HPI HPI Details: Interim History: Sotero returns for follow-up visit. She has a history of Graves' disease status post radioactive iodine treatment, hypothyroidism, epilepsy and multiple sclerosis. In the , she began to experience gait imbalance. This had progressively worsened over time though she did also have periods of exacerbations that would last for 1 or more weeks then return to her baseline level. She also had impaired motor function in the upper extremities. She developed numbness in the feet and tingling in the hands. She stated that on initial neurological evaluation, she was thought to have strokes however in the , she was evaluated by a neurologist at the [facility] and was diagnosed with multiple sclerosis. She stated that a lumbar puncture was performed which did not reveal findings suggestive of multiple sclerosis (official reports of her prior brain imaging studies and lumbar puncture are presently not available). Trials of Avonex (caused mood side effects), Copaxone (caused hives) and Aubagio (caused feeling of generalized sickness and weakness) were not well-tolerated and were discontinued. She has had urinary incontinence since around 2007. In years past, she was treated with courses of IV methylprednisolone for multiple sclerosis exacerbations and these were of benefit. She had an exacerbation of her multiple sclerosis in September and October 2023 manifesting with diffuse pain. She was treated with a course of IV methylprednisolone followed by a prednisone taper and this was of benefit. She has had no further exacerbations of her multiple sclerosis since October 2023. She is seeing a children's nursery assistant, Dr. Paul for treatment of rheumatoid arthritis, restless leg syndrome and systemic lupus erythematosus. She is able to ambulate short distances independently however she generally uses a rollator. She has weakness in the right leg that has been present since at least 2012. She continues to have gait imbalance. 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 She has experienced a bandlike sensation across the lower torso. She has chronic fatigue. She previously tried amantadine for fatigue and this was not of benefit. She has developed numbness in the hands. She denied any history of visual field loss though she did report having diplopia; prism glasses were not of benefit. She underwent bilateral cataract surgery with a right lens implant set for distance vision and she reported having subsequent improvement of her diplopia. She reports a history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 04-06-2023 MCHC (RBC) [Mass/Vol] 32.5 g/dL 32-36 [facility] No Panel InformationOrdered By: Gordon Delgado on 04-06-2023 Estimated GFR (MDRD) Amer 51 mL/min >60 [facility] Comment on above: GFR Calc Estimated GFR (MDRD) Non-Af Amer 42 mL/min >60 [facility] Comment on above: Non- GFR Calc Free Lambda Light Chains, Quant 24.3 mg/L 5.7-26.3 [facility] Levetiracetam (Keppra) Level 53.2 ug/mL 10.0-40.0 [facility] Comment on above: Performed at: - [address] [id number] Director: Robert Hernandez PhD, Phone: [phone] at: [facility] [address] [id number] Director: Lonnie Ponce MD, Phone: [phone] Thyroid Stimulating Hormone (TSH) 2.40 uIU/mL 0.358-3.74 [facility] Whole Blood Vitamin B1 Level 125.8 nmol/L 66.5-200.0 [facility] Platelets bldOrdered By: Zen Delgado on 04-06-2023 Platelets (Bld) [#/Vol] 227 10*3/uL 150-450 [facility] Serum immunoglobulin kappa l ight chains/immunoglobulin lambda light chains mass ratioOrdered By: Gordon Delgado on 04-06-2023 Immunoglobulin light chains.kappa/Immunoglo bulin light chains.lambda (S) [Mass ratio] 2.38 0.26-1.65 [facility] Serum or plasma albumin floyd urement (mass/volume)Ordered By: Gordon Delgado on 04-06-2023 Albumin [Mass/Vol] 3.4 g/dL 3.2-5.0 [facility] Serum or plasma albumin/glob ulin mass ratioOrdered By: Gordon Delgado on 04-06-2023 Albumin/Globulin [Mass ratio] 0.8 {ratio} 0.9-2.4 [facility] Serum or plasma calcitriol m easurement (mass/volume)Ordered By: Gordon Delgado on 04-06-2023 1,25-dihydroxyvitamin D3 [Mass/Vol] 56.8 pg/mL 24.8-81.5 [facility] Comment on above: Performed at: [address] [id number] Director: Lonnie Ponce MD, Phone: [phone] Serum or plasma calcium floyd urement (mass/volume)Ordered By: Gordon Delgado on 04-06-2023 Calcium [Mass/Vol] 8.9 mg/dL 8.5-10.1 [facility] Serum or plasma creatinine m easurement (mass/volume)Ordered By: Gordon Delgado on 04-06-2023 Creatinine [Mass/Vol] 1.32 mg/dL 0.55-1.02 [facility] Comment on above: The validity of the calculated GFR & GFRAA in patients over 70 years has not been determined. Clinical correlation is essential. Serum or plasma folate measu rement (mass/volume)Ordered By: Gordon Delgado on 04-06-2023 Folate [Mass/Vol] 29.60 ng/mL 3.1-55.4 [facility] Serum or plasma immunoglobul in kappa light chains measurement (mass/volume)Ordered By: Gordonjuanjose Delgado on 04-06-2023 Immunoglobulin light chains.kappa [Mass/Vol] 57.9 mg/L 3.3-19.4 [facility] Serum or plasma urea nitroge n measurement (mass/volume)Ordered By: Gordon Delgado on 04-06-2023 Urea nitrogen [Mass/Vol] 18 mg/dL 7-18 [facility] Thin prep Papanicolaou smear with manual screeningOrdered By: Gordon Delgado on 04-06-2023 Thin prep Papanicolaou smear with manual screening 18 U/L 15-37 [facility] Thin prep Papanicolaou smear with manual screening 5 5-15 [facility] COLONOSCOPYon 10-17-2022 Colonoscopy [facility] Patient Name: Sotero Bethea Procedure Date: 10/17/2022 10:39 AM Date of : 1950 Age: 72 Gender: Female Procedure: Colonoscopy Indications: High risk colon cancer surveillance: Personal history of colonic polyps Patient Profile: Refer to note in patient chart for documentation of history and physical. Providers: BETH BENNETT MD, SHAZIA APARICIO MD Referring MD: JAQUELIN FAUSTIN MD Medicines: Monitored Anesthesia Care Moderate Sedation: N/A Complications: No immediate complications. Procedure: Pre-Anesthesia Assessment: - Prior to the procedure, a History and Physical was performed, and patient medications and allergies were reviewed. The patient's tolerance of previous anesthesia was also reviewed. The risks and benefits of the procedure and the sedation options and risks were discussed with the patient. All questions were answered, and informed consent was obtained. Prior Anticoagulants: The patient has taken no anticoagulant or antiplatelet agents. ASA Grade Assessment: III - A patient with severe systemic disease. After reviewing the risks and benefits, the patient was deemed in satisfactory condition to undergo the procedure. After I obtained informed consent, the scope was passed under direct vision. Throughout the procedure, the patient's blood pressure, pulse, and oxygen saturations were monitored continuously. The Colonoscope was introduced through the anus and advanced to the terminal ileum, with identification of the appendiceal orifice and IC valve. The colonoscopy was performed without difficulty. The patient tolerated the procedure well. The quality of the bowel preparation was adequate to identify polyps 6 mm and larger in size. The patient tolerated the procedure well. The quality of the bowel preparation was adequate to identify polyps 6 mm and larger in size. Findings: Hemorrhoids were found on perianal exam. The terminal ileum appeared normal. Four sessile polyps were found in the ascending colon. The polyps were 2 to 3 mm in size. These polyps were removed with a cold snare. Resection and retrieval were complete. Estimated blood loss: none. A 2 mm polyp was found in the transverse colon. The polyp was sessile. The polyp was removed with a cold snare. Resection and retrieval were complete. Estimated blood loss: none. The exam was otherwise without abnormality on direct and retroflexion views. Procedure Code(s): --- Professional --- 06606, Colonoscopy, flexible; with removal of tumor(s), polyp(s), or other lesion(s) by snare technique Diagnosis Code(s): --- Professional --- K63.5, Polyp of colon Z86.010, Personal history of colonic polyps K64.9, Unspecified hemorrhoids CPT copyright 2020 [employer]. All rights reserved. The codes documented in this report are preliminary and upon adjunct phlebotomy instructor review may be revised to meet current compliance requirements. MD BETH Huerta MD 10/17/2022 11:43:24 AM This report has been signed electronically. Scope Withdrawal Time 0 hours 13 minutes 23 seconds Estimated Blood Loss: Estimated blood loss: none. Number of Addenda: 0 Note Initiated On: 10/17/2022 10:39 AM Total Procedure Duration Time 0 hours 17 minutes 26 seconds [address] [place] [address] IMPRESSION: - Hemorrhoids found on perianal exam. - The examined portion of the ileum was normal. - Four 2 to 3 mm polyps in the ascending colon, removed with a cold snare. Resected and retrieved. - One 2 mm polyp in the transverse colon, removed with a cold snare. Resected and retrieved. - The examination was otherwise normal on direct and retroflexion views. Recommendation: - Patient has a contact number available for emergencies. The signs and symptoms of potential delayed complications were discussed with the patient. Return to normal activities tomorrow. Written discharge instructions were provided to the patient. - Resume previous diet. - Continue present medications. - Repeat colonoscopy date to be determined after pending pathology results are reviewed for surveillance based on pathology results. Normal [facility] Dilute Zhao's viper venom timeOrdered By: Tara Paul on 10-14-2022 dRVVT Coag (PPP) [Time] 95.9 s 0.0-47.0 [facility] INR in Blood by Coagulation assayOrdered By: Tara Paul on 10-14-2022 INR Coag (Bld) [Relative time] 1.2 {INR} [facility] Laboratory - CoagulationOrde red By: Tara Paul on 10-14-2022 aPTT Coag (Bld) [Time] 45.9 s 24.1-36.2 [facility] PT Coag (PPP) [Time] 14.9 s 11.7-14.9 [facility] Laboratory - Miscellaneous t estsOrdered By: Tara Paul on 10-14-2022 Service comment (Unsp spec) [Interp] Comment . [facility] Comment on above: Results do not indic ate the presence of a LupusAnticoagulant: abnormal high screening results (PTT-LA,dRVVT, mixing studies), may be due to medication (heparin,warfarin, aspirin), Factor inhibitors, anticardiolipinantibodies, or poor specimen integrity.Performed at: [address] [id number] Director: Lonnie Ponce MD, Phone: [phone] No Panel InformationOrdered By: Tara Paul on 10-14-2022 Hexagonal Phase Phospholipid 10 sec 0-11 [facility] Thin prep Papanicolaou smear with manual screeningOrdered By: Tara Paul on 10-14-2022 Thin prep Papanicolaou smear with manual screening 50.9 sec 0.0-47.6 [facility] Thin prep Papanicolaou smear with manual screening 1.32 Ratio 0.00-1.34 [facility] Thin prep Papanicolaou smear with manual screening 81.9 sec 0.0-43.5 [facility] Thin prep Papanicolaou smear with manual screening 70.1 sec 0.0-40.5 [facility] Thin prep Papanicolaou smear with manual screening Comment: . [facility] Comment on above: Results are consiste nt with the presence of a lupus anticoagulant. As onlypersistent lupus anticoagulant (LA) positivity meets laboratory diagnosticcriteria for antiphospholipid syndrome, repeat testing in 12 or more weeksis recommended, ideally in the absence of anticoagulant therapy.Important Note: The results of LA testing are not valid for patientsreceiving heparin, direct Xa inhibitor (e.g., rivaroxaban, apixaban) ordirect thrombin inhibitor (e.g., dabigatran) therapy. These drugs may causefalse positive LA results but will not interfere with anticardiolipin andbeta-2 glycoprotein 1 antibody testing. Thrombin time in platelet po or plasmaOrdered By: Tara Paul on 10-14-2022 Thrombin time Coag (PPP) [Time] 17.5 sec 0.0-23.0 [facility] Absolute lymphocyte countOrd ered By: Dr. Paul on 09-17-2022 Lymphocytes Auto (Unsp spec) [#/Vol] 1.57 10*3/uL 0.83-4.51 [facility] Basophil percentageOrdered B y: Dr. Paul on 09-17-2022 Basophils/100 WBC (Bld) 0.9 % 0-1 [facility] Bilirubin [Mass/Vol] 0.50 mg/dL 0.20-1.00 [facility] Comment on above: For patients on eltr ombopag therapy, use of Dimension [place] TBIL is not recommended. Chloride [Moles/Vol] 106 mmol/L 98-107 [facility] Eosinophils/100 WBC (Bld) 1.8 % 0-5 [facility] Glucose [Mass/Vol] 128 mg/dL 74-106 [facility] Comment on above: Fasting Glucose resu lt greater than or equal to 126 mg/dL suggests DIABETES MELLITUS per A.D.A. criteria. Neutrophils (Bld) [#/Vol] 6.1 10*3/uL 2.0-7.7 [facility] Neutrophils/100 WBC (Bld) 70.9 % 47-70 [facility] Potassium [Moles/Vol] 4.1 mmol/L 3.5-5.1 [facility] Protein [Mass/Vol] 8.3 g/dL 6.4-8.2 [facility] Sodium [Moles/Vol] 139 mmol/L 136-145 [facility] WBC (Bld) [#/Vol] 8.6 10*3/uL 4.4-11.0 [facility] Bilirubin Test strip Ql (U)O rdered By: Dr. Paul on 09-17-2022 Bilirubin Ql (U) Negative Negative [facility] Blood erythrocytes count (nu mber/volume)Ordered By: Dr. Paul on 09-17-2022 RBC (Bld) [#/Vol] 4.48 10*6/uL 4.2-5.4 [facility] Blood hemoglobin measurement (mass/volume)Ordered By: Dr. Paul on 09-17-2022 Hemoglobin (Bld) [Mass/Vol] 13.8 g/dL 12.0-15.0 [facility] Blood lymphocytes/100 leukoc ytesOrdered By: Dr. Paul on 09-17-2022 Lymphocytes/100 WBC (Bld) 18.3 % 19-41 [facility] Blood monocytes/100 leukocyt esOrdered By: Dr. Paul on 09-17-2022 Monocytes/100 WBC (Bld) 7.7 % 0-10 [facility] Blood platelet mean volumeOr dered By: Dr. Paul on 09-17-2022 Platelet mean volume (Bld) [Entitic vol] 10.4 fL 6.2-12.0 [facility] Determination of erythrocyte mean corpuscular volume (MCV)Ordered By: Dr. Paul on 09-17-2022 MCV (RBC) [Entitic vol] 98.0 fL 81-99 [facility] Erythrocyte sedimentation ra teOrdered By: Dr. Paul on 09-17-2022 ESR (Bld) [Velocity] 35 mm/h 0-30 [facility] Hematocrit Auto (Bld) [Volum e fraction]Ordered By: Dr. Paul on 09-17-2022 Hematocrit (Bld) [Volume fraction] 43.9 % 37-47 [facility] Ketones Test strip Ql (U)Ord ered By: Dr. Paul on 09-17-2022 Ketones Ql (U) Negative Negative [facility] Laboratory - Chemistry and C hemistry - challengeOrdered By: Dr. Paul on 09-17-2022 ALP [Catalytic activity/Vol] 94 U/L 45-117 [facility] ALT [Catalytic activity/Vol] 51 U/L 13-56 [facility] CO2 [Moles/Vol] 24.0 mmol/L 21.0-32.0 [facility] Globulin (S) [Mass/Vol] 4.7 g/dL 2.2-4.2 [facility] Urea nitrogen/Creatinine [Mass ratio] 13.5 mg/mg 10-20 [facility] Laboratory - Hematology and Cell countsOrdered By: Dr. Paul on 09-17-2022 Erythrocyte distribution width (RBC) [Entitic vol] 46.5 fL 35.1-43.9 [facility] Erythrocyte distribution width (RBC) [Ratio] 12.9 % 11.6-14.6 [facility] Immature granulocytes/100 WBC (Bld) 0.400 % 0.0-0.9 [facility] Comment on above: IG% - Immature Granu locytes (promyelocytes, myelocytes and metamyelocytes) > 1% indicates that a LEFT SHIFT is Present. MCH (RBC) [Entitic mass] 30.8 pg 27.0-32.0 [facility] Nucleated RBC/100 WBC (Bld) [Ratio] 0 % 0-5 [facility] MCHC Auto (RBC) [Mass/Vol]Or dered By: Dr. Paul on 09-17-2022 MCHC (RBC) [Mass/Vol] 31.4 g/dL 32-36 [facility] Nitrite Test strip Ql (U)Ord ered By: Dr. Paul on 09-17-2022 Nitrite Ql (U) Negative Negative [facility] No Panel InformationOrdered By: Dr. Paul on 09-17-2022 Estimated GFR (MDRD) Amer 50 mL/min >60 [facility] Comment on above: GFR Calc Estimated GFR (MDRD) Non-Af Amer 42 mL/min >60 [facility] Comment on above: Non- GFR Calc Hepatitis B Surface Antigen Non-Reactive Nonreactive [facility] Hepatitis C Antibody Non-Reactive Nonreactive [facility] Comment on above: Non Reactive: < 0.8 Equivocal: >/= 0.8 to < 1.0 Reactive: >/= 1.0The CDC recommends that a reactive/equivocal HCV antibody result be followed up by the HCV Nucleic Acid Amplificationtest (890455) Miscellaneous Test Comment MAILED SPECIMEN [facility] Platelets bldOrdered By: Dr. Paul on 09-17-2022 Platelets (Bld) [#/Vol] 318 10*3/uL 150-450 [facility] Protein Test strip Ql (U)Ord ered By: Dr. Paul on 09-17-2022 Protein Ql (U) 30 mg/dl Negative [facility] Serum hepatitis B virus surf lori antibody IgG detectionOrdered By: Dr. Paul on 09-17-2022 HBV surface IgG Ql (S) Non-Reactive [facility] Comment on above: Non Reactive: Incons istent with immunity less than <10 mIU/mL Reactive: Consistent with immunity greater than or equal to 10 mIU/mL Serum or plasma C reactive p rotein measurement (mass/volume)Ordered By: Dr. Paul on 09-17-2022 CRP [Mass/Vol] 9.98 mg/L 0.0-3.0 [facility] Comment on above: C-Reactive Protein ( CRP) provides useful information for thediagnosis, therapy and monitoring of inflammatory processesand associated diseases. For the evaluation of Relative Riskfor Cardiovascular Disease, a High Sensitivity CRP (HSCRP)should be ordered. Serum or plasma albumin floyd urement (mass/volume)Ordered By: Dr. Paul on 09-17-2022 Albumin [Mass/Vol] 3.6 g/dL 3.2-5.0 [facility] Serum or plasma albumin/glob ulin mass ratioOrdered By: Dr. Paul on 09-17-2022 Albumin/Globulin [Mass ratio] 0.8 {ratio} 0.9-2.4 [facility] Serum or plasma calcium floyd urement (mass/volume)Ordered By: Dr. Paul on 09-17-2022 Calcium [Mass/Vol] 9.8 mg/dL 8.5-10.1 [facility] Serum or plasma creatinine m easurement (mass/volume)Ordered By: Dr. Paul on 09-17-2022 Creatinine [Mass/Vol] 1.33 mg/dL 0.55-1.02 [facility] Comment on above: The validity of the calculated GFR & GFRAA in patients over 70 years has not been determined. Clinical correlation is essential. Serum or plasma urea nitroge n measurement (mass/volume)Ordered By: Dr. Paul on 09-17-2022 Urea nitrogen [Mass/Vol] 18 mg/dL 7-18 [facility] Thin prep Papanicolaou smear with manual screeningOrdered By: Dr. Paul on 09-17-2022 Thin prep Papanicolaou smear with manual screening 38 U/L 15-37 [facility] Thin prep Papanicolaou smear with manual screening 9 5-15 [facility] Urine blood detectionOrdered By: Dr. Paul on 09-17-2022 RBC Ql (U) 10 /ul Negative [facility] Urine clarityOrdered By: Dr. Paul on 09-17-2022 Clarity (U) Sl. Cloudy Clear [facility] Urine color determinationOrd ered By: Dr. Paul on 09-17-2022 Color (U) Yellow Yellow [facility] Urine creatinine measurement (mass/volume)Ordered By: Dr. Paul on 09-17-2022 Creatinine (U) [Mass/Vol] 231.00 mg/dL NO RANGE EST. [facility] Urine glucose detectionOrder ed By: Dr. Paul on 09-17-2022 Glucose Ql (U) Normal mg/dl Normal [facility] Urine leukocyte esterase det ection by dipstickOrdered By: Dr. Paul on 09-17-2022 Leukocyte esterase Test strip Ql (U) 500 /ul Negative [facility] Urine pHOrdered By: Dr. Norm martinez on 09-17-2022 pH (U) 5.0 [pH] 5.0 - 8.0 [facility] Urine protein measurement (m ass/volume)Ordered By: Dr. Paul on 09-17-2022 Protein (U) [Mass/Vol] 30.1 mg/dL 0.0-11.8 [facility] Urine protein/creatinine mas s ratioOrdered By: Dr. Paul on 09-17-2022 Protein/Creatinine (U) [Mass ratio] 130 mg/g CRE 0-200 [facility] Urine specific gravity measu rementOrdered By: Dr. Paul on 09-17-2022 Specific gravity (U) [Rel density] 1.020 1.002-1.030 [facility] Urobilinogen Auto test strip Ql (U)Ordered By: Dr. Paul on 09-17-2022 Urobilinogen Ql (U) 1 mg/dl Normal [facility] Pathology studyOrdered By: Ramses Michelle on 03-12-2022 Citation Nelson (Reference lab test) b5hucQKoEJCun4dxWPUmoS FuZzEwMzNcZnRuYmpcdWMx IQsmudNkLMqpb2GgH5RtSr AwMFxhbnNpXGRlZmxhbmcx JTIuWML2crNfYFZuMNenVW LdKAdeHa8zuFVepKrnFgXd EVVyv3iegjKEAWhsZUVVPX m1e7bjCTNzXuL9gNQvZXns B9ezgmXvnZWaE2Yvh7JeVM y6tO89ZOZffE5apPKuDHrr hjKeDmQ5GKqkVWWjGyB9FJ JaeYPdNSKeW9pcPSXxNEcf mgBmesA7VMJpgSLiXYU0DV BpAORcJ3IaRT7lVBIoqFHx FDg4o7hxwJffXLFkZIR3a4 qmLInsdnMaJX5acd6bzZm9 k6vtrzNsWSAdJNDpfKMMVR WlV6LruVduZb7hgZb5wVbk EakjNVS0Psn2ZU0gpc46cu d4yDmlDVCnensgWoL8NMdy LPLiraapQLz8QLyfZAXhfR F4OMLbpOOnZ4SfUBXkTR1b nlc0XPH0JFufQGAxHwI6PI ZiwFBcMUOisEeqWXnnh322 VTO0IcEzUK7qZ2Gbi0Q3bE 9maXRcZGVmdGFiNzIwXGZv qu5jfNDzDIbed9TxDLO3by J9cXYtkLImHRVlVX02Umyq q1YnUphjTLT2NZYcrqSqc1 Mpw3orNkLuelFmX7zrY1Mu ZHJoZWFkXHBnYnJkcmZvb3 Joh5XmgIJggHc6v1tdTZQf QHPtxQuuw0gzWPA8SCVwG3 N3hUVkz6zsHLxrPHQfxVV8 meD0SXDmaUGyW6WutQ8vXX LwWI2rfgm6r1nvFPS2WPpk ENPyRbY3klQ8WJCofSSbTS IwfNxhTEneo695XMW7ZbTs DECxh0FcE0EwtWvtE95unE yiC23qSWYvzPwuxC2qiDic dI3wJiWlJuTrQIvswKybkF EncmbaDOczwqS0KDxwauyh HWWzZLdlH9etPeYtMRJkwD mnKNzxc7EuMHRxKADrPnki gfB8RJboFS41RTficYYcm6 rwg7ItV3nucBcqfMW8OQ4i LIEeVMLuUFjmv5KbwK0loZ MkUIVbkxN5xFKroI88RBJy boF2UKQbs25sh8EidLildq GbCJWiZTesdtCqEYHfk4Yi APWtVZPrWW09aoCrH5EquQ GsLQTgyuRbWCplfM5gk3d6 ABwoLb9zPOqxu8EhaYOepK MnjMT2QIQhr4CbAzVxmrDv rXZfsdDiYU4qQYZwsRAtut VhENK3RBRxNFZXViPqAXXo f9JbSS6bZRKorSyjJSArlE 5vo1SmLFHqz54aPRXuFZGV REEgaGFzIGRldGVybWluZW QgdGhhdCBzdWNoIGNsZWFy EM1dOQUbetUgkLPse0ZmuP ObdvTdx7MicaBeSCCoIBH2 EkRJsDCtDQV9FPC8diOpvs FaqTNvERQdx7XgO2gczdfz WSlhzYLzdJ7sMZCwDD3sYL Ecf2DvGMTzf0NbQdSfcoXk ZHGmAMScIEHrzI71EZU1bD crwCyeocGqMX2xNHCtybPu OOQaAGNjkX4uAWjvvnZiRO RwthH6f3B8QLvjVAAkgoBf RfleTBQ3qlXfDNHnv3ZeJS kcL0mnT43njPwuaSv2vXJ6 AJA8rA9uJZOzNVNfIDZsXA BDbGluaWNhbCBMYWJvcmF0 m2M7XYprwMUpbtXvDH96KF GdYE0mwYPnhNWvp0EwRHo9 HD1qESyiWBNaihFsp2yrCP Qvu4xfJQPnlv7aeiqubLKf yqEnS1Vvcgl9uC6ioOWzWT Bvfe21UBW8UyIlLV7alJhm MZZdUF5xQAUxB0dynI1mpa h9QtPfb4wstCIqFTMvcGCs KkBaYEFuXUApq4evSVUrpY FuZzEwMzNcZnRuYmpcdWMx KBTlDlRxo1kwn788gTGde6 ugXRSkOeY2sPYeIBUrE11m JFYBU555IOInIVaaa9ejs2 AgEXJmnCMfr5Q2GFMZINpe NWXUREd6rBagP04jd5F1Nx enO5wuEBRkYDDcT6WfZA7j PAPyXot7ZQY3VMM0TSUvDE C0ADhuPAPtKACzFcz3DBG0 IDtccmVkMTQzXGdyZWVuMT LqZFAvkNKmQGOjN7jrCQRy YHnpDPHsBDmaxNAeSCB9uI fqy8W8hAXvdCCrpOhkCqTq XdBoYtULd4TuQJg3uPwbY0 ByWENbVfN7kLWyYIPrYSbk ELSqSJMhdhN4qC32EAfyzn P5fTSgc4Uah10jz506sG7i kOAaNFN8FHRaOWAvzOPvQW VvWFO0NSZbmSJqF7biRYXq EL3fojtyNQpfBAapHJTliY H7BYMyqHZvT8FtJVFpYSmz PEHmnsd5LjPeJr1kvURrjN flUXpfq3oty0pudUVjKnl5 YAJsXvPwQvztYBulg6Onc3 emTBFmlm9dTKM2tHDokBck t1V7tNDpTLXhoJNkeiRiLX PpQuJ6APdwAI3wat26EBCt XVY4az1uiGKyoVlwzgFcdC JrTUhzR3QcQXGil065DHKd W4CwAEClg5R8hwYlGhDqMC XzuCE7gwX0UGJxRIj6tCEi vzG1bfXbfIKoE1nqzB0rOI UkIQ6wnfpix9rcVZkbVWaf KAPqyFD0nrV7OFBrfJPfD6 SmkM9qNCVrHAcyKRErcmg1 UsIzTq4qgZPylNlhNDrrFc twYWdlXHBnbmNvbnRccGdu ZGVjXHBsYWluXHBsYWluXG XwERQoPsYeeAldeZwkoP7c QeNmHiYzUVbrNG2jEZFzL6 eocOBwDHTzSJYmB1bjNfXx wQ5vfQoxJFbqLkUzGmJbPA rgMIYlGYP5SEQrhwuhKDcr Q63ykO6zCZ25RNsibnVlZK Cft7CbFQHrFCGcPRftKTCi zjTgWJwqwO0fh9d2BVweGa 4wTEKuqhzoBUR1AuImNK70 YmxldHJlZSBBdmUsIENvbH VtYnVzLCBPaGlvIDQzMjI5 SgHLeNDpy8Ohc0RgBnRtuN HfuS4seYfpjvO8ZXBypYUt Za9ctETuNzmobTCvljozGX kapzT8JIojegnbUNDaAUrm L7qfVuVfVIIynSozOZcns4 LwDDEpZCFeR5ptdaB0AWif hZWyVOJavv26aY== [employer] Work Phone: Microscopic description Nelson (Endomyocardium) f0qtgXFxCWCqeAZYEEXrMX PlOO5paEodeCq6tTsyUKUw avJ6aNVwZNnvn9nbGMN2p5 erfgXQGkmiLYMmLA3cFJku VSNiIR1oJtOfOICmBsJmHG BhcGVydzEyMjQwXHBhcGVy sTW4KYZpJS7olaqgMSmnQX qaWXEzntW4ZFQumRUcQ8Vs JUPdNZ9vtkejMXP3HFAAYu ekAh8bzJGrhTQGUvxnYxYr ZmNoYXJzZXQwXGZuaWwgQX SaSEi4bY5Ov0pmHxgyX2wa kpEabJLmVg9exJYMCMweGU WASQs8gA1NZOXxP9UfVW2M c6wlUCSnmHCpLZS8OVkzr3 vjLNhrDCX3MIHxXCTnCFBw XD3XQzVtUYGrZKXhHWf9Rf I3PTp9NLMMVZAaKtC7ESGj MXt2LDk5JEpqncahQFq2HS VaWApvdLApOG8asJdfNaxm wFnsp4GsyUBzPCRsOKnmkY QgNTEwMDIgXFxkYiBPVlIg CpVtGjAePkO0OgZsKKq5HT vhM4IZEVSxWSGrBVJrVYs9 ViO0HOa5SEHGKa5kWdVsAm X6ELQsWdV2VAXzWDAeLTDb MiBcXHNzIDMgXFxmbCBcXG 4iuVtxWIDmSH5JVKIrCSkq BEWcZCUjUaAgCV4fTWUrA3 GkOX28TEW1pD1sPKBLOYD8 bPemV8MfASjbbV1eiWHlGR Wyx8zsMDN5CIg8ZDEvgoYT RdxfSKNoVK8SCLFxLOeoWH KhXHHgKuYvqVvcwI8oePWl J9aaEoClHgbmgMsvOoWhnY RvYzEgDQpcbHRycGFyXGxp bjBccmluMCANClxmMVxmcz KaYAFcU2SeozDsENxhYOJt ii8raGjyGQcvXwLpYEGry4 g8qZQ3xBUpvFJ4cYLpxBlh QY4izRGlFS1bWTNiBPRjkG Tyv9k9uDLahUPsKOCvLTXg XRSjON0fVB4aCHaaSF1nGB mjAE9lYTUsWHIbIRhyIG69 NI0lVVDzz8KeKeyzSJVyCx RoyKhby6BtHlPiSVfmVMGw ZZZfwIKfZEcbUOD0Zf2luO RlZCBlbnRpcmVseSBpbiBi gQ6rhyHTRIMzcaYdxAL5YF 9pmLSxeBN9nGAiZTSim5Na x8MeplodJLHnviGJMnhgNP VoHCCfeKIZq8LfMPTXHprB TikRBallPVCoPRCwH8kiYS CeRCtkTCNoX61yu0NCr9Ih t0uojVcmb7FgsQLjZO0pzF JqQS4Dm2ojWFEoaMZzIJZ6 WLoli1blFNbrGVY5NYNhGm JvCUCwGN1KPcFtMVRhTLCe NKl8OhE0MOr6ZERRJqPqKk TuEFI0QZV3ZOioWRy8XFd5 KWlYJrCsSlQmJHxaIzM8LL H8PVP6LDaevHJkNEbdo0Ze ZcFbJDZrCKtqurI7JQNcVF M6VSPmlRDKi0VeEHLpKJrm ZjJcZnMyMlxmMVxmczIwIE IuIExhcmdlIEludGVzdGlu NFxdJupcdRRlEVDmSE6sfI 4dSNFwaC7aHKYYQN6vl20n ssjueNMoW86ym28dUsr6KO XxszTVFuvdGWHyHX5ZXEQi PNxvBFl4zeBtGWBfHDKaZi BcZjJcZnMyMlxlcGljTmVz dERvYzEgDQpcbHRycGFyXG xpbjBccmluMFxzYjMwXGVw aEOSv6ZyCLVZFocmLPenee OeTVJuL3CrohMnGKxnGYDm bj9vbUnbLDowHiHlNPLwr9 v3qIT5xDCqcYR7yPSvsNjj LQ6oeGPvFL4sVHWki8Ktbw XonhxpG75xg10xVYBqJME4 WOWrBBmlIO22xdYmHvH1UL 6guVbuxjWow5W5CEWes3H4 PEKwGX4klN4nEQKqk25uqJ KkopQ3hBWoFDWmSYR7mtLe GxJoD77yaR0tQ8VvYESyg9 OpYSfpYC6lfQ3qEoZhHDhl TCMxNGIerJBkXXxdKGM9Me 1pdHRlZCBlbnRpcmVseSBp qhOxzW8ifjEBSV5vlRSvPN 0KXHNiMFxlcGljWHNiMFxz CSHtFTMvlQVLh9VgHALSOo xJVpoAPardGBXgUZMfH4qh KXKrGSijVNLzE12py9LDd5 Iic1qsyXvpm5PgrENwRS6n mGZmHY1Ao1boBBQiyZXwVH S3TDcri8llAGnuIBX6COIx RcSpKWByHZ8WMaIiTWIqEA BrJKr2HjK0JYz2FAAROlLk OlNeZSZ2NHD4CDSgSMq2EN w5BOdHFkMuLhDwSOs2AXX4 CTD6YDW7OFwkeKKcZCppp1 IuHtEbDDYzPJqtprR7PDHg YIS9VENbrZIRp1DcJIEhYY pcZjJcZnMyMlxmMVxmczIw IEMuIExhcmdlIEludGVzdG kcATdiMWXczqY8UDMbJDWN s4uajpnmCJNpgwF2PJJrKZ Wuw6hiuvTzj6z4vRMdOJPa xDCel26ioiXgCAzroIFhXB 3HLGUrbtMeKWtgiYcghA5w qCSfP3tbArNrEcAaPTxnAi ctnpXwPALunKJEOHJ3LW9e MSANClxsdHJwYXJcbGluMF bndA2bGTVjFaBjHYThG3so KnLpNQ4AICYrAUPoNiUbZm KpCSk5LAFfiK4eUv6vgCMj uM1aqDZdLBciVWV9oQWhHZ AuSRTwURKkYJ50X8WtsbWt VMEumrNpMgXfUH9uafRrz2 QbK06oa84nACYnTKLeXAHm BNyfDP66fxSvPhW9UR8goK wsyoQhk5D0UNJgf2U9BWVw GL3svP4cWWDfx02zOL8dYQ RvIDAuMyBjbSBpbiBncmVh vWYumMEdiU6pwfAgf07tOF TPyTMzh4FqF8bmPD4kdPWf c4JbpUw8sTHgDCVioJklQC n5THzvVUArg7JzFQGsMoxf MQFtAMoxx2YaQSQwgVPEl8 CaHVSrDvNySILeJ2cmYYDr MS7TLWSDHJ1EMTGjKFcpeR ljWHNhMCANClxlcGljTmVz hIEhHsU0ZAGyvREcKHZ2GP 5bdOmcOHIgOWw8SHukJJXn V3MkF2CoTBawBmWiKRjcUY XoFUJcWShqRIFqT2XBPAVp OKI4HKSvYhTtVVi0EXl4WT 3TStTgCCPfSqG7SoQeIJDu VFk2JWhcCI7YTBVpBnS5WS Z3VkIhXBNhAPiaPEu0PKUr XFxzcyAzIFxcZmwgXFxuY3 2zh6KwZJEhETFcE0wdAfHs NSANClxmMlxmczIyXGYxXG XkUvYvJS2pVLRqG2HsCY27 NMD2uI4rJHIRERY6G8Qqn9 KoloLihhupK91yn53yMMQf fwJobWAmRKF7EVDciK5xFS J3JolySEBeCLvgeOPsQYJF ClxwbGFpblxsdHJjaFxmMV xmczIwXGYyXGZzMjJcZXBp T02mh9LQv1OuGT4DDAq4dv SdodcubC9xKTFiwrUmd2Jb MFxlcGljWHNiMzAgDQpcZj FcZnMyMCBSZWNlaXZlZCBp trPob6JyYLnnrrViHZFcjY VkIHdpdGggdGhlIHBhdGll etDmufZxXZ8cHRWnCFOrEG IdA8ThSLirSyUsh3tkkaEg OGGnVJEqDfZiD34dliJbLQ 9sXGQrbh4iaG3dUMVgAoWj nLwdi8SkEPVdL8yoYU0kQE YoFJwkXJeqNLB7MBR0TXBb yASlf3oibv7aDDUuACNgbQ QhtO6lthSyosNscUTutKM3 YEAhSO50aEVshNepzO6dKy bnD2bzGOZeNJTrpaAWDlyx YdUxVCGlR1szUsNvx4EbVU xlcGljWHNhMzAgDQooQUIp TFdog0WdVPMfpTGWq2JjAO 5LCLCgzQQPRYW4QK2zVKlt WEAlR5CfL6GqcvY2HINgge IPHywcLeigqXfhj2HdsMQr XHNnIFxcaWQgNTEwMDIgXF xkYiBPVlIgIiAxMzUxMjA3 ZhYsLJi0YVnjU5WOJEGlGP BhPTQfSkIdEbL4GYo5IAXE Hh6lNjApIkL4PXR1IGZ1UO ExOCBcXHQgMiBcXHNzIDMg FWmckDNkFR0kuVjtDhKwFQ rsvNbhTFEbUNV0JS8MQZDx XGZzMjJcZjFcZnMyMCBFLi QMKVXpXQAHaxCjc0LzdaAu EVQcF0P7uTguLnMhMS8wRC LlA9OliJZcwTwtkETzBC6T DRHpgpCdLVrrqSghgC4beS ByL3kyNcMjKmDoACvePbnq nuDxXNFjwZCOGVN9TC0wJR ANClxsdHJwYXJcbGluMFxy cR6cZRYhNoIfVIDlU1wtOw PvSX1KANWgGCSrHjSfRhJf XAd4OLHxgU4hQh5ovSAlvU 5ujRJuGZopIHR1nPUaNKGg SBXqPAFuMW64L0TfvoPcJS IgusJsVvAaZ1Z9lIHdXCKb EVLmGuUkB65yhsRiHX2xSK Jdpa8ldD7vHHXpKjZkmLqx f5ZpLLVklrjcmwyaQiAhuY PcUgPppF6oTW60TBLeAHmn TGqgQUT3JHE9KVUrxSTiq9 hcbt0xQRPqPEIpkZIwaE4a hbYyalYrxUUwbGU2TWHrFZ 13rZGrbFjlkK5lOfbnQ3ru RTEuXHBhciANClxzYjBcZX RrG2jvJnZia9MtKWjeqYyf WHNhMzAgDQooQUIpDQpcc2 NaXVIijPDKc5UvPV0BYXMn iZGASIT4UP6eJNxzCUKzR2 JtM5UumfQ7b7qvvPpkf7Pc gLUlOK0acHKpHL4HYZSxLX ZzMjIgDQp9 [employer] Work Phone: Pathology report final diagnosis Narrative m7opkRDdUHFlxFPmFPCbSi lfebWsTQZssYYsC7Igsmru JXjcEK4fTK2kqPyjrHAslZ BhLTNaIiHww1pvf422zRYx u6cnUQMBryszcBd7lNqzI7 7fe5Z4OmucR4zeQTTnSJim IDMqFVthgUVyWBg1ICYizR VydzEyMjQwXHBhcGVyaDE1 JQQbKW4pneqcFQpqEEonWU ZaabW4EVHstVHdF5FaZPXr AE7hfbgyLJF6YXhgJIMuPH W2OaFdQDWnk8Djqof2IuAs sLl2m4goGXDtPDKqxQkyy1 knQRT7QUUjkMWuF4wvwL0o JQJgGQ7qnjyth8mkYMttPN naXYHhcAT0bnB0WOVsfMKc S3MquD1zGXCcWOSpvgGueV fbSbP4YOyqpYVpiznwVnGe VD3vCZEsX8KwAMVjvMfkJj ZRkXNvmECjgY9yrHTnsVKo WM67IAFvfwHlvGNgnp6suG MuIFxwYXJccGFyIEIuICBS NI6af15mVADeSX8ziT6ePF AzfN2hZCApu0VjhBZjWyJV f3tcwgthIB71J25tPHBbvE 93gA0bHH9lIKSxjXhvqZ3n zGPuLKdbQ78iy5mwCoSbBV tmrfKasCTrnc9sO82fqKKr cyBvciBkeXNwbGFzaWEgc2 Udfp8yvUIxOTUuijknNOCv VAArOFPCltTwe4RpbyXzCZ QopQ1yIDYxoYfwGiRcrtOw dGVkIHBvbHlwLlxwYXIgU2 OsFL0zdGC9GYYozkufTVDs Cl72GJvhKBdbVJoko7PodM 8gvCCte5ArsXznjeHzp4yd dyBhIHNlcnJhdGVkIHBvbH szMzDWqsJ4gyYogZb1b2Ad xEIoQOBcJVMlgIT7OVTwJG 4eACJkCORcWVudZF99vNKh LEOnyC3yZ28xEcebeYX1lK AhWLyoV98iz5axPV8gDNQh f5Hfz9xwIVRpXLFhTWEkQR UsJSTge57pG2XsmJfuRxME v1jjmxCgMCS7vGOetB7ggI YzuXwmPMlaBHm8TtBroqxy oWEsv0jxJHAduE7gBVFce8 8sx170yKLzPyR2h0DhjHrv ACDgNSygq6YgadEyBiLbHK Psg2MfdEWys9VqfkI0JDXf NGNwoz4uUE0wh6s7mC4fI1 azuhpoCGngDP9bSWZiRN0p X05jxHErV30vgxIoDNEhd2 3bqLFgcbWpu79uKA6nAOLz APSlfjbdZYUuJD8aEPWbao GfwEQaWHC5BJVdiD7yPFJv s5NgqJFwRaYWh7skepjeBK 27O52zNGIdxE12pJ6bZV3t FYJquCentU7byAKsBTmkM3 5eb0ocDqAwDXxwuhHzrQNl yb9hX10iwLXtgqCcnfYbuF LbtBDakSOki0Jfpu3zsNRh NMOhtwVRQvYsZeIaQW9iLH JtS6KhtAHvmB7cn9qqgbao O35gk53aKzWbzHQli9Pjf5 wil8vlZrJbuuAgMVUbo6wi H7jbAVQtUXrcz7Hofu5mRS KdJUQdFLfnCA6hWNJnnPz5 dFUeu2OcVVyifUael1rsRE JfHP5cTTLyww2= [employer] Work Phone: [employer] Phone: COLONOSCOPYon 03-10-2022 Colonoscopy [facility] Patient Name: Sotero Bethea Procedure Date: 03/10/2022 10:50 AM Date of : 1950 Age: 71 Gender: Female Procedure: Colonoscopy Indications: Follow-up of colitis Patient Profile: This is a 71 year old female here for reassessment of colitis, on mesalamine. Refer to note in patient chart for documentation of history and physical. Last Colonoscopy: 1 year ago. Providers: SCOTT PEARSON DO, SHAZIA APARICIO MD Referring MD: Medicines: Deep sedation was administered, Sedation Administered by an Anesthesia Professional Moderate Sedation: Sedation provided by anesthesia provider Complications: No immediate complications. Procedure: Pre-Anesthesia Assessment: - Prior to the procedure, a History and Physical was performed, and patient medications and allergies were reviewed. The patient is competent. The risks and benefits of the procedure and the sedation options and risks were discussed with the patient. All questions were answered and informed consent was obtained. Patient identification and proposed procedure were verified by the physician, the nurse and the anesthesiologist in the endoscopy suite. Mental Status Examination: alert and oriented. Airway Examination: normal oropharyngeal airway and neck mobility. Respiratory Examination: clear to auscultation. CV Examination: normal. Prophylactic Antibiotics: The patient does not require prophylactic antibiotics. Prior Anticoagulants: The patient has taken no previous anticoagulant or antiplatelet agents. ASA Grade Assessment: III - A patient with severe systemic disease. After reviewing the risks and benefits, the patient was deemed in satisfactory condition to undergo the procedure. The anesthesia plan was to use monitored anesthesia care (MAC). Immediately prior to administration of medications, the patient was re-assessed for adequacy to receive sedatives. The heart rate, respiratory rate, oxygen saturations, blood pressure, adequacy of pulmonary ventilation, and response to care were monitored throughout the procedure. The physical status of the patient was re-assessed after the procedure. - The anesthesia plan was to use deep sedation/analgesia. After I obtained informed consent, the scope was passed under direct vision. Throughout the procedure, the patient's blood pressure, pulse, and oxygen saturations were monitored continuously. The Colonoscope was introduced through the anus and advanced to the cecum, identified by appendiceal orifice and ileocecal valve. The colonoscopy was performed without difficulty. The patient tolerated the procedure well. The quality of the bowel preparation was fair. The ileocecal valve, appendiceal orifice, and rectum were photographed. Findings: The perianal and digital rectal examinations were normal. A 2 mm polyp was found in the cecum. The polyp was sessile. The polyp was removed with a jumbo cold forceps. Resection and retrieval were complete. A 4 mm polyp was found in the transverse colon. The polyp was sessile. The polyp was removed with a cold snare. Resection and retrieval were complete. A moderate amount of semi-solid stool was found in the rectum, in the sigmoid colon, in the descending colon, in the ascending colon and in the cecum, interfering with visualization. Internal hemorrhoids were found during retroflexion. The hemorrhoids were Grade I (internal hemorrhoids that do not prolapse). The exam was otherwise without abnormality. No evident mucosal inflammation or ulceration. Procedure Code(s): --- Professional --- 41555, Colonoscopy, flexible; with removal of tumor(s), polyp(s), or other lesion(s) by snare technique 59404, 59, Colonoscopy, flexible; with biopsy, single or multiple Diagnosis Code(s): --- Professional --- K64.0, First degree hemorrhoids K63.5, Polyp of colon K52.9, Noninfective gastroenteritis and colitis, unspecified CPT copyright 2020 [employer]. All rights reserved. The codes documented in this report are preliminary and upon adjunct phlebotomy instructor review may be revised to meet current compliance requirements. DO SCOTT Catalan DO 03/10/2022 11:37:40 AM This report has been signed electronically. Scope Withdrawal Time 0 hours 20 minutes 11 seconds Estimated Blood Loss: Estimated blood loss was minimal. Number of Addenda: 0 Note Initiated On: 03/10/2022 10:50 AM Total Procedure Duration Time 0 hours 27 minutes 24 seconds [address] [place] [address] IMPRESSION: - Preparation of the colon was fair. - One 2 mm polyp in the cecum, removed with a jumbo cold forceps. Resected and retrieved. - One 4 mm polyp in the transverse colon, removed with a cold snare. Resected and retrieved. - Stool in the rectum, in the sigmoid colon, in the descendin (more content not included)... Normal [facility] COLONOSCOPY Anest[facility] - MAC [facility] - Preparation of the colon was fair. - One 2 mm polyp in the cecum, removed with a jumbo cold forceps. Resected and retrieved. - One 4 mm polyp in the transverse colon, removed with a cold snare. Resected and retrieved. - Stool in the rectum, in the sigmoid colon, in the descending colon, in the ascending colon and in the cecum. - Internal hemorrhoids. - The examination was otherwise normal. - Several biopsies were obtained in the rectum, in the sigmoid colon, in the descending colon, in the ascending colon and in the cecum. Recommendation: - Patient has a contact number available for emergencies. The signs and symptoms of potential delayed complications were discussed with the patient. Return to normal activities tomorrow. Written discharge instructions were provided to the patient. - Resume previous diet. - Continue present medications. - Await pathology results. - Repeat colonoscopy in 1 year because the bowel preparation was suboptimal. - Return to referring physician as previously scheduled. - Discharge patient to home. [facility] GI Patient Name: Sotero Bethea Procedure Date: 03/10/2022 10:50 AM Date of : 1950 Age: 71 Gender: Female Procedure: Colonoscopy Indications: Follow-up of colitis Patient Profile: This is a 71 year old female here for reassessment of colitis, on mesalamine. Refer to note in patient chart for documentation of history and physical. Last Colonoscopy: 1 year ago. Providers: SCOTT PEARSON DO, SHAZIA APARICIO MD Referring MD: Medicines: Deep sedation was administered, Sedation Administered by an Anesthesia Professional Moderate Sedation: Sedation provided by anesthesia provider Complications: No immediate complications. Procedure: Pre-Anesthesia Assessment: - Prior to the procedure, a History and Physical was performed, and patient medications and allergies were reviewed. The patient is competent. The risks and benefits of the procedure and the sedation options and risks were discussed with the patient. All questions were answered and informed consent was obtained. Patient identification and proposed procedure were verified by the physician, the nurse and the anesthesiologist in the endoscopy suite. Mental Status Examination: alert and oriented. Airway Examination: normal oropharyngeal airway and neck mobility. Respiratory Examination: clear to auscultation. CV Examination: normal. Prophylactic Antibiotics: The patient does not require prophylactic antibiotics. Prior Anticoagulants: The patient has taken no previous anticoagulant or antiplatelet agents. ASA Grade Assessment: III - A patient with severe systemic disease. After reviewing the risks and benefits, the patient was deemed in satisfactory condition to undergo the procedure. The anesthesia plan was to use monitored anesthesia care (MAC). Immediately prior to administration of medications, the patient was re-assessed for adequacy to receive sedatives. The heart rate, respiratory rate, oxygen saturations, blood pressure, adequacy of pulmonary ventilation, and response to care were monitored throughout the procedure. The physical status of the patient was re-assessed after the procedure. - The anesthesia plan was to use deep sedation/analgesia. After I obtained informed consent, the scope was passed under direct vision. Throughout the procedure, the patient's blood pressure, pulse, and oxygen saturations were monitored continuously. The Colonoscope was introduced through the anus and advanced to the cecum, identified by appendiceal orifice and ileocecal valve. The colonoscopy was performed without difficulty. The patient tolerated the procedure well. The quality of the bowel preparation was fair. The ileocecal valve, appendiceal orifice, and rectum were photographed. Findings: The perianal and digital rectal examinations were normal. A 2 mm polyp was found in the cecum. The polyp was sessile. The polyp was removed with a jumbo cold forceps. Resection and retrieval were complete. A 4 mm polyp was found in the transverse colon. The polyp was sessile. The polyp was removed with a cold snare. Resection and retrieval were complete. A moderate amount of semi-solid stool w (more content not included)... [facility] Scott Pearson DO - 03/10/2022 [facility] GI Patient Name: Sotero Bethea Procedure Date: 03/10/2022 10:50 AM Date of : 1950 Age: 71 Gender: Female Procedure: Colonoscopy Indications: Follow-up of colitis Patient Profile: This is a 71 year old female here for reassessment of colitis, on mesalamine. Refer to note in patient chart for documentation of history and physical. Last Colonoscopy: 1 year ago. Providers: SCOTT PEARSON DO, SHAZIA APARICIO MD Referring MD: Medicines: Deep sedation was administered, Sedation Administered by an Anesthesia Professional Moderate Sedation: Sedation provided by anesthesia provider Complications: No immediate complications. Procedure: Pre-Anesthesia Assessment: - Prior to the procedure, a History and Physical was performed, and patient medications and allergies were reviewed. The patient is competent. The risks and benefits of the procedure and the sedation options and risks were discussed with the patient. All questions were answered and informed consent was obtained. Patient identification and proposed procedure were verified by the physician, the nurse and the anesthesiologist in the endoscopy suite. Mental Status Examination: alert and oriented. Airway Examination: normal oropharyngeal airway and neck mobility. Respiratory Examination: clear to auscultation. CV Examination: normal. Prophylactic Antibiotics: The patient does not require prophylactic antibiotics. Prior Anticoagulants: The patient has taken no previous anticoagulant or antiplatelet agents. ASA Grade Assessment: III - A patient with severe systemic disease. After reviewing the risks and benefits, the patient was deemed in satisfactory condition to undergo the procedure. The anesthesia plan was to use monitored anesthesia care (MAC). Immediately prior to administration of medications, the patient was re-assessed for adequacy to receive sedatives. The heart rate, respiratory rate, oxygen saturations, blood pressure, adequacy of pulmonary ventilation, and response to care were monitored throughout the procedure. The physical status of the patient was re-assessed after the procedure. - The anesthesia plan was to use deep sedation/analgesia. After I obtained informed consent, the scope was passed under direct vision. Throughout the procedure, the patient's blood pressure, pulse, and oxygen saturations were monitored continuously. The Colonoscope was introduced through the anus and advanced to the cecum, identified by appendiceal orifice and ileocecal valve. The colonoscopy was performed without difficulty. The patient tolerated the procedure well. The quality of the bowel preparation was fair. The ileocecal valve, appendiceal orifice, and rectum were photographed. Findings: The perianal and digital rectal examinations were normal. A 2 mm polyp was found in the cecum. The polyp was sessile. The polyp was removed with a jumbo cold forceps. Resection and retrieval were complete. A 4 mm polyp was found in the transverse colon. The polyp was sessile. The polyp was removed with a cold snare. Resection and retrieval were complete. A moderate amount of semi-solid stool was found in the rectum, in the sigmoid colon, in the descending colon, in the ascending colon and in the cecum, interfering with visualization. Internal hemorrhoids were found during retroflexion. The hemorrhoids were Grade I (internal hemorrhoids that do not prolapse). Several biopsies were obtained with cold forceps for histology randomly in the rectum, in the sigmoid colon, in the descending colon, in the ascending colon and in the cecum. The exam was otherwise without abnormality. No evident mucosal inflammation or ulceration. Procedure Code(s): --- Professional --- 98802, Colonoscopy, flexible; with removal of tumor(s), polyp(s), or other lesion(s) by snare technique 13702, 59, Colonoscopy, flexible; with biopsy, single or multiple Diagnosis Code(s): --- Professional --- K64.0, First degree hemorrhoids K63.5, Polyp of colon K52.9, Noninfective gastroenteritis and colitis, unspecified CPT copyright 2020 [employer]. All rights reserved. The codes documented in this report are preliminary and upon adjunct phlebotomy instructor review may be revised to meet current compliance requirements. DO SCOTT Catalan DO 03/10/2022 11:37:40 AM This report has been signed electronically. Scope Withdrawal Time 0 hours 20 minutes 11 seconds Estimated Blood Loss: Estimated blood loss was minimal. Number of Addenda: 0 Note Initiated On: 03/10/2022 10:50 AM Total Procedure Duration Time 0 hours 27 minutes [address] seconds [address] [place] [address] IMPRESSION: - Preparation (more content not included)... [facility] Radiology Study observation (narrative) [facility] Pathology studyon 03-10-2022 Pathology study A. Cecal polyp: Tiss ue insufficient for diagnosis. B. Random ascending colon biopsies: Colonic mucosa showing no pathologic diagnosis. There is no colitis or dysplasia seen. C. Transverse colon polyp:Serrated polyp. See note: Note: The histologic sections show a serrated polyp. No unequivocal deep crypt changes are identified to confirm the diagnosis of a sessile serrated adenoma/polyp. However, the polyp?s right-sided location would favor the diagnosis of a sessile serrated adenoma/polyp. Clinical and endoscopic correlation is recommended. D. Random left colon biopsies: Colonic mucosa showing no pathologic diagnosis. There is no colitis or dysplasia seen. E. Random rectal biopsies: Colonic mucosa showing no pathologic diagnosis. There is no colitis or dysplasia seen. A. Large Intestine, Cecum, Cecal polyp ( cold bx ): Received in formalin labeled with the patient's name and "cecal polyp" is a less than 0.1 x 0.1 x 0.1 cm fragment of possible soft tissue. The specimen is submitted entirely in block A1 and may not survive processing. (AB) B. Large Intestine, Right/Ascending Colon, Random right colon bx: Received in formalin labeled with the patient's name and "ascending colon" are 5 fragments of montgomery-pink soft tissue ranging from less than 0.1 to 0.2 cm in greatest dimension. The specimen is submitted entirely in block B1. (AB) C. Large Intestine, Transverse Colon, Transverse colon polyp ( cold snare ): Received in formalin labeled with the patient's name and "transverse colon" are 3 fragments of montgomery-pink soft tissue ranging from 0.2 to 0.3 cm in greatest dimension. The specimen is submitted entirely in block C1. (AB) D. Large Intestine, Left/Descending Colon, Random left colon bx: Received in formalin labeled with the patient's name and "descending colon" are 3 fragments of montgomery-pink soft tissue each 0.2 cm in greatest dimension. The specimen is submitted entirely in block D1. (AB) E. Large Intestine, Rectum, Random rectal bx: Received in formalin labeled with the patient's name and "rectum" are 2 fragments of montgomery-pink soft tissue ranging from 0.2 to 0.4 cm in greatest dimension. The specimen is submitted entirely in block E1. (AB) Any immunohistochemistry or special stain used in the interpretation of this case was performed at [facility]. These tests have not been cleared or approved by the U.S. Food and Drug Administration. The FDA has determined that such clearance or approval is not necessary. These tests are used for clinical purposes and should not be regarded as investigational or for research. This laboratory is certified to perform high complexity testing under the Clinical Laboratory Improvement Amendments of 1998. All controls show appropriate reactivity. The technical component was performed at [facility], [address] [place] [address]. Microscopic examination was performed. Normal [facility] Comment on above: Performed By: #### 1 [id number] #### [facility] [address] [place] [address] [facility] ([facility] [address] [place] [id number] MR Brain With And Without Co [email or web address] 06-14-2018 1. No significant change of a 2.5 cm nonenhancing mass within the medial left temporal lobe compared to the prior studies dating back to 2013, compatible with a low grade glioma. 2. No significant change of mild supratentorial and infratentorial white matter signal abnormalities, compatible with reported multiple sclerosis. No abnormal enhancement or restricted diffusion to suggest active demyelination. There are mild periventricular black holes with mild cerebral atrophy. [facility] Workstation ID: [id number] [facility] EXAMINATION: MR BRAIN WITH AND WITHOUT CONTRAST HISTORY: ORDERING SYSTEM PROVIDED HISTORY: f/u MS, please compare, TECHNOLOGIST PROVIDED HISTORY: Reason for exam: MS Illness/Other Encounter Type: Subsequent/Follow-up Additional signs and symptoms: . ORDERING SYSTEM PROVIDED DIAGNOSIS CODES: G35 Multiple sclerosis (HCC) COMPARISON: Brain MRI 08/11/2017, brain MRI 07/30/2013. TECHNIQUE: Multiplanar, multisequence MR imaging of the head was performed prior to and following the administration of intravenous contrast on a 3 Alanna scanner per MS protocol. CONTRAST: GADOTERATE MEGLUMINE 0.5 MMOL/ML (376.9 MG/ML) INTRAVENOUS SOLUTION - 17 mL, FINDINGS: There is a nonenhancing mass within the medial left temporal lobe measuring 2.5 x 2.5 cm, not significantly changed compared to the prior MRI or the older MRI of 2013. Mild patchy periventricular FLAIR signal abnormalities are not significantly changed. Mild increased T2/FLAIR signal within the pontomedullary junction is not significantly changed. There are a few periventricular black holes with mild atrophy. No abnormal enhancement or restricted diffusion. No acute hemorrhage, mass effect, midline shift or extraaxial fluid collection. Expected flow voids are seen within the intracranial internal carotid, vertebral and basilar arteries. The cerebellopontine angles and internal auditory canals are unremarkable. The pituitary gland and midline structures are unremarkable. Bone marrow signal is within normal limits. The orbits and globes are unremarkable. Expected signal voids are seen within the paranasal sinuses. Trace amount of fluid is seen within the mastoid air cells. No abnormal enhancement. [facility], Rad In Fu ji Speechq - 06/14/2018 5:05 PM EST EXAMINATION: MR BRAIN WITH AND WITHOUT CONTRAST HISTORY: ORDERING SYSTEM PROVIDED HISTORY: f/u MS, please compare, TECHNOLOGIST PROVIDED HISTORY: Reason for exam: MS Illness/Other Encounter Type: Subsequent/Follow-up Additional signs and symptoms: . ORDERING SYSTEM PROVIDED DIAGNOSIS CODES: G35 Multiple sclerosis (HCC) COMPARISON: Brain MRI 08/11/2017, brain MRI 07/30/2013. TECHNIQUE: Multiplanar, multisequence MR imaging of the head was performed prior to and following the administration of intravenous contrast on a 3 Alanna scanner per [place] protocol. CONTRAST: GADOTERATE MEGLUMINE 0.5 MMOL/ML (376.9 MG/ML) INTRAVENOUS SOLUTION - 17 mL, FINDINGS: There is a nonenhancing mass within the medial left temporal lobe measuring 2.5 x 2.5 cm, not significantly changed compared to the prior MRI or the older MRI of 2013. Mild patchy periventricular FLAIR signal abnormalities are not significantly changed. Mild increased T2/FLAIR signal within the pontomedullary junction is not significantly changed. There are a few periventricular black holes with mild atrophy. No abnormal enhancement or restricted diffusion. No acute hemorrhage, mass effect, midline shift or extraaxial fluid collection. Expected flow voids are seen within the intracranial internal carotid, vertebral and basilar arteries. The cerebellopontine angles and internal auditory canals are unremarkable. The pituitary gland and midline structures are unremarkable. Bone marrow signal is within normal limits. The orbits and globes are unremarkable. Expected signal voids are seen within the paranasal sinuses. Trace amount of fluid is seen within the mastoid air cells. No abnormal enhancement. IMPRESSION: 1. No significant change of a 2.5 cm nonenhancing mass within the medial left temporal lobe compared to the prior studies dating back to 2013, compatible with a low grade glioma. 2. No significant change of mild supratentorial and infratentorial white matter signal abnormalities, compatible with reported multiple sclerosis. No abnormal enhancement or restricted diffusion to suggest active demyelination. There are mild periventricular black holes with mild cerebral atrophy. [employer] Workstation ID: [id number] [facility] MR Comparison Importon 09-04 MR Comparison Import This order has been auto-finalized and does not contain a result. Invalid Interpretation Code [employer] MR Comparison Import This order has been auto-finalized and does not contain a result. Invalid Interpretation Code [employer] [facility] XR COMPARISON IMPORTon 09-04 XR COMPARISON IMPORT This order has been auto-finalized and does not contain a result. Invalid Interpretation Code [facility] Vitamin D, Total, 25-OHon Interpretation and review of laboratory results Normal Invalid Interpretation Code [facility] Vit D, 25-Hydroxy 35 ng/mL Invalid Interpretation Code 30 - 100 ng/mL [facility] Vitamin D, Total, 25-OH Assay performed using [employer] CLIA methodology. Invalid Interpretation Code [facility] Vital Signs Date Time Vital Sign Value Performing Clinician Facility 02-27-2025 11:31-0400 Body temperature 97.8 [degF] No Primary Care Physician [facility] 02-27-2025 11:31-0400 Body weight 100.32 kg No Primary Care Physician [facility] 02-27-2025 11:31-0400 Diastolic blood pressure 7 mm[Hg] No Primary Care Physician [facility] 02-27-2025 11:31-0400 Heart rate 89 /min No Primary Care Physician [facility] 02-27-2025 11:31-0400 Respiratory rate 17 /min No Primary Care Physician [facility] 02-27-2025 11:31-0400 SaO2% (BldA) [Mass fraction] 93 % No Primary Care Physician [facility] 02-27-2025 11:31-0400 Systolic blood pressure 113 mm[Hg] No Primary Care Physician [facility] 11-30-2024 16:12-0400 Diastolic blood pressure 65 mm[Hg] Dr. Jaquelin Faustin MD Work Phone: 7(528)168-418858 [place] [address] 11-30-2024 16:12-0400 Heart rate 74 /min Dr. Jaquelin Faustin MD Work Phone: 0(260)494-704758 [place] [address] 11-30-2024 16:12-0400 Respiratory rate 16 /min Dr. Jaquelin Faustin MD Work Phone: 9(040)869-038235 [place] [address] 11-30-2024 16:12-0400 Systolic blood pressure 153 mm[Hg] Dr. Jaquelin Faustin MD Work Phone: 5(128)489-730535 [place] [address] 11-30-2024 13:43-0400 Body height 160.[address] Jaquelin Faustin MD Work Phone: 1(369)460-345758 [place] [address] 11-30-2024 13:43-0400 Body temperature 97 [degF] Dr. Jaquelin Faustin MD Work Phone: 2(104)060-622358 [place] [address] 11-30-2024 13:43-0400 SaO2% (BldA) [Mass fraction] 99 % Dr. Jaquelin Faustin MD Work Phone: 5(433)816-042358 [place] [address] 11-29-2024 14:37-0400 Diastolic blood pressure 46 mm[Hg] Dr. Jaquelin Faustin MD Work Phone: 3(012)219-573258 [place] [address] 11-29-2024 14:37-0400 Heart rate 79 /min Dr. Jaquelin Faustin MD Work Phone: 7(831)418-390558 [place] [address] 11-29-2024 14:37-0400 Systolic blood pressure 140 mm[Hg] Dr. Jaquelin Faustin MD Work Phone: 5(293)131-257358 [place] [address] 11-29-2024 12:46-0400 Body height 160.[address] Jaquelin Faustin MD Work Phone: [facility] 11-29-2024 12:46-0400 Body temperature 97.3 [degF] Dr. Jaquelin Faustin MD Work Phone: 2(239)147-955258 [place] [address] 11-29-2024 12:46-0400 Respiratory rate 16 /min Dr. Jaquelin Faustin MD Work Phone: 3(408)361-346535 [place] [address] 11-29-2024 12:46-0400 SaO2% (BldA) [Mass fraction] 98 % Dr. Jaquelin Faustin MD Work Phone: 9(930)376-157758 [place] [address] 10-27-2024 13:13-0400 Body height 160.[address] Jaquelin Faustin MD Work Phone: 4(706)614-406935 [place] [address] 10-27-2024 13:13-0400 Body mass index (BMI) [Ratio] 40.6 kg/m2 Dr. Jaquelin Faustin MD Work Phone: 7(006)758-444235 [place] [address] 10-27-2024 13:13-0400 Body temperature 97.8 [degF] Dr. Jaquelin Faustin MD Work Phone: 6(524)542-317435 [place] [address] 10-27-2024 13:13-0400 Body weight 103.[address] Jaquelin Faustin MD Work Phone: 6(658)385-137835 [place] [address] 10-27-2024 13:13-0400 Diastolic blood pressure 72 mm[Hg] Dr. Jaquelin Faustin MD Work Phone: 9(982)277-402458 [place] [address] 10-27-2024 13:13-0400 Heart rate 80 /min Dr. Jaquelin Faustin MD Work Phone: 0(280)213-565535 [place] [address] 10-27-2024 13:13-0400 Respiratory rate 17 /min Dr. Jaquelin Faustin MD Work Phone: 1(624)633-761835 [place] [address] 10-27-2024 13:13-0400 SaO2% (BldA) [Mass fraction] 93 % Dr. Jaquelin Faustin MD Work Phone: 4(361)462-804358 [place] [address] 10-27-2024 13:13-0400 Systolic blood pressure 138 mm[Hg] Dr. Jaquelin Faustin MD Work Phone: [facility] 09-12-2024 11:16-0400 Body mass index (BMI) [Ratio] 39.3 kg/m2 Dr. Jaquelin Faustin MD Work Phone: 5(441)161-236558 [place] [address] 09-12-2024 11:16-0400 Body temperature 97.8 [degF] Dr. Jaquelin Faustin MD Work Phone: 5(467)919-011158 [place] [address] 09-12-2024 11:16-0400 Body weight 100.[address] Jaquelin Faustin MD Work Phone: 3(816)772-951135 [place] [address] 09-12-2024 11:16-0400 Diastolic blood pressure 70 mm[Hg] Dr. Jaquelin Faustin MD Work Phone: 7(618)442-894858 [place] [address] 09-12-2024 11:16-0400 Heart rate 84 /min Dr. Jaquelin Faustin MD Work Phone: 9(631)212-160358 [place] [address] 09-12-2024 11:16-0400 Respiratory rate 16 /min Dr. Jaquelin Faustin MD Work Phone: 1(997)899-829758 [place] [address] 09-12-2024 11:16-0400 SaO2% (BldA) [Mass fraction] 95 % Dr. Jaquelin Faustin MD Work Phone: [facility] 09-12-2024 11:16-0400 Systolic blood pressure 144 mm[Hg] Dr. Jaquelin Faustin MD Work Phone: 6(277)288-966558 [place] [address] 08-10-2024 09:36-0400 Body mass index (BMI) [Ratio] 40 kg/m2 Dr. Jaquelin Faustin MD Work Phone: 8(133)056-397858 [place] [address] 08-10-2024 09:36-0400 Body temperature 97.8 [degF] Dr. Jaquelin Faustin MD Work Phone: 6(029)598-421058 [place] [address] 08-10-2024 09:36-0400 Body weight 102.[address] Jaquelin Faustin MD Work Phone: [facility] 08-10-2024 09:36-0400 Diastolic blood pressure 82 mm[Hg] Dr. Jaquelin Faustin MD Work Phone: 7(382)241-517058 [place] [address] 08-10-2024 09:36-0400 Heart rate 94 /min Dr. Jaquelin Faustin MD Work Phone: 3(408)907-169697 [address] 08-10-2024 09:36-0400 Respiratory rate 16 /min Dr. Jaquelin Faustin MD Work Phone: 9(075)890-956458 [place] [address] 08-10-2024 09:36-0400 SaO2% (BldA) [Mass fraction] 95 % Dr. Jaquelin Faustin MD Work Phone: 0(548)342-155658 [place] [address] 08-10-2024 09:36-0400 Systolic blood pressure 126 mm[Hg] Dr. Jaquelin Faustin MD Work Phone: 7(836)301-517658 [place] [address] 08-02-2024 11:21-0400 Body height 160.[address] Jaquelin Faustin MD Work Phone: 1(853)905-072258 [place] [address] 08-02-2024 11:21-0400 Body mass index (BMI) [Ratio] 39.3 kg/m2 Dr. Jaquelin Faustin MD Work Phone: 8(310)737-767758 [place] [address] 08-02-2024 11:21-0400 Body temperature 97.5 [degF] Dr. Jaquelin Faustin MD Work Phone: 4(923)394-045458 [place] [address] 08-02-2024 11:21-0400 Body weight 100.[address] Jaquelin Faustin MD Work Phone: 8(568)721-680558 [place] [address] 08-02-2024 11:21-0400 Diastolic blood pressure 66 mm[Hg] Dr. Jaquelin Faustin MD Work Phone: 2(474)375-188358 [place] [address] 08-02-2024 11:21-0400 Heart rate 84 /min Dr. Jaquelin Faustin MD Work Phone: [facility] 08-02-2024 11:21-0400 Respiratory rate 17 /min Dr. Jaquelin Faustin MD Work Phone: 6(744)939-972558 [place] [address] 08-02-2024 11:21-0400 SaO2% (BldA) [Mass fraction] 96 % Dr. Jaquelin Faustin MD Work Phone: 8(512)223-872758 [place] [address] 08-02-2024 11:21-0400 Systolic blood pressure 135 mm[Hg] Dr. Jaquelin Faustin MD Work Phone: 5(187)847-578535 [place] [address] 05-30-2024 11:10-0500 Body mass index (BMI) [Ratio] 38.7 kg/m2 Dr. Jaquelin Faustin MD Work Phone: 1(273)311-350635 [place] [address] 05-30-2024 11:10-0500 Body temperature 98.2 [degF] Dr. Jaquelin Faustin MD Work Phone: 4(134)187-585535 [place] [address] 05-30-2024 11:10-0500 Body weight 99.[address] Jaquelin Faustin MD Work Phone: 9(483)065-374035 [place] [address] 05-30-2024 11:10-0500 Diastolic blood pressure 79 mm[Hg] Dr. Jaquelin Faustin MD Work Phone: 6(048)091-598135 [place] [address] 05-30-2024 11:10-0500 Heart rate 85 /min Dr. Jaquelin Faustin MD Work Phone: 5(812)506-807035 [place] [address] 05-30-2024 11:10-0500 Respiratory rate 16 /min Dr. Jaquelin Faustin MD Work Phone: 9(940)257-629935 [place] [address] 05-30-2024 11:10-0500 SaO2% (BldA) [Mass fraction] 95 % Dr. Jaquelin Faustin MD Work Phone: 5(906)774-994735 [place] [address] 05-30-2024 11:10-0500 Systolic blood pressure 161 mm[Hg] Dr. Jaquelin Faustin MD Work Phone: [facility] 03-04-2023 08:50-0400 Body height 160.[address] Gordon Delgado Work Phone: [facility] 03-04-2023 08:50-0400 Body mass index (BMI) [Ratio] 36.6 kg/m2 Dr. Gordon Delgado Work Phone: 8(751)824-957693 [address] 03-04-2023 08:50-0400 Body temperature 98 [degF] Dr. Gordon Delgado Work Phone: [facility] 03-04-2023 08:50-0400 Body weight 93.[address] Gordon Delgado Work Phone: 5(038)730-729593 [address] 03-04-2023 08:50-0400 Diastolic blood pressure 70 mm[Hg] Dr. Gordon Delgado Work Phone: 2(824)601-522693 [address] 03-04-2023 08:50-0400 Heart rate 90 /min Dr. Gordon Delgado Work Phone: [facility] 03-04-2023 08:50-0400 Respiratory rate 17 /min Dr. Gordon Delgado Work Phone: [facility] 03-04-2023 08:50-0400 SaO2% (BldA) [Mass fraction] 91 % Dr. Gordon Delgado Work Phone: [facility] 03-04-2023 08:50-0400 Systolic blood pressure 130 mm[Hg] Dr. Gordon Delgado Work Phone: [facility] 03-10-2022 12:00-0400 Diastolic blood pressure 57 mm[Hg] [address] 03-10-2022 12:00-0400 Heart rate 66 /min [address] 03-10-2022 12:00-0400 Respiratory rate 17 /min [address] 03-10-2022 12:00-0400 SaO2% (BldA) [Mass fraction] 94 % [address] 03-10-2022 12:00-0400 Systolic blood pressure 117 mm[Hg] [facility] 02 [facility] 03-10-2022 11:35-0400 Body temperature 96.4 [degF] [facility] 03-10-2022 10:24-0400 Body height 162.6 cm [facility] 02 [facility] 03-10-2022 10:24-0400 Body mass index (BMI) [Ratio] 34.81 kg/m2 [facility] 03-10-2022 10:24-0400 Body weight [address] 12-10-2020 09:16-0400 Body height 162.6 cm Maria E Alexanderhortensiatracy PRESCOTT Work Phone: [facility] 12-10-2020 09:16-0400 Body mass index (BMI) [Ratio] 30.04 kg/m2 Maria E Alexanderhortensiar [employer] Work Phone: [facility] 12-10-2020 09:16-0400 Body weight 79.38 kg Maria E Alexanderhrotensiar [employer] Work Phone: [facility] 12-10-2020 09:16-0400 Diastolic blood pressure 73 mm[Hg] Maria E Alexanderhortensiar [employer] Work Phone: [facility] 12-10-2020 09:16-0400 Heart rate 99 /min Maria E Crouchr [employer] Work Phone: [facility] 12-10-2020 09:16-0400 Systolic blood pressure 104 mm[Hg] Maria E Alexanderhortensiar [employer] Work Phone: [facility] 03-30-2019 12:53-0500 BMI (Body Mass Index) 31.14 kg/m2 Maria E Alexanderhortensiatracy [facility] 03-30-2019 12:53-0500 Body weight 81.65 kg Maria E Willar [facility] 03-30-2019 12:53-0500 BP Diastolic 66 mm[Hg] Maria E Crouchr [facility] 03-30-2019 12:53-0500 BP Systolic 144 mm[Hg] Maria E Crouchr [facility] 03-30-2019 12:53-0500 Height 161.9 cm Maria E Baca [facility] 03-30-2019 12:53-0500 Pulse (Heart Rate) 89 /min Maria E Baca [facility] 10-18-2018 12:10-0400 BMI (Body Mass Index) 29.18 kg/m2 Maria E Baca [facility] 10-18-2018 12:10-0400 BP Diastolic 80 mm[Hg] Maria E Baca [facility] 10-18-2018 12:10-0400 BP Systolic 163 mm[Hg] Maria E Baca [facility] 10-18-2018 12:10-0400 Height 162.6 cm Maria E Baca [facility] 10-18-2018 12:10-0400 Pulse (Heart Rate) 79 /min Maria E Baca [facility] 10-18-2018 12:10-0400 Weight 77.11 kg Maria E Baca [facility] 07-07-2018 12:43-0500 BMI (Body Mass Index) 29.18 kg/m2 [facility] 07-07-2018 12:43-0500 Body weight 77.11 kg [facility] 07-07-2018 12:43-0500 BP Diastolic 68 mm[Hg] [facility] 07-07-2018 12:43-0500 BP Systolic 105 mm[Hg] [facility] 07-07-2018 12:43-0500 Height 162.6 cm [facility] 07-07-2018 12:43-0500 Pulse (Heart Rate) 82 /min [facility] 06-14-2018 13:15-0500 BMI (Body Mass Index) 29.18 kg/m2 Maria E Baca [facility] 06-14-2018 13:15-0500 Weight 77.11 kg Maria E Baca [facility] 05-06-2018 08:30-0500 BMI (Body Mass Index) 30.55 kg/m2 [facility] 05-06-2018 08:30-0500 Height 162.6 cm [facility] 05-06-2018 08:30-0500 [facility] 80[facility] 11:17-0400 BP Diastolic 77 mm[Hg] Emeli Ovidio [facility] 09-14-2017 11:17-0400 BP Systolic 122 mm[Hg] Emeli Petitti [facility] 09-14-2017 11:17-0400 Pulse (Heart Rate) 77 /[facility] 12:47-0400 BMI (Body Mass Index) 31.53 kg/m2 [facility] 09-02-2017 12:47-0400 BP Diastolic 78 mm[Hg] [facility] 09-02-2017 12:47-0400 BP Systolic 129 mm[Hg] [facility] 09-02-2017 12:47-0400 Height 160 cm [facility] 09-02-2017 12:47-0400 Pulse (Heart Rate) 80 /min [facility] 09-02-2017 12:47-0400 Weight 80.74 kg [facility] Encounters Encounter Date Encounter Type Care Provider Facility Start: 03-17-2025 ambulatory Tara Paul Facility :[facility] Start: 02-27-2025 End: 02-27-[address] Gordon Delgado MD -[facility] Work Phone: Start: 02-27-2025 End: 02-27-2025 ambulatory No Primary Care Physician -[facility] Start: 02-04-2025 End: 02-04-2025 Emergency department patient visit ROSAMARIA WALLIS Facility:[facility] Start: 01-25-2025 ambulatory DENNYS CALERO MD Faci lity:[facility] Start: 01-07-2025 End: 01-07-2025 Emergency department patient visit ALYSSA SHAH DO~[id number] Facility:[facility] Start: 12-30-2024 End: 12-30-2024 ambulatory ~[id number] LARRY VILLANUEVA MD Facility:[facility] Start: 12-05-2024 End: 12-07-2024 ambulatory SONIA SCOTT MD~[id number] Facility:[facility] Start: 12-01-2024 ambulatory No Primary Car e Physician Facility:[facility] Start: 12-01-2024 End: 12-01-2024 Emergency department patient visit MADI VASQUEZ DO Facility:[facility] Start: 11-30-2024 End: 11-30-[address] Gordon Delgado MD -[facility] Work Phone: Start: 11-30-2024 End: 11-30-[address] Jaquelin Faustin MD Work Phone: [facility] Start: 11-29-2024 End: 11-29-[address] Gordon Delgado MD [facility] Work Phone: Start: 11-29-2024 End: 11-29-[address] Jaquelin Faustin MD Work Phone: [facility] Start: 11-04-2024 End: 11-04-[address]~[id number] LARRY VILLANUEVA MD Facility:[facility] Start: 11-01-2024 End: 11-01-[address]~[id number] JAQUELIN FAUSTIN MD Facility:[facility] Start: 10-27-2024 End: 10-27-[address] Jaquelin Faustin MD Work Phone: [facility] Work Phone: Start: 10-27-2024 End: 10-27-[address] Gordon Delgado MD -[facility] Work Phone: Start: 10-27-2024 End: 10-27-2024 ambulatory Tara Paul Facility:[facility] Start: 09-28-2024 End: 09-28-[address]~[id number] LARRY VILLANUEVA MD Facility:[facility] Start: 09-26-2024 End: 09-26-[address]~[id number] LARRY VILLANUEVA MD Facility:[facility] Start: 09-22-2024 ambulatory No Primary Car e Physician Facility:[facility] Start: 09-22-2024 Non-patient / Non-visit Dr. Jose Angel pride MD -[facility] Start: 09-22-2024 End: 09-22-[address] Gordon Delgado MD -[facility] Work Phone: Start: 09-22-2024 End: 09-22-2024 ambulatory No Primary Care Physician Facility:[facility] Start: 09-12-2024 End: 09-12-[address] Gordon Delgado MD -[facility] Work Phone: Start: 09-12-2024 End: 09-12-2024 ambulatory Jaquelin Faustin Facility:[facility] Start: 08-16-2024 End: 08-16-2024 ambulatory ~[id number] JAQUELIN FAUSTIN MD Facility:[facility] Start: 08-10-2024 End: 08-10-[address] Gordon Delgado MD -[facility] Work Phone: Start: 08-10-2024 End: 08-10-2024 ambulatory Jaquelin Faustin Facility:[facility] Start: 08-02-2024 End: 08-02-[address] Jaquelin Faustin MD Work Phone: [facility] Work Phone: Start: 08-02-2024 End: 08-02-[address] Gordon Delgado MD -[facility] Work Phone: Start: 08-02-2024 End: 08-02-2024 ambulatory Tara Paul Facility:[facility] Start: 07-20-2024 End: 07-20-2024 ambulatory ~[id number] JAQUELIN FAUSTIN MD Facility:[facility] Start: 05-30-2024 End: 05-30-[address] Gordon Delgado MD -[facility] Work Phone: Start: 05-30-2024 End: 05-30-2024 ambulatory Jaquelin Faustin Facility:[facility] Start: 05-06-2024 End: 05-06-[address] Tara Paul MD -[facility] Work Phone: Start: 05-06-2024 End: 05-06-2024 ambulatory Tara Paul Facility:[facility] Start: 05-03-2024 End: 05-03-2024 ambulatory ~[id number] JAQUELIN FAUSTIN MD Facility:[facility] Start: 04-04-2024 End: 04-04-2024 ambulatory [facility] ABHILASH CAMPBELL MD~[id number] Facility:[facility] Start: 10-28-2023 Telephone encounter Neurology Provid er Neurology Comment on above: Appointment Start: 09-18-2023 Transcribe Orders Jaquelin aFustin MD Work Phone: [facility] Neu[facility] Comment on above: MS (multiple scleros is) (HCC) (Primary Dx) Start: 04-06-2023 End: 04-06-[address] Gordon Delgado Work Phone: [facility] Work Phone: Start: 04-06-2023 End: 04-06-[address] Gordon Delgado Work Phone: [facility]Neurology Work Phone: Start: 03-04-2023 End: 03-04-[address] Gordon Delgado Work Phone: [facility] Work Phone: Start: 10-17-2022 ambulatory JAQUELIN FAUSTIN [facility] Start: 10-14-2022 End: 10-14-2022 ambulatory [facility] Work Phone: Start: 10-14-2022 End: 10-14-2022 Patient encounter procedure [facility] Work Phone: Start: 09-17-2022 End: 09-17-2022 ambulatory [facility] Work Phone: Start: 09-17-2022 End: 09-17-2022 Patient encounter procedure [facility] Start: 03-10-2022 [facility] Start: 03-10-2022 End: 03-10-2022 Evaluation and management of inpatient McSa Proc Rm [address] [facility] Start: 03-10-2022 End: 03-10-2022 Subsequent hospital visit by physician Scott Pearson DO Work Phone: [facility] Comment on above: Noninfectious gastro enteritis, unspecified type (Primary Dx); Noninfective gastroenteritis and colitis, unspecified Start: 12-10-2020 End: 12-10-2020 ambulatory MARIA E BACA [facility] Start: 12-10-2020 End: 12-10-2020 Office outpatient visit 25 minutes Maria E Baca CNP Work Phone: [facility] Neuroscience Comment on above: Multiple sclerosis ( HCC) (Primary Dx); Vitamin D deficiency; Seizure (HCC) Start: 11-26-2020 End: 11-26-2020 Refill Bonnie Michael MA [facility] Start: 01-18-2020 End: 01-22-2020 Patient encounter procedure BUBBA SIMS [facility] Start: 03-30-2019 End: 03-30-2019 [facility] Start: 03-30-2019 End: 03-30-2019 Office outpatient visit 25 minutes Maria E Baca Work Phone: [facility] Neuro[facility] Comment on above: Multiple sclerosis ( HCC) (Primary Dx); Vitamin D deficiency; Convulsions, unspecified convulsion type (HCC) Start: 10-18-2018 End: 10-18-2018 Office outpatient visit 25 minutes Maria E Baca Work Phone: [facility] Comment on above: Seizure (HCC) (Prima ry Dx); Multiple sclerosis (HCC); Vitamin D deficiency Start: 07-07-2018 End: 07-07-2018 Office outpatient visit 40 minutes Bubba Sims Work Phone: [facility] Comment on above: Multiple sclerosis ( HCC) (Primary Dx) Start: 06-14-2018 End: 06-14-2018 Patient encounter procedure Maria E Ray Milka Work Phone: [facility] MRI Comment on above: Multiple sclerosis ( HCC) Start: 05-16-2018 End: 05-16-2018 Patient encounter procedure Sabianist Louis Nirav Work Phone: [facility] Start: 05-14-2018 End: 05-14-2018 Patient encounter procedure Meet Keith Nirav Work Phone: [facility] Comment on above: HNP (herniated nucle us pulposus), cervical; Cervical radiculopathy; Cervical spinal stenosis; Multiple sclerosis (HCC) Start: 05-06-2018 End: 05-06-2018 Office outpatient visit 15 minutes Meet Gastelum Work Phone: [facility] Comment on above: HNP (herniated nucle us pulposus), cervical (Primary Dx); Cervical radiculopathy; Cervical spinal stenosis; Multiple sclerosis (HCC) Start: 02-22-2018 End: 02-22-2018 Patient encounter Tomnancy Gaitan Ted Work Phone: [facility] Comment on above: Neuropathy Start: 11-23-2017 End: 11-23-2017 Patient encounter BUBBA SIMS [facility] Start: 11-17-2017 End: 11-17-2017 Ambulatory Bubba Sims Work Phone: [facility] Start: 10-30-2017 End: 10-30-2017 Ambulatory Bubba Sims Work Phone: [facility] Start: 10-19-2017 End: 10-19-2017 Ambulatory Bubba Sims Work Phone: [facility] Start: 10-12-2017 End: 10-12-2017 Ambulatory Bubba Sims Work Phone: [facility] Start: 09-30-2017 End: 09-30-2017 Ambulatory Bubba Sims Work Phone: [facility] Start: 09-21-2017 End: 09-21-2017 Ambulatory Bubba Sims Work Phone: [facility] Start: 09-14-2017 End: 09-14-2017 Ambulatory Bubba Sims Work Phone: [facility] Start: 09-04-2017 End: 09-04-2017 Ambulatory Provider Not In System [facility] Radiology External Films Start: 09-02-2017 End: 09-02-2017 Office/outpatient visit, [facility], level 5 Jaquelin Faustin Work Phone: [facility] Procedures Date Procedure Procedure Detail Performing Clinician Start: 09-17-2022 Plain X-ray of shoulder Start: 03-10-2022 Colonoscopy Scott Elenatison DO Work Phone: Start: 03-10-2022 Level iv surg pathol ogy gross&microscopic exam Scott L Charlie DO Work Phone: Start: 12-10-2020 Adult depression scr eening assessment Jaquelin Faustin MD Work Phone: Start: 06-14-2018 Mri brain brain stem w/o w/contrast material Maria E Baca Work Phone: Start: 09-04-2017 Mammography Jaquelin Faustin MD Work Phone: Start: 09-02-2017 End: 09-02-2017 Cmptr ophth img optic nerve Bubbaclay Sims Work Phone: Plan of Treatment Date Care Activity Detail Author Start: 03-10-2032 Screening for malignant neoplasm of colon Colorectal Cancer Screening: Colonoscopy [facility] Start: 05-30-2025 MRI of thoracic spine with contrast [facility] Start: 05-14-2025 ambulatory Ambulatory Facility:[facility] Start: 02-27-2025 [facility] Start: 11-30-2024 Iv infusion therapy prophylaxis/dx ea hour THER/PROPH/DIAG IV INF ADDON [facility] Start: 11-30-2024 Vedolizumab therapy THER/PROPH/DIAG IV INF INIT [facility] Start: 01-10-2024 Influenza vaccination Influenza Vaccine (Season Ended) [facility] Start: 05-11-2023 Advance Directive Discussion Advance Directive Discussion [facility] Start: 05-11-2023 Behavioral Health Screening Behavioral Health Screening [facility] Start: 04-06-2023 [facility] Start: 01-09-2023 Covid-19 Vaccine ( season) Covid-19 Vaccine () [facility] Start: 01-09-2023 COVID-19 Vaccine () COVID-19 Vaccine () [facility] Start: 02-18-2022 Adolescent depression screening assessment Depression Screening [facility] Start: 02-18-2022 Falls Risk Assessment Falls Risk Assessment [facility] Start: 02-18-2022 Hepatitis C screening Hepatitis C Screening [facility] Start: 02-18-2022 Lipid panel Cholesterol Screening (Lipid Panel) [facility] Start: 02-18-2022 Medicare Annual Wellness Visit Medicare Annual Wellness Visit [facility] Start: 02-18-2022 Screening for malignant neoplasm of breast Breast Cancer Screening [facility] Start: 02-18-2022 Screening for osteoporosis Osteoporosis Screening (Bone Density Screening) [facility] Start: 02-18-2022 Social Influencers of Health Screening Social Influencers of Health Screening [facility] Start: 12-10-2021 Depression screening using PHQ-9 (Patient Health Questionnaire 9) score Depression Screening (PHQ-2/9) [facility] Start: 09-12-2021 End: 09-12-2021 Patient encounter procedure 09/12/2021 Office Visit Neurology Bubba Sims MD [address] [place] [address] [address] [place] [address] [phone] [facility] Start: 06-06-2021 COVID-19 Vaccine (4 - Booster for Pfizer series) COVID-19 Vaccine (4 - Booster for Pfizer series) [facility] Start: 01-09-2021 Influenza vaccination Sequential Influenza Vaccine (#1) [facility] Start: 12-29-2019 End: 12-29-2019 Office Visit 12/29/2019 Office Visit Neurology Bubba Sims MD [address] [place] [address] [phone] [facility] Start: 03-30-2019 End: 03-30-2019 Office Visit 03/30/2019 Office Visit Neurology Maria E Baca, SUPERINTENDENT PRESSURE [address] [place] [address] [phone] [facility] Start: 01-09-2019 Influenza vaccination given SEQUENTIAL INFLUENZA VACCINE (Season Ended) [facility] Start: 09-04-2018 Screening for malignant neoplasm of breast Mammogram [facility] Start: 07-16-2018 End: 07-16-2018 Ambulatory 07/16/2018 Follow-Up Neurosurgery Wiliam Santos, DO [address] [place] [address] [phone] [facility] Start: 07-07-2018 End: 07-07-2018 Ambulatory 07/07/2018 Office Visit Neurology Bubba Sims MD [address] [place] [address] [phone] [facility] Start: 06-14-2018 End: 06-14-2018 Ambulatory 06/14/2018 Appointment Radiology Maria E Baca, SUPERINTENDENT PRESSURE [address] [place] [address] [phone] [facility] Start: 06-08-2018 End: 06-08-2018 Ambulatory 06/08/2018 Follow-Up Neurosurgery Alfa Figueroa, SUPERINTENDENT PRESSURE [address] [place] [address] [phone] [facility] Start: 05-14-2018 End: 05-14-2018 Ambulatory 05/14/2018 Appointment Radiology Meet Gastelum MD [address] [facility] [address] [place] [address] [phone] [facility] Start: 01-09-2018 Influenza vaccination [facility] Start: 01-09-2018 Influenza vaccination given SEQUENTIAL INFLUENZA VACCINE (#1) [facility] Start: 12-30-2017 End: 12-30-2017 Ambulatory 12/30/2017 Office Visit Neurology Maria E Baca, SUPERINTENDENT PRESSURE [address] [facility] [address] [place] [address] [phone] [facility] Start: 12-01-2017 End: 12-01-2017 Ambulatory 12/01/2017 Treatment Bubba Queen MD [address] [facility] [address] [place] [address] [phone] Emeli Nolan, PT [facility] Start: 11-23-2017 End: 11-23-2017 Ambulatory 11/23/2017 Treatment Bubba Queen MD [address] [facility] [address] [place] [address] [phone] Emeli Nolan, PT [facility] Start: 11-17-2017 End: 11-17-2017 Ambulatory 11/17/2017 Treatment Bubba Queen MD [address] [facility] [address] [place] [address] [phone] Emeli Nolan, PT [facility] Start: 11-06-2017 End: 11-06-2017 Ambulatory 11/06/2017 Treatment Bubba Queen MD [address] [facility] [address] [place] [address] [phone] Emeli Nolan, PT [facility] Start: 10-30-2017 End: 10-30-2017 Ambulatory 10/30/2017 Treatment Bubba Queen MD [address] [facility] [address] [place] [address] Emeli Nolan, PT [facility] Start: 10-19-2017 End: 10-19-2017 Ambulatory 10/19/2017 Treatment Bubba Queen MD [address] [facility] [address] [place] [address] Emeli Nolan, PT [facility] Start: 10-12-2017 End: 10-12-2017 Ambulatory 10/12/2017 Treatment Bubba Queen MD [address] [facility] [address] [place] [address] Emeli Nolan, PT [facility] Start: 10-07-2017 End: 10-07-2017 Ambulatory 10/07/2017 Treatment Bubba Queen MD [address] [facility] [address] [place] [address] Emeli Nolan, PT [facility] Start: 09-30-2017 End: 09-30-2017 Ambulatory 09/30/2017 Treatment Bubba Queen MD [address] [facility] [address] [place] [address] Emeli Nolan, PT [facility] Start: 09-28-2017 End: 09-28-2017 Ambulatory 09/28/2017 Appointment Neurology Bubba Sims MD [address] [facility] [address] [place] [address] [facility] Start: 09-21-2017 End: 09-21-2017 Ambulatory 09/21/2017 Treatment Rehabilitation Bubba Sims MD [address] [facility] [address] [place] [address] [phone] Emeli Nolan, PT [facility] Start: 09-14-2017 End: 09-14-2017 Ambulatory 09/14/2017 Evaluation Rehabilitation Bubba Sims MD [address] [place] [address] [phone] Emeli Nolan, PT [facility] Start: 01-09-2017 Influenza vaccination SEQUENTIAL INFLUENZA VACCINE (#1) [facility] Start: 04-28-2016 Administration of herpes zoster vaccine Zoster Vaccines (2 of 3) [facility] Start: 2015 Fall risk assessment [facility] Start: 2015 Pneumococcal vaccination PNEUMOCOCCAL VACCINE AGE 65+ (1 of 2 - PCV13) [facility] Start: 2015 Pneumococcal Vaccine: 65+ (1 of 1 - PCV) Pneumococcal Vaccine: 65+ (1 of 1 - PCV) [facility] Start: 2015 Pneumococcal Vaccine: 65+ Years (1 - PCV) Pneumococcal Vaccine: 65+ Years (1 - PCV) [facility] Start: 2015 Pneumococcal Vaccine: Age 65+ (1 of 1 - PCV) Pneumococcal Vaccine: Age 65+ (1 of 1 - PCV) [facility] Start: 2015 Pneumococcal Vaccine: Age 65+ (1 of 1 - PPSV23) Pneumococcal Vaccine: Age 65+ (1 of 1 - PPSV23) [facility] Start: 2015 Screening for osteoporosis Bone Density Screening [facility] Start: 2010 RSV Vaccine (1 - 1-dose 60+ series) RSV Vaccine (1 - 1-dose 60+ series) [facility] Start: 2010 Zoster vacc, sc ZOSTER VACCINE [facility] Start: 06-13-2005 Diabetes Screening Diabetes Screening [facility] Start: 2000 Administration of herpes zoster vaccine ZOSTER VACCINES (1 of 2) [facility] Start: 2000 Screening for malignant neoplasm of colon [facility] Start: 2000 Shingrix Vaccine (1 of 2) Shingrix Vaccine (1 of 2) [facility] Start: 2000 ZOSTER VACCINES (1 of 2) ZOSTER VACCINES (1 of 2) [facility] Start: 1995 Lipid panel Lipid Screening [facility] Start: 1995 Screening for malignant neoplasm of colon [facility] Start: 1990 Screening for malignant neoplasm of breast [facility] Start: 1969 DTaP,Tdap,and Td Vaccines (1 - Tdap) DTaP,Tdap,and Td Vaccines (1 - Tdap) [facility] Start: 1969 Urine microalbumin profile DTaP,Tdap,Td Vaccine (1 - Tdap) [facility] Start: 1968 Hepatitis C screening Hepatitis C Screening [facility] Start: 1962 COVID-19 Vaccine (1) COVID-19 Vaccine (1) [facility] Start: 1962 Depression screening using PHQ-9 (Patient Health Questionnaire 9) score Depression Screening (PHQ9) [facility] Start: 1953 History and physical examination, annual for health maintenance Wellness Visit [facility] Start: 1950 [facility] Start: 1950 Fall risk assessment Falls Risk Assessment [facility] Start: 1950 Hepatitis B Vaccines (1 of 3 - 3-dose series) Hepatitis B Vaccines (1 of 3 - 3-dose series) [facility] Start: 1950 Hepatitis C antibody, confirmatory test HEPATITIS C SCREENING [facility] Start: 1950 HEPATITIS C SCREENING HEPATITIS C SCREENING [facility] Start: 1950 Protein mass conc [facility] Start: 1950 Screening colonoscopy COLONOSCOPY [facility] Start: 1950 Screening for malignant neoplasm of colon [facility] Start: 1950 Screening for osteoporosis DEXA SCAN [facility] Start: 1950 Screening mammography Mammogram [facility] Start: 1950 Tetanus vaccination [facility] Alanine aminotransfe rase [Enzymatic activity/volume] in Serum or Plasma [facility] Albumin [Mass/volume ] in Serum or Plasma [facility] Alkaline phosphatase [Enzymatic activity/volume] in Serum or Plasma [facility] Anion gap in Serum o r Plasma [facility] Bilirubin, total measurement [facility] BUN/Creatinine ratio [facility] Calcium [Mass/volume ] in Serum or Plasma [facility] Carbon dioxide, tota l [Moles/volume] in Central venous blood [facility] Creatinine [Mass/vol ume] in Serum or Plasma [facility] End: 09-02-2018 EEG (Standard) EEG (Standard) Routine Multiple sclerosis (HCC) 1 Occurrences starting 09/02/2017 until 09/02/2018 [facility] Erythrocyte mean corpuscular volume determination [facility] Glucose [Mass/volume ] in Serum or Plasma [facility] Hematocrit [Volume Fraction] of Blood [facility] Hemoglobin [Mass/vol ume] in Blood [facility] Leukocytes [#/volume ] in Blood [facility] Mean corpuscular hemoglobin concentration determination [facility] Mean corpuscular hemoglobin determination [facility] Measurement of renal function [facility] MR Brain WO and W contrast IV [facility] MR Brain WO and W contrast IV [facility] MR Cervical spine WO and W contrast IV [facility] MR Cervical spine WO and W contrast IV [facility] MR Lumbar spine WO a nd W contrast IV [facility] MR Lumbar spine WO a nd W contrast IV [facility] End: 05-06-2019 MRI of cervical spine without contrast MR Cervical Spine Without Contrast Routine HNP (herniated nucleus pulposus), cervical Cervical radiculopathy Cervical spinal stenosis Multiple sclerosis (HCC) 1 Occurrences starting 05/06/2018 until 05/06/2019 [facility] Comment on above: 1 Occurrences starting 05/06/2018 until 05/06/2019 End: 05-14-2018 MRI of cervical spine without contrast MR Cervical Spine Without Contrast Routine HNP (herniated nucleus pulposus), cervical Cervical radiculopathy Cervical spinal stenosis Multiple sclerosis (HCC) Once for 1 Occurrences starting 05/14/2018 until 05/14/2018 [facility] Comment on above: Once for 1 Occurrences starting 05/14/19 19 until 05/14/2018 MRI of cervical spin e without contrast MR Cervical Spine Without Contrast Routine HNP (herniated nucleus pulposus), cervical Cervical radiculopathy Cervical spinal stenosis Multiple sclerosis (HCC) 05/14/2018 5:34 PM EST [facility] MRI of thoracic spin e with contrast [facility] End: 05-06-2019 MRI of thoracic spine without contrast MR Thoracic Spine Without Contrast Routine HNP (herniated nucleus pulposus), cervical Cervical radiculopathy Cervical spinal stenosis Multiple sclerosis (HCC) 1 Occurrences starting 05/06/2018 until 05/06/2019 [facility] Comment on above: 1 Occurrences starting 05/06/2018 until 05/06/2019 End: 05-14-2018 MRI of thoracic spine without contrast MR Thoracic Spine Without Contrast Routine HNP (herniated nucleus pulposus), cervical Cervical radiculopathy Cervical spinal stenosis Multiple sclerosis (HCC) Once for 1 Occurrences starting 05/14/2018 until 05/14/2018 [facility] Comment on above: Once for 1 Occurrences starting 05/14/19 19 until 05/14/2018 MRI of thoracic spin e without contrast MR Thoracic Spine Without Contrast Routine HNP (herniated nucleus pulposus), cervical Cervical radiculopathy Cervical spinal stenosis Multiple sclerosis (HCC) 05/14/2018 5:34 PM EST [facility] Neutrophil count [facility] Neutrophil percent differential count [facility] End: 09-02-2018 Phenytoin Level, Total Phenytoin Level, Total Routine Multiple sclerosis (HCC) 1 Occurrences starting 09/02/2017 until 09/02/2018 [facility] Phenytoin Level, Total Phenytoin Level, Total Routine Multiple sclerosis (HCC) 09/02/2017 3:10 PM EDT [facility] Platelets [#/volume] in Blood [facility] Potassium measurement [facility] Red blood cell count [facility] Red cell distributio n width determination [facility] Serum chloride measurement [facility] Sodium measurement [facility] Total protein measurement [facility] Urea nitrogen [Mass/volume] in Serum or Plasma [facility] End: 09-03-2018 Vitamin B-12 Vitamin B12 Routine Multiple sclerosis (HCC) 1 Occurrences starting 09/02/2017 until 09/03/2018 [facility] Vitamin B-12 Vitamin B12 Rout ine Multiple sclerosis (HCC) 09/02/2017 3:10 PM EDT [facility] End: 10-19-2019 Vitamin D, 25-hydroxy measurement Vitamin D, Total, 25-OH Lab Routine Vitamin D deficiency 1 Occurrences starting 10/18/2018 until 10/19/2019 [facility] Comment on above: 1 Occurrences starting 10/18/2018 until 10/19/2019 Vitamin D, 25-hydrox y measurement Vitamin D, Total, 25-OH Lab Routine Vitamin D deficiency 10/18/2018 1:59 PM EDT [facility] End: 03-30-2020 Vitamin D, 25-hydroxy measurement Vitamin D, Total, 25-OH Lab Routine Vitamin D deficiency 1 Occurrences starting 03/30/2019 until 03/30/2020 [facility] Comment on above: 1 Occurrences starting 03/30/2019 until 03/30/2020 End: 12-11-2021 Vitamin D, 25-hydroxy measurement Vitamin D, Total, 25-OH Lab Routine Vitamin D deficiency 1 Occurrences starting 12/10/2020 until 12/11/2021 [facility] Comment on above: 1 Occurrences starting 12/10/2020 until 12/11/2021 [facility] Immunizations Immunization Date Immunization Notes Care Provider Fa cility 04-11-2021 Pfizer SARS-CoV-2 COVID-19, mRNA, LNP-S, preservative free [facility] 02 [facility] 07-20-2020 Pfizer SARS-CoV-2 COVID-19, mRNA, LNP-S, preservative free [facility] 02 [facility] 06-27-2020 Pfizer SARS-CoV-2 COVID-19, mRNA, LNP-S, preservative free [facility] 02 [facility] 03-09-2020 influenza virus vacc ine, unspecified formulation Jaquelin Faustin MD Work Phone: [facility] Payers Date Payer Category Payer Self-pay 2022 Medicare [id number] 2016 Private Health Insurance AETNA A [employer] HE[employer] LIFE/CONTINENTAL LIFE xxxxxxxxxx 2016-Present xxxxxxxxxx [id number] 2016 Private Health Insurance AETNA A ETNA HE[employer] AND LIFE/CONTINENTAL LIFE [id number] 2016-Present [id number] .[id number] 2015 Medicare [id number] 2015 Medicare MEDICARE MEDICAR E PART A & B xxxxxxxxxxx 2015-Present [place] x[place] [id number] 2015 Medicare [id number] 2015 Medicare MEDICARE MEDICAR E PART A & B [id number] 2015-Present [place] [id number] .[id number] 2015 Medicare [id number] 1.13.502.2 .[id number] 2015 Private Health Insurance [facility] [id number] 2015 Private Health Insurance [id number] .[id number] .[id number] 2012 Unknown [id number] 2001 Unknown [employer] SS PPO [id number] 2001-Present [phone] [address] [place] [address] PPO [id number] .[id number] 1950 Unknown [id number] 2.16.840.1.955676.3.579.2 .900 1950 Unknown [id number] 2.16.840.1.210528.3.579.2 .900 1950 Unknown [id number] 2.16.840.1.935304.3.579.2 .903 1950 Unknown [id number] 2.16.840.1.359292.3.579.2 .1143 1950 Unknown [id number] 2.16.840.1.407843.3.579.2 .1143 1950 Unknown [id number] 2.16.840.1.081033.3.579.2 .419 1950 Unknown [id number] 2.16.840.1.576031.3.579.2 .419 1950 Unknown [id number] 2.16.840.1.941073.3.579.2 .419 1950 Unknown [id number] 2.16.840.1.641450.3.579.2 .419 1950 Unknown [id number] 2.16.840.1.623740.3.579.2 .419 1950 Unknown [id number] 2.16.840.1.071909.3.579.2 .419 1950 Unknown [id number] 2.16.840.1.254944.3.579.2 .419 1950 Unknown [id number] 2.16.840.1.999273.3.579.2 .419 1950 Unknown [id number] 2.16.840.1.911901.3.579.2 .419 1950 Unknown [id number] 2.16.840.1.345822.3.579.2 .419 1950 Unknown [id number] 2.16.840.1.447135.3.579.2 .419 1950 Unknown [id number] 2.16.840.1.654287.3.579.2 .419 1950 Unknown [id number] 2.16.840.1.219273.3.579.2 .419 1950 Unknown [id number] 2.16.840.1.548352.3.579.2 .419 1950 Unknown [id number] 2.16.840.1.868045.3.579.2 .419 1950 Unknown [id number] 2.16.840.1.655593.3.579.2 .419 Unknown [id number] 2.16.840.1.652975.3.579.2 .462 Unknown [id number] 2.16.840.1.936967.3.579.2 .462 Unknown [id number] 2.16.840.1.944549.3.579.2 .462 Unknown [id number] 2.16.840.1.282834.3.579.2 .462 Unknown [id number] 2.16.840.1.528957.3.579.2 .462 Unknown [id number] 2.16.840.1.816600.3.579.2 .462 Unknown [id number] 2.16.840.1.467433.3.579.2 .462 Unknown [id number] 2.16.840.1.508981.3.579.2 .462 Unknown [id number] 2.16.840.1.775629.3.579.2 .462 Unknown [id number] 2.16.840.1.891298.3.579.2 .462 Unknown [id number] 2.16.840.1.350387.3.579.2 .462 Unknown [id number] 2.16.840.1.939138.3.579.2 .462 Unknown [id number] 2.16.840.1.568792.3.579.2 .462 Unknown [id number] 2.16.840.1.174387.3.579.2 .462 Unknown [id number] 2.16.840.1.909187.3.579.2 .462 Social History Date Type Detail Facility Start: 09-02-2017 End: 05-06-2018 Tobacco smoking status ORIS Former smoker [facility] Start: 1950 Sex Assigned At Not on file [facility] History of tobacco use Cigarette Smoker [facility] Start: 05-06-2018 End: 12-10-2020 Cigarettes smoked current (pack per day) - Reported [facility] Start: 05-06-2018 Tobacco Comment Quit 20 years [facility] Start: 03-30-2019 End: 12-25-2021 Alcohol intake Current non-drinker of alcohol (finding) [facility] Start: 05-06-2018 End: 01-18-2020 Tobacco use and exposure Never used [facility] Start: 02-28-2022 End: 03-10-2022 Exposure to SARS-CoV-2 (event) Not sure [facility] History of tobacco use Current smoker [employer] Start: 03-10-2022 Alcohol intake Ex-drinker (finding) [employer] Start: 1950 Sex Assigned At Female [facility] Start: 12-10-2020 End: 03-27-2021 Tobacco use panel [facility] Adult Depression Screening Assessment 0 [facility] Start: 05-14-2018 Gender identity Identifies as female gender (finding) [facility] Start: 05-14-2018 Sexual orientation Heterosexual (finding) [facility] Tobacco smoking stat us ORIS Unknown if ever smoked [facility] Work Phone: Start: 08-07-2024 Sex Female (finding) [facility] Mental Status Date Assessment Result Facility 11-29-2024 Cognitive function Awake;Alert;A ppropriate;Fol lows Commands [facility] Work Phone: Clinical Notes 12-10-2020 to 02-27-2025 Note Date & Type Note Facility 02-27-2025 Evaluation note Diagnosis Onset Date Resolution Epilepsy acute February 27, 2025 11:00am Fatigue acute February 27, 2025 11:00am Low back pain acute February 11:00am Multiple sclerosis, relapsing-remitting acute February 11:00am Multiple sclerosis, relapsing-remitting acute February 11:00am Polyneuropathy acute February 272024 11:00am Multiple sclerosis noneactive [facility] 2024 11:00am [facility] Work Phone: 1(911) 346-307004-02-2025 Evaluation note* Diagnosis Onset Date Resolution Status Admit Date Fatigue acute August 10 9:34am Epilepsy acute September 12, 2024 11:02am Fatigue acute September 12, 2024 11:02am Left carotid bruit acute September 11:02am Low back pain acute September 12 11:02am Multiple sclerosis noneactive September 11:02am Epilepsy acute October 27 1:09pm Fatigue acute October 27 1:09pm Polyneuropathy acute October 27, 2024 1:09pm Multiple sclerosis noneactive October 092024 1:09pm [facility] Work Phone: 1(129) 966-789603-25-2025 Evaluation note* Diagnosis Onset Date Resolution Status Admit Date Epilepsy acute August 02 11:13am Fatigue acute August 02 11:13am Multiple sclerosis noneactive August 02, 2024 11:13am Fatigue acute August 10 9:34am Epilepsy acute September 12, 2024 11:02am Fatigue acute September 12, 2024 11:02am Left carotid bruit acute September 11:02am Low back pain acute September 12 11:02am Multiple sclerosis noneactive September, 2024 11:02am [facility] Work Phone: 1(399) 953-703003-25-2025 Evaluation note* Diagnosis Onset Date Resolution Status Admit Date Epilepsy acute August 02 11:13am Fatigue acute August 02 11:13am Multiple sclerosis noneactive August 02, 2024 11:13am Fatigue acute August 10 9:34am Epilepsy acute September 12, 2024 11:02am Fatigue acute September 12, 2024 11:02am Left carotid bruit acute September, 2024 11:02am Low back pain acute September 12 11:02am Multiple sclerosis noneactive September 11:02am Fatigue acute October 27 1:09pm [facility] Work Phone: 1(964) 552-815203-25-2025 Evaluation note* Diagnosis Onset Date Resolution Status Admit Date Epilepsy acute August 02 11:13am Fatigue acute August 02 11:13am Multiple sclerosis noneactive August 02, 2024 11:13am Fatigue acute August 10 9:34am Epilepsy acute September 12, 2024 11:02am Fatigue acute September 12, 2024 11:02am Left carotid bruit acute September, 2024 11:02am Low back pain acute September 12 11:02am Multiple sclerosis noneactive September, 2024 11:02am Epilepsy acute October 27 1:09pm Fatigue acute October 27 1:09pm Polyneuropathy acute October 27, 2024 1:09pm Multiple sclerosis noneactive October 092024 1:09pm [facility] Work Phone: 1(271) 576-149601-20-2025 Evaluation note* Diagnosis Onset Date Resolution Status Admit Date Carotid bruit acute May 11:01am Epilepsy acute May 30, 2024 11:01am Fatigue acute May 30, 2024 11:01am Multiple sclerosis noneactive 2024 11:01am Epilepsy acute August 02 11:13am Fatigue acute August 02 11:13am Multiple sclerosis noneactive August 02, 2024 11:13am [facility] Work Phone: 1(966) 513-952311-07-2024 NotePROCEDURE: WRIST LEFT COMPLETE, 03/16/2024 8:00 AM EST CLINICAL INDICATIONS: Left wrist fracture, internal fixation. COMPARISON: 02/17/2024 TECHNIQUE: Left wrist, 3 views. FINDINGS: There is stable alignment and morphology of the volar plate-screw fixation of the distal radius fracture, hardware intact. Incomplete osseous union of distal radial fracture. Articular margin congruent. Triscaphe, first carpometacarpal, first metacarpophalangeal osteoarthrosis is noted. Generalized soft tissue swelling is present. IMPRESSION: 1. Stable alignment and morphology of volar plate-screw fixation of the distal radial fracture, hardware intact. 2. Incomplete osseous union. 3. Osteoarthrosis. 4. Soft tissue swelling.[facility]06-19-2024 Telephone encounter Note* Telephone Encounter - Emeli Harrington LPN - 10/28/2023 1:59 PM EDT Fax received from PCP at [facility] referring pt for MS. Pt has seen providers at [facility] in the past for MS. TC to pt to let her know that we are unable to see her in our office dueto her being seen for MS. Pt declines going back to the [facility] due to bad experiences in thepast. Went to [facility] and declines going back there for treatment also due to bad experiences. Pt will reach out to PCP for other recommendations. Emeli Harrington LPN [facility]06-19-2024 Miscellaneous Notes* Telephone Encounter - Emeli Harrington LPN - 10/28/2023 1:59 PM EDT Fax received from PCP at [facility] referring pt for MS. Pt has seen providers at [facility] in the past for MS. TC to pt to let her know that we are unable to see her in our office dueto her being seen for MS. Pt declines going back to the [facility] due to bad experiences in therist. Went to [facility] and declines going back there for treatment also due to bad experiences. Pt will reach out to PCP for other recommendations. Emeli Harrington LPN [facility] Discharge instructions* Discharge Instructions* Jacklyn Tucker RN - 03/10/2022 11:48 AM EDT Endoscopy Discharge Instructions Your Procedure Was: Colonoscopy Follow-up Care Repeat colonoscopy in 1 year. Biopsies were done. Your results should be available in 1-2 weeks. If you have not heard back in 1-2 weeks contact your doctor. Call 911 if you have difficulty breathing or chest pain. 2. Call your doctor or go to the emergency room if you have: A fever greater than 101 or chills Intense or severe pain Heavy bleeding (a few streaks of blood are not unusual) Nausea and vomiting that does not go away Trouble swallowing Increased abdominal bloating Call your doctor with any other questions or problems. 3. Sedation You received sedation for your procedure today and it may take 24 hours to leave your system. You may have some drowsiness, lightheadedness, and may not remember your procedure. You should have an adult stay with you for 24 hours. Do not take any other sedatives or drink alcohol today. Do not drive or operate machinery (power tools, lawn mowers, etc.), cook, make business decisions or shop online for 24 hours. Although you may feel alert, your reactions may be slower. 4. Diet Resume your regular diet unless instructed otherwise. 5. Activity. You may resume normal activity in 24 hours. Do not return to work today. * Attachments The following attachments cannot be sent through Care Everywhere. * Colon Polyps (Estonian) documented in this encounterTrinity [id number] History of Present illness Narrative* Erica Moyer RN - 03/10/2022 11:[address] Scott Pearson colon polyps, documented in this encounterP[facility] [id number] History and physical note* Scott Pearson, DO - 03/10/2022 10:00 AM EDT Images from the original note were not included. GASTROENTEROLOGY OUTPATIENT PRE-PROCEDURE NOTE Patient Name: Sotero Bethea MR #: [id number] Indication: Colitis Brief History: 71F w/ history of colitis consistent with possible UC on prior colonoscopy in 2020 now on mesalamine here for disease reassessment. Past Medical History: Past Medical History: Diagnosis Date H/O Graves' disease treated Heart murmur Medical cannabis use Uses a topical salve MS (multiple sclerosis) (CMS/HCC) Restless leg syndrome Seizure (CMS/HCC) Well controlled on Kepra Urinary incontinence Past Surgical History: Procedure Laterality Date ADENOIDECTOMY APPENDECTOMY 06/26/2021 gangrenous & ruptured BLADDER SUSPENSION CATARACT EXTRACTION Bilateral COLONOSCOPY DILATION AND CURETTAGE OF UTERUS Multiple HYSTERECTOMY TONSILLECTOMY No family history on file. Social History Socioeconomic History Marital status: Spouse name: Not on file Number of children: Not on file Years of education: Not on file Highest education level: Not on file Occupational History Not on file Tobacco Use Smoking status: Former Packs/day: 1.00 Years: 20.00 Pack years: 20.00 Types: Cigarettes Smokeless tobacco: Never Vaping Use Vaping Use: Never used Substance and Sexual Activity Alcohol use: Not Currently Drug use: Yes Types: Marijuana/Cannabis Comment: Cannabis topical salve-medical marijuana card Sexual activity: Not on file Other Topics Concern Not on file Social History Narrative Not on file Allergies: Nitrofurantoin, Teriflunomide, Glatiramer (copolymer 1), Tetracyclines, and Adhesive tape-silicones Home Medications: Home Medications cholecalciferol (VITAMIN D-3) 50 mcg (2,000 unit) tablet Take 1 tablet (2,000 Units total) by mouth2 (two) times a day. clonazePAM (KlonoPIN) 1 mg tablet Take 1 tablet (1 mg total) by mouth 2 (two) times a day. Max Daily Amount: 2 mg cranberry conc-ascorbic acid 4,200-20 mg capsule Take by mouth 2 (two) times a day. DULoxetine (CYMBALTA) [address] capsule Take 2 capsules (120 mg total) by mouth at bedtime. Do not crush or chew. famotidine (PEPCID) 40 mg tablet Take by mouth 1 (one) time each day. furosemide (LASIX) 40 mg tablet Take by mouth 1 (one) time each day. Hold DOS 10- hydrOXYzine HCL (ATARAX) 25 mg tablet Take by mouth if needed. 1-2 at bedtime as needed levETIRAcetam (KEPPRA) 1,000 mg tablet Take by mouth 2 (two) times a day. levothyroxine (Synthroid) 112 mcg tablet Take by mouth 1 (one) time each day. medical marijuana [employer] med 1 each if needed. Topical salve on legs as needed MESALAMINE ORAL Take by mouth at bedtime. methylcellulose (CITRUCEL ORAL) Take by mouth. 2 daily at lunch. Hold for colonoscopy 03-10 multivit/folic acid/vit K1 (WOMEN'S 50 PLUS ADVANCED ORAL) Take by mouth 1 (one) time each day. Centrum Silver Women's vitamin oxyCODONE-acetaminophen (PERCOCET) 5-325 mg per tablet Take by mouth if needed for severe pain. 2 daily as needed. PT takes about one a month potassium chloride (KLOR-CON) 10 mEq CR tablet Take 2 tablets (20 mEq total) by mouth 1 (one) time each day. Tablet may be swallowed whole (do not crush/chew/suck on) OR broken in half and each half swallowed separately OR dissolved (whole tablet) in ~4 ounces of water (allow ~2 minutes to dissolve, stir well and administer immediately). rotigotine 8 mg/[address] on the skin 1 (one) time each day. Review of Systems: The following system(s) were reviewed: GI system reviewed. All other systems were reviewed and are within normal limits. Physical Examination: Visit Vitals Ht 1.626 m (64") Wt 88.5 kg (195 lb) BMI 33.47 kg/m Smoking Status Former BSA 1.94 m General: NAD; Alert and oriented x3 Lungs: Clear without rales, rhonchi or wheezes; no increased respiratory effort Cardiovascular: RRR; no edema Abdomen: Positive bowel sounds; soft; non tender Skin: No rashes; normal turgor Plan: 1) Will proceed with endoscopic procedure as scheduled. Scott Pearson DO [employer] Phone: 1(574) 782-188510-31-2022 History and physical note* PENG Huntley - 03/10/2022 10:00 AM EDT Images from the original note were not included. PENG Huntley [facility] Hospitalists History and Physical Same Day Procedure Patient Name:Sotero Bethea :1950 Admit Date: Physicians: Jaquelin Faustin MD (PCP) Perpetual Assessment: Sotero Bethea is a 71 y.o. female who presented for colonoscopy procedure, per the request of Dr. Pearson. [facility] has been asked to see the patient for a pre-procedure risk assessment evaluation. ASSESSMENT AND PLAN Pre-Op Evaluation - The patient is being evaluated for a low risk procedure - The patient has no symptoms - The patient's functional capacity is unable to be determined. Patient has MS and can only walk short distances and about 3-4 stairs without use of her wheelchair. She does not endorse any chest pain or shortness of breath with ambulation or exertion. - The patient has the following pertinent Revised Cardiac Risk Index Indicators None - Based on the above, the patient is at low risk to proceed for procedure. RCRI Class I risk. - The patient is acceptable to proceed to procedure, with comments/risks as noted above - Other recommendations: Please continue to monitor for respiratory distress through continuous pulse ox, and cardiac rhythm through telemetry both during and after procedure during recovery. Patient's medical records reviewed by me personally. I reviewed and summarized all pertinent radiological studies, EKGs, labs, and medical records (including those from outside hospitals when available and relevant to current clinical situation). Non-Infectious Colitis -Prior colonoscopy 2020 with findings consistent with/concerning for UC. -Was previously experiencing intermittent diarrhea and abdominal cramping. She is now on mesalamineand citrucel which resolved her symptoms. She now complains of constipation. Denies any other bowelconcerns including N/V/D or blood in stool. -Patient has no personal or family history of colon cancer Multiple sclerosis -Follows with [facility] neurology. Not on any current medications, no recent steroid use. -No acute complaints or signs/symptoms of flare Seizures -Well-controlled on Keppra -Last seizure >2 years ago -Continue Keppra treatment and close outpatient follow-up -Monitor closely perioperatively for seizure activity RLS -Has rotigotine patch. Uses medical marijuana topical ointment occaionally, last use several monthsago. -Continue use Heart murmur Leg swellilng -Reports known murmur, unclear on valvular disease -On lasix daily for leg swelling -Denies prior echo -No changes in swelling, cp, sob Vitamin D deficiency -On vitamin D supplementation, continue Depression/anxiety -On Cymbalta, clonazepam, hydroxyzine -Mood stable -Caution against benzo use postoperatively History of Graves' disease -S/P radiation therapy -On Synthroid, continue Obesity -BMI 34.81 -Hard to impliment active lifestyle given patient's condition Comments/Disposition: Post procedure management per primary service HISTORY CC: Colonoscopy HPI: Sotero Bethea is a 71 y.o. female with history of MS, seizures, RLS, heart murmur, vitamin D deficiency, depression/anxiety, arthritis and history of Graves' disease that presented for a colonoscopy. She had a prior colonoscopy in 2020 showing evidence concerning for UC. She was treated medically and her symptoms improved. She doesn't endorse constipation now. No complaints of n/v/d, abdominal pain, f/c. Patient with a MET score unable to be determined. She has extremity weakness due to her MS and is mostly wheelchair bound. She does ambulate some, able to go up 3-4 stairs and walk about 20 feet without her wheelchair. She denies any exertional symptoms with this. Denies chest pain, shortness of breath, fever, chills, nausea, or vomiting. Patient denies any history of CKD, CAD, CHF, CVA, cancer or diabetes. No formal history of obstructive sleep apnea. No personal history of unexplained fall, loss of consciousness or syncope in the last 6 months. No personal or familial history of bleeding orclotting disorders. No recent use of NSAIDs or antiplatelet therapy. ROS: > > > > > > > > > > The following system(s) were reviewed. Pertinent positive and negative findings are noted in the HPI. [x] Const [x] ENT [x] CV [x] [x] Musc [x] Psych [x] Allergy [x] Eyes [x] Resp [x] GI [x] Neuro [x] Skin [x] Endo [x] Heme/Lymph PMH/PSH/SH/FH: Past Medical History: Diagnosis Date H/O Graves' disease treated Heart murmur Medical cannabis use Uses a topical salve MS (multiple sclerosis) (CMS/HCC) Restless leg syndrome Seizure (CMS/HCC) Well controlled on Kepra Urinary incontinence Past Surgical History: Procedure Laterality Date ADENOIDECTOMY APPENDECTOMY 06/26/2021 gangrenous & ruptured BLADDER SUSPENSION CATARACT EXTRACTION Bilateral COLONOSCOPY DILATION AND CURETTAGE OF UTERUS Multiple HYSTERECTOMY TONSILLECTOMY No pertinent family history. Social History Socioeconomic History Marital status: Spouse name: Not on file Number of children: Not on file Years of education: Not on file Highest education level: Not on file Occupational History Not on file Tobacco Use Smoking status: Former Packs/day: 1.00 Years: 20.00 Pack years: 20.00 Types: Cigarettes Smokeless tobacco: Never Vaping Use Vaping Use: Never used Substance and Sexual Activity Alcohol use: Not Currently Drug use: Yes Types: Marijuana/Cannabis Comment: Cannabis topical salve-medical marijuana card Sexual activity: Not on file Other Topics Concern Not on file Social History Narrative Not on file Allergy Information: I have reviewed the patient's allergies. Nitrofurantoin, Teriflunomide, Glatiramer (copolymer 1), Tetracyclines, and Adhesive tape-silicones Home Medications: Prior to Admission medications Medication Sig Start Date End Date Taking? Authorizing Provider cholecalciferol (VITAMIN D-3) 50 mcg (2,000 unit) tablet Take 1 tablet (2,000 Units total) by mouth2 (two) times a day. Historical ProviderMD clonazePAM (KlonoPIN) 1 mg tablet Take 1 tablet (1 mg total) by mouth 2 (two) times a day. Max Daily Amount: 2 mg Historical ProviderMD cranberry conc-ascorbic acid 4,200-20 mg capsule Take by mouth 2 (two) times a day. Historical ProviderMD DULoxetine (CYMBALTA) [address] capsule Take 2 capsules (120 mg total) by mouth at bedtime. Do not crush or chew. Historical Provider, famotidine (PEPCID) 40 mg tablet Take by mouth 1 (one) time each day. Historical Provider, furosemide (LASIX) 40 mg tablet Take by mouth 1 (one) time each day. Hold DOS 03-10 Historical ProviderMD hydrOXYzine HCL (ATARAX) 25 mg tablet Take by mouth if needed. 1-2 at bedtime as needed Historical Provider, levETIRAcetam (KEPPRA) 1,000 mg tablet Take by mouth 2 (two) times a day. Historical Provider, levothyroxine (Synthroid) 112 mcg tablet Take by mouth 1 (one) time each day. Historical Provider, medical marijuana [employer] med 1 each if needed. Topical salve on legs as needed Historical ProviderMD MESALAMINE ORAL Take by mouth at bedtime. Historical Provider, methylcellulose (CITRUCEL ORAL) Take by mouth. 2 daily at lunch. Hold for colonoscopy 03-10 Historical ProviderMD multivit/folic acid/vit K1 (WOMEN'S 50 PLUS ADVANCED ORAL) Take by mouth 1 (one) time each day. Centrum Silver Women's vitamin Historical ProviderMD oxyCODONE-acetaminophen (PERCOCET) 5-325 mg per tablet Take by mouth if needed for severe pain. 2 daily as needed. PT takes about one a month Historical ProviderMD potassium chloride (KLOR-CON) 10 mEq CR tablet Take 2 tablets (20 mEq total) by mouth 1 (one) time each day. Tablet may be swallowed whole (do not crush/chew/suck on) OR broken in half and each half swallowed separately OR dissolved (whole tablet) in ~4 ounces of water (allow ~2 minutes to dissolve, stir well and administer immediately). Historical ProviderMD rotigotine 8 mg/[address] on the skin 1 (one) time each day. Historical ProviderMD PHYSICAL EXAMINATION > > > > > > > > Vital Signs: Temp: 36.8 C (98.3 F) (03/10 1024) Heart Rate: 86 (03/10 1024) Resp: 12 (03/10 1024) BP: 151/73 (03/10 1024) GENERAL: NAD, Vitals stable EYES: Conjunctiva and sclera clear, No redness or discharge ENT: Hearing intact. Pharynx clear. NECK: No adenopathy or thyromegaly. CV: RRR, no murmur. No JVD. RESP: Clear, no rales, rhonchi, wheezes or increase in respiratory effort, no use of accessory muscles. GI: Obese. Non-distended, hyperactive BS, soft, non-tender. No guarding, masses or rebound MUSC: Normal ROM without deformity. SKIN: Warm and dry. No rashes. No pedal edema NEURO: Alert, Ox3. Generalized extremity weakness. Grossly normal sensory exam. No focal deficits. PSYCH: Mood and affect are appropriate. Cooperative. Laboratory and Additional Data Acquired or Reviewed: [x] Laboratory [x] Radiology [x] Cardiology [x] Medications [x] Transcriptions [x] Microbiology [x] Outside Records [] [facility] Phone: [phone] History and physical note* Scott Pearson, - 03/10/2022 10:00 AM EDT Images from the original note were not included. GASTROENTEROLOGY OUTPATIENT PRE-PROCEDURE NOTE Patient Name: Sotero Bethea MR #: [id number] Indication: Colitis Brief History: 71F w/ history of colitis consistent with possible UC on prior colonoscopy in 2020 now on mesalamine here for disease reassessment. Past Medical History: Past Medical History: Diagnosis Date H/O Graves' disease treated Heart murmur Medical cannabis use Uses a topical salve MS (multiple sclerosis) (CMS/HCC) Restless leg syndrome Seizure (CMS/HCC) Well controlled on Kepra Urinary incontinence Past Surgical History: Procedure Laterality Date ADENOIDECTOMY APPENDECTOMY 06/26/2021 gangrenous & ruptured BLADDER SUSPENSION CATARACT EXTRACTION Bilateral COLONOSCOPY DILATION AND CURETTAGE OF UTERUS Multiple HYSTERECTOMY TONSILLECTOMY No family history on file. Social History Socioeconomic History Marital status: Spouse name: Not on file Number of children: Not on file Years of education: Not on file Highest education level: Not on file Occupational History Not on file Tobacco Use Smoking status: Former Packs/day: 1.00 Years: 20.00 Pack years: 20.00 Types: Cigarettes Smokeless tobacco: Never Vaping Use Vaping Use: Never used Substance and Sexual Activity Alcohol use: Not Currently Drug use: Yes Types: Marijuana/Cannabis Comment: Cannabis topical salve-medical marijuana card Sexual activity: Not on file Other Topics Concern Not on file Social History Narrative Not on file Allergies: Nitrofurantoin, Teriflunomide, Glatiramer (copolymer 1), Tetracyclines, and Adhesive tape-silicones Home Medications: Home Medications cholecalciferol (VITAMIN D-3) 50 mcg (2,000 unit) tablet Take 1 tablet (2,000 Units total) by mouth2 (two) times a day. clonazePAM (KlonoPIN) 1 mg tablet Take 1 tablet (1 mg total) by mouth 2 (two) times a day. Max Daily Amount: 2 mg cranberry conc-ascorbic acid 4,200-20 mg capsule Take by mouth 2 (two) times a day. DULoxetine (CYMBALTA) [address] capsule Take 2 capsules (120 mg total) by mouth at bedtime. Do not crush or chew. famotidine (PEPCID) 40 mg tablet Take by mouth 1 (one) time each day. furosemide (LASIX) 40 mg tablet Take by mouth 1 (one) time each day. Hold DOS 10- hydrOXYzine HCL (ATARAX) 25 mg tablet Take by mouth if needed. 1-2 at bedtime as needed levETIRAcetam (KEPPRA) 1,000 mg tablet Take by mouth 2 (two) times a day. levothyroxine (Synthroid) 112 mcg tablet Take by mouth 1 (one) time each day. medical marijuana [employer] med 1 each if needed. Topical salve on legs as needed MESALAMINE ORAL Take by mouth at bedtime. methylcellulose (CITRUCEL ORAL) Take by mouth. 2 daily at lunch. Hold for colonoscopy 10-31 multivit/folic acid/vit K1 (WOMEN'S 50 PLUS ADVANCED ORAL) Take by mouth 1 (one) time each day. Centrum Silver Women's vitamin oxyCODONE-acetaminophen (PERCOCET) 5-325 mg per tablet Take by mouth if needed for severe pain. 2 daily as needed. PT takes about one a month potassium chloride (KLOR-CON) 10 mEq CR tablet Take 2 tablets (20 mEq total) by mouth 1 (one) time each day. Tablet may be swallowed whole (do not crush/chew/suck on) OR broken in half and each half swallowed separately OR dissolved (whole tablet) in ~4 ounces of water (allow ~2 minutes to dissolve, stir well and administer immediately). rotigotine 8 mg/[address] on the skin 1 (one) time each day. Review of Systems: The following system(s) were reviewed: GI system reviewed. All other systems were reviewed and are within normal limits. Physical Examination: Visit Vitals Ht 1.626 m (64") Wt 88.5 kg (195 lb) BMI 33.47 kg/m Smoking Status Former BSA 1.94 m General: NAD; Alert and oriented x3 Lungs: Clear without rales, rhonchi or wheezes; no increased respiratory effort Cardiovascular: RRR; no edema Abdomen: Positive bowel sounds; soft; non tender Skin: No rashes; normal turgor Plan: 1) Will proceed with endoscopic procedure as scheduled. Scott Pearson DO * PENG Huntley - 03/10/2022 10:00 AM EDT Images from the original note were not included. PENG Huntley [facility] History and Physical Same Day Procedure Patient Name:Sotero Bethea :1950 Admit Date: Physicians: Jaquelin Faustin MD (PCP) Perpetual Assessment: Sotero Bethea is a 71 y.o. female who presented for colonoscopy procedure, per the request of Dr. Pearson. [facility] has been asked to see the patient for a pre-procedure risk assessment evaluation. ASSESSMENT AND PLAN Pre-Op Evaluation - The patient is being evaluated for a low risk procedure - The patient has no symptoms - The patient's functional capacity is unable to be determined. Patient has MS and can only walk short distances and about 3-4 stairs without use of her wheelchair. She does not endorse any chest pain or shortness of breath with ambulation or exertion. - The patient has the following pertinent Revised Cardiac Risk Index Indicators None - Based on the above, the patient is at low risk to proceed for procedure. RCRI Class I risk. - The patient is acceptable to proceed to procedure, with comments/risks as noted above - Other recommendations: Please continue to monitor for respiratory distress through continuous pulse ox, and cardiac rhythm through telemetry both during and after procedure during recovery. Patient's medical records reviewed by me personally. I reviewed and summarized all pertinent radiological studies, EKGs, labs, and medical records (including those from outside hospitals when available and relevant to current clinical situation). Non-Infectious Colitis -Prior colonoscopy 2020 with findings consistent with/concerning for UC. -Was previously experiencing intermittent diarrhea and abdominal cramping. She is now on mesalamineand citrucel which resolved her symptoms. She now complains of constipation. Denies any other bowelconcerns including N/V/D or blood in stool. -Patient has no personal or family history of colon cancer Multiple sclerosis -Follows with [facility] neurology. Not on any current medications, no recent steroid use. -No acute complaints or signs/symptoms of flare Seizures -Well-controlled on Keppra -Last seizure >2 years ago -Continue Keppra treatment and close outpatient follow-up -Monitor closely perioperatively for seizure activity RLS -Has rotigotine patch. Uses medical marijuana topical ointment occaionally, last use several monthsago. -Continue use Heart murmur Leg swellilng -Reports known murmur, unclear on valvular disease -On lasix daily for leg swelling -Denies prior echo -No changes in swelling, cp, sob Vitamin D deficiency -On vitamin D supplementation, continue Depression/anxiety -On Cymbalta, clonazepam, hydroxyzine -Mood stable -Caution against benzo use postoperatively History of Graves' disease -S/P radiation therapy -On Synthroid, continue Obesity -BMI 34.81 -Hard to impliment active lifestyle given patient's condition Comments/Disposition: Post procedure management per primary service HISTORY CC: Colonoscopy HPI: Sotero Bethea is a 71 y.o. female with history of MS, seizures, RLS, heart murmur, vitamin D deficiency, depression/anxiety, arthritis and history of Graves' disease that presented for a colonoscopy. She had a prior colonoscopy in 2020 showing evidence concerning for UC. She was treated medically and her symptoms improved. She doesn't endorse constipation now. No complaints of n/v/d, abdominal pain, f/c. Patient with a MET score unable to be determined. She has extremity weakness due to her MS and is mostly wheelchair bound. She does ambulate some, able to go up 3-4 stairs and walk about 20 feet without her wheelchair. She denies any exertional symptoms with this. Denies chest pain, shortness of breath, fever, chills, nausea, or vomiting. Patient denies any history of CKD, CAD, CHF, CVA, cancer or diabetes. No formal history of obstructive sleep apnea. No personal history of unexplained fall, loss of consciousness or syncope in the last 6 months. No personal or familial history of bleeding orclotting disorders. No recent use of NSAIDs or antiplatelet therapy. ROS: > > > > > > > > > > The following system(s) were reviewed. Pertinent positive and negative findings are noted in the HPI. [x] Const [x] ENT [x] CV [x] [x] Musc [x] Psych [x] Allergy [x] Eyes [x] Resp [x] GI [x] Neuro [x] Skin [x] Endo [x] Heme/Lymph PMH/PSH/SH/FH: Past Medical History: Diagnosis Date H/O Graves' disease treated Heart murmur Medical cannabis use Uses a topical salve MS (multiple sclerosis) (CMS/HCC) Restless leg syndrome Seizure (CMS/HCC) Well controlled on Kepra Urinary incontinence Past Surgical History: Procedure Laterality Date ADENOIDECTOMY APPENDECTOMY 06/26/2021 gangrenous & ruptured BLADDER SUSPENSION CATARACT EXTRACTION Bilateral COLONOSCOPY DILATION AND CURETTAGE OF UTERUS Multiple HYSTERECTOMY TONSILLECTOMY No pertinent family history. Social History Socioeconomic History Marital status: Spouse name: Not on file Number of children: Not on file Years of education: Not on file Highest education level: Not on file Occupational History Not on file Tobacco Use Smoking status: Former Packs/day: 1.00 Years: 20.00 Pack years: 20.00 Types: Cigarettes Smokeless tobacco: Never Vaping Use Vaping Use: Never used Substance and Sexual Activity Alcohol use: Not Currently Drug use: Yes Types: Marijuana/Cannabis Comment: Cannabis topical salve-medical marijuana card Sexual activity: Not on file Other Topics Concern Not on file Social History Narrative Not on file Allergy Information: I have reviewed the patient's allergies. Nitrofurantoin, Teriflunomide, Glatiramer (copolymer 1), Tetracyclines, and Adhesive tape-silicones Home Medications: Prior to Admission medications Medication Sig Start Date End Date Taking? Authorizing Provider cholecalciferol (VITAMIN D-3) 50 mcg (2,000 unit) tablet Take 1 tablet (2,000 Units total) by mouth2 (two) times a day. Historical Provider, clonazePAM (KlonoPIN) 1 mg tablet Take 1 tablet (1 mg total) by mouth 2 (two) times a day. Max Daily Amount: 2 mg Historical Provider, cranberry conc-ascorbic acid 4,200-20 mg capsule Take by mouth 2 (two) times a day. Historical Provider, DULoxetine (CYMBALTA) [address] capsule Take 2 capsules (120 mg total) by mouth at bedtime. Do not crush or chew. Historical Provider, famotidine (PEPCID) 40 mg tablet Take by mouth 1 (one) time each day. Historical Provider, furosemide (LASIX) 40 mg tablet Take by mouth 1 (one) time each day. Hold DOS 03-10 Historical Provider, hydrOXYzine HCL (ATARAX) 25 mg tablet Take by mouth if needed. 1-2 at bedtime as needed Historical Provider, levETIRAcetam (KEPPRA) 1,000 mg tablet Take by mouth 2 (two) times a day. Historical Provider, levothyroxine (Synthroid) 112 mcg tablet Take by mouth 1 (one) time each day. Historical Provider, medical marijuana YAC[employer] med 1 each if needed. Topical salve on legs as needed Historical Provider, MESALAMINE ORAL Take by mouth at bedtime. Historical Provider, methylcellulose (CITRUCEL ORAL) Take by mouth. 2 daily at lunch. Hold for colonoscopy 03-10 Historical Provider, multivit/folic acid/vit K1 (WOMEN'S 50 PLUS ADVANCED ORAL) Take by mouth 1 (one) time each day. Centrum Silver Women's vitamin Historical Provider, oxyCODONE-acetaminophen (PERCOCET) 5-325 mg per tablet Take by mouth if needed for severe pain. 2 daily as needed. PT takes about one a month Historical Provider, potassium chloride (KLOR-CON) 10 mEq CR tablet Take 2 tablets (20 mEq total) by mouth 1 (one) time each day. Tablet may be swallowed whole (do not crush/chew/suck on) OR broken in half and each half swallowed separately OR dissolved (whole tablet) in ~4 ounces of water (allow ~2 minutes to dissolve, stir well and administer immediately). Historical Provider, rotigotine 8 mg/[address] on the skin 1 (one) time each day. Historical Provider, PHYSICAL EXAMINATION > > > > > > > > Vital Signs: Temp: 36.8 C (98.3 F) (03/10 1024) Heart Rate: 86 (03/10 1024) Resp: 12 (03/10 1024) BP: 151/73 (03/10 1024) GENERAL: NAD, Vitals stable EYES: Conjunctiva and sclera clear, No redness or discharge ENT: Hearing intact. Pharynx clear. NECK: No adenopathy or thyromegaly. CV: RRR, no murmur. No JVD. RESP: Clear, no rales, rhonchi, wheezes or increase in respiratory effort, no use of accessory muscles. GI: Obese. Non-distended, hyperactive BS, soft, non-tender. No guarding, masses or rebound MUSC: Normal ROM without deformity. SKIN: Warm and dry. No rashes. No pedal edema NEURO: Alert, Ox3. Generalized extremity weakness. Grossly normal sensory exam. No focal deficits. PSYCH: Mood and affect are appropriate. Cooperative. Laboratory and Additional Data Acquired or Reviewed: [x] Laboratory [x] Radiology [x] Cardiology [x] Medications [x] Transcriptions [x] Microbiology [x] Outside Records [] [facility] encounterP[facility] [id number] Procedure note* Jacklyn Tucker RN - 03/10/2022 10:00 AM EDT Pt and family verbalize understanding of d/c instructions. To lobby per wheelchair. [id number] Procedure note* Jacklyn Tucker RN - 03/10/2022 10:00 AM EDT Pt and family verbalize understanding of d/c instructions. To lobby per wheelchair. documented in this encounterP[facility] [id number] History of Present illness Narrative* Maria E Baca, SUPERINTENDENT PRESSURE - 12/10/2020 9:35 AM EDT IMPRESSIONS Sotero Bethea is a 70 y.o. female with Relapsing form of MS DISEASE STATUS Clinical Relapse 1987 1988 B ON leg weakness other exacerbations in the Subjective worsening no Exam worsening no MRI Head 06/14/18 Cspine 05/14/18 Tspine 05/14/18 MRI Changes Number of New lesions: DMT (current at bottom of list) interferon beta-1a intramuscular glatiramer acetate teriflunomide mood issues SOB nausea and weight loss nothing since 2013 Disease Course Relapsing form of MS without activity (no recent relapse and no new MRI lesions) without progression (slow progressive accumulation of neurological dysfunction independant of relapses) stable Disease Management Sotero Bethea remains clinically stable off DMT. She has not had any seizures. she is carefully following CDC guidelines regarding COVID-19 precautions. Plan: Disease Modifying Treatment: Continue to monitor Testing related to MS Lab: VitD with next blood draw Symptom management : Plan: Fatigue: None Bladder: None Gait: Yes imbalance, uses rollator and decreased stamina and Treatment: none mild Spasticity: Yes, location: bilateral legs low back Treatment: CBD ointment Response to treatment Good Depression: None History of Vitamin D deficiency: Will monitor level and adjust supplementation accordingly. seizure: Con't Keppra 1000mg BID Not exercising regularly, advised starting self directed exercise (4-5/week >20 minutes), such as yoga, walking, etc. Sz description speech arrest, recurrent visual episodes. She no longer has those but has generalized tonic clonic seizures only now. 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 3 in winter 2017 MR head 2014 ? DNET L temporal EEG 2000 normal electrical activity SUDEP disc/Sz safety yes, seizure/SUDEP education, written/verbal Safety issues doesn't drive Seizure med(s) Keppra 1000mg QAM and 750mg QHS, clonazepam 1.0mg BID Previous rx carbamazepine (Tegretol), valproic acid (Depakote) phenytoin (Dilantin) 200mg qhs Social History Tobacco Use Smoking Status Former Smoker Packs/day: 1.00 Years: 20.00 Pack years: 20.00 Types: Cigarettes Smokeless Tobacco Never Used Tobacco Comment Quit 20 years Not smoking Return in about 9 months (around 09/09/2021) for with Bubba Sims MD for MS. This note was partially created using voice recognition software and is inherently subject to errors including those of syntax and "sound-alike" substitutions which may escape proofreading. In such instances, original meaning may be extrapolated by contextual derivation. DISEASE SUMMARY Review of Neuroimmunological Disease Review of Neuroimmunological Disease Primary Neurological Diagnosis: Relapsing form of MS Date of Symptom Onset: 05/11/1987 Year of diagnosis: 2000 Relapse History 1987 1988 B ON leg weakness other exacerbations in the Most Recent EDSS: Year of insidious progression: Time on DMT Month Year Month Year Multiple-Sclerosis -Disease-Modifying Therapies interferon beta-1a intramuscular glatiramer acetate teriflunomide Start: 2000 2001 2013 Stop: 2001 2001 2013 Multiple-Sclerosis - Disease-Modifying Therapies interferon beta-1a intramuscular glatiramer acetate teriflunomide mood issues SOB nausea and weight loss nothing since 2013 Most Recent MRI Brain: 06/14/18 Most Recent MRI Cervical Spine: 05/14/18 Most Recent MRI Thoracic Spine: 05/14/18 MRI Changes Number of New lesions: Most Recent OCT: 09/02/17 CSF Studies: OCB: yes Other Testing: hx of seizures Ethnicity: Dominant Hand: Right Highest Level of education (in years): No flowsheet data found. MS Path NeuroQOL 07/07/2018 UE 43.47 LE 32.52 Sleep 54.58 Fatigue 50.36 Anxiety 45.93 Depression 49.44 Stigma 64.21 Posititve Affect-Well Being 48.38 Cognitive Function 51.09 Ability Participate Social Roles 40.32 Satisfaction Social Roles 40.61 Emotional Behavioral Dyscontrol 45.21 Interval History CC: MS/other demyelinating f/u. Sotero Bethea is here for follow up for her MS/other demyelinating disorder. Life changes: had a great time skydiving recently Medical history/non-MS medication changes: no Since last visit, she had no relapses or progression of symptoms. MS symptom inventory: Review of systems performed by the WRAPPER LAYER/medical oncology physician, personally reviewed and viewable in the current patient encounter. Pertinent positive and negative findings detailed in HPI. Current disease modifying therapy: (nothing) Pertinent data reviewed: I reviewed most recent MRI reports, labs and neurologist's previous note. Past Medical History: Diagnosis Date Arthritis Back pain Bladder problem Chronic pain disorder Depression Headache Hypothyroidism Lupus (HCC) Multiple sclerosis (HCC) PAD (peripheral artery disease) (HCC) RIGHT LEG Patient denies medical problems Seizures (HCC) LAST SEIZURE 06/2017 Past Surgical History: Procedure Laterality Date BLADDER SURGERY DILATION AND CURETTAGE OF UTERUS EYE SURGERY ELI CATARACTS HYSTERECTOMY total TONSILLECTOMY Social History Tobacco Use Smoking status: Former Smoker Packs/day: 1.00 Years: 20.00 Pack years: 20.00 Types: Cigarettes Smokeless tobacco: Never Used Tobacco comment: Quit 20 years Vaping Use Vaping Use: Never used Substance Use Topics Alcohol use: No Drug use: No History reviewed. No pertinent family history. 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 Pt told not to take anymore took for 9 months for sore throat; told not to take it again Tetracyclines Adhesive Tape-Silicones Rash Current Outpatient Medications Medication Sig Dispense Refill acetaminophen (TYLENOL EXTRA STRENGTH) 500 MG tablet Take 500 mg by mouth every 6 (six) hours as needed for pain . cholecalciferol, vitamin D3, (VITAMIN D3) 2,000 unit cap Take 2,000 Units by mouth 2 (two) times a day . clonazePAM (KLONOPIN) 1 MG tablet Take 1 mg by mouth 2 (two) times a day Reasons: TAKE DOS for seizures. clotrimazole (LOTRIMIN) 1 % cream Apply topically 2 (two) times a day . cranberry fruit extract (CRANBERRY ORAL) Take by mouth 2 (two) times a day . DULoxetine (CYMBALTA) 60 MG capsule Take 60 mg by mouth nightly Reasons: Disorder characterized by Stiff, Tender & Painful Muscles, major depressive disorder, 2 TABS HS. famotidine (PEPCID) 40 MG tablet Take 40 mg by mouth daily . furosemide (LASIX) 40 MG tablet Take 40 mg by mouth daily . hydrOXYzine (ATARAX) 25 MG tablet Take 25 mg by mouth 3 (three) times a day as needed for itching . levETIRAcetam (KEPPRA) 500 MG tablet 2 PO QAM and 2 PO QHS . 360 tablet 3 levothyroxine (SYNTHROID, LEVOTHROID) 125 MCG tablet Take 120 mcg by mouth at bedtime Mon-Sat / tab Sun Reasons: TAKE DOS. mesalamine (LIALDA) 1.2 g EC tablet Take 1,200 mg by mouth daily with breakfast . snwcgdzv-sav-tcuq-FA-lutein (CENTRUM SILVER WOMEN) 8 mg iron-400 mcg-300 mcg Tab Take 1 tablet by mouth daily. oxyCODONE (Xtampza ER) 9 mg 12 hr capsule sprinkle Take 9 mg by mouth For low back pain . potassium chloride 10 MEQ CR tablet Take 10 mEq by mouth daily . rotigotine (NEUPRO) 8 mg/[address] on the skin Reasons: Extreme Discomfort in Calves when Sitting or Lying Down. clobetasol (TEMOVATE) 0.05 % cream Apply topically 2 (two) times a day PRN . lactobacillus combo no.6 (PROBIOTIC COMPLEX ORAL) Take 40 Billion Units by mouth 2 (two) times a day . spironolactone (ALDACTONE) 50 MG tablet Take 50 mg by mouth 2 (two) times a day . UNABLE TO FIND Cannabis cream . No current facility-administered medications for this visit. EXAMINATION BP 104/73 Pulse 99 Ht 5' 4" Wt 79.4 kg (175 lb) BMI 30.04 kg/m [facility] MULTIPLE SCLEROSIS PERFORMANCE TEST CLINICAL TESTING VALUE Binocular Visual acuity (Hi: range 13-60, median 59) (Lo: range 0-55, median 32) Low Contrast: High Contrast: Symbol Digit Modality Test (range 4-86, Median 46) Total Number Correct: Nine Hole Peg Test (range 13.4-8.3; median 26.5) Right Hand Avg (seconds): SEE BELOW Left Hand Avg (seconds): Dominant Hand: Timed 25 Foot Walk (range 0.1-52.47; Median without aid 7.1) Average Trial Time (seconds): SEE BELOW AFO Choice: Walking Aid Choice: MULTIPLE SCLEROSIS SPECIFIC MEASURES VALUE Visual acuity OD: 20/30 pinhole OS: 20/40 pinhole Timed 25 Foot Walk (Today's data) Trial 1: 6.31 with rollator Trial 2: 5.88 with rollator 9 Hole Peg test (Today's data) Right 1st: 19.87 Right 2nd: 22.66 Left 1st: 31.25 Left 2nd: 21.66 Mental Status: orientation, attention span, concentration, memory (recent/remote), language(fluency, comprehension, etc.) and fund of knowledge (awareness of current events, past history, vocabulary)all intact. Cranial nerve examination: Pupils PERRL full to confrontation. Extra occular movements intact without nystagmus Sensation and strength are intact and symmetric Hearing grossly intact. Speech normal/no dysarthria Palate, tongue and shrug are normal and symmetric. Motor examination: Normal bulk and tone. Muscle strength: D B T FF IO HF KF KE DF PF Right 5 5 5 5 5 5 5 5 5 5 Left 5 5 5 5 5 5 5 5 5 5 DTR: B T BR Pat Ankle Ankle Clonus Plantar Resp Cross Adductor Right 3 3 3 3 3 Left 3 3 3 3 3 Sensory examination: light touch normal in all four extremities, vibration decreased L ankle and temperature normal in all four extremities Coordination: Normal fine finger movements and [id number]-[id number] maneuvers bilaterally. Gait examination: with rollator Romberg testing: patient is stable with eyes open and closed Cerebral FSS 0 - normal Visual FSS OD: 20/30 pinhole OS: 20/40 pinhole 2 - worse eye with scotoma with maximal visual acuity of 20/30 to 20/59; corrected Brainstem FSS 0 - Normal Pyramidal FSS 0 - normal Sensory FSS 1 - vibration or figure-writing decrease in one of two limbs Cerebellar FSS 0 - normal Ambulation FSS 5 - requires bilateral support (cane, crutches or walker) and walks 25 feet in 25 seconds or less Bowel/Bladder FSS 0 - Normal Estimated EDSS Step 6.5 - Constant bilateral assistance (canes, crutches, or braces) required to walk about 20 meters (65 ft.). Warmest regards, Maria E Baca CNP A total of 35 minutes was spent today pre-charting, in [id number] time with the patient and post-charting to manage the patient's care as documented above. * Palak Delgadillo LPN - 12/10/2020 9:16 AM EDT Symptom Present/treatment notes Depression ("Do you have or are you treated for depression?") No Anxiety ("Do you have or are you treated for anxiety?") No Fatigue None Cognition/Memory no Urinary None Bowel yes Gait/balance Yes imbalance and decreased stamina Gait distance not limited Stiffness/spasms Yes, location: bilateral legs low back Numbness Yes, location: L arm bilateral hands feet Pain Yes, location: low back Weakness Yes, location: bilateral legs Swallowing no Speech no Vision no Sexual dysfunction no Seizures no Dizziness/vertigo no Other no Exercise No Worklife Retired documented in this encounterOhioHealthEvaluation note* Diagnosis Multiple sclerosis (HCC)- Primary Multiple sclerosis Vitamin D deficiency Seizure (HCC) Other convulsions [facility]* Diagnosis Noninfectious gastroenteritis, unspecified type- Primary [facility]No assessment information availableWSt. [facility] Work Phone: Evaluation note* Diagnosis Onset Date Resolution Status Epilepsy acute Low back pain acute Multiple sclerosis noneactiv e [facility] Work Phone: Evaluation note* Diagnosis MS (multiple sclerosis) (HCC)- Primary Multiple sclerosis [facility] (n[facility])No reason for referral information availableWSt. Anthony's Hospital Work Phone: Assessments Diagnosis Impaired functional mobility , balance, gait, and endurance Other fatigue Multiple sclerosis (HCC) Multiple sclerosis Diagnosis Impaired functional mobility , balance, gait, and endurance Other fatigue Multiple sclerosis (HCC) Multiple sclerosis Diagnosis Multiple sclerosis (HCC) Multiple sclerosis Impaired functional mobility , balance, gait, and endurance Other fatigue Diagnosis Multiple sclerosis (HCC) - P rimary Multiple sclerosis Disorder of visual pathway Vitamin D deficiency disease Unspecified vitamin D deficiency Partial symptomatic epilepsy with complex partial seizures, not intractable, without status epilepticus (HCC) Diagnosis Impaired functional mobility , balance, gait, and endurance Other fatigue Multiple sclerosis (HCC) Multiple sclerosis Diagnosis Impaired functional mobility , balance, gait, and endurance Other fatigue Multiple sclerosis (HCC) Multiple sclerosis Diagnosis Impaired functional mobility , balance, gait, and endurance Other fatigue Multiple sclerosis (HCC) Multiple sclerosis Diagnosis Neuropathy Mononeuritis of unspecified site Diagnosis HNP (herniated nucleus pulposus), cervical- Primary Displacement of cervical intervertebral disc without myelopathy Cervical radiculopathy Brachial neuritis or radiculitis nos Cervical spinal stenosis Spinal stenosis in cervical region Multiple sclerosis (HCC) Multiple sclerosis Diagnosis HNP (herniated nucleus pulposus), cervical Displacement of cervical intervertebral disc without myelopathy Cervical radiculopathy Brachial neuritis or radiculitis nos Cervical spinal stenosis Spinal stenosis in cervical region Multiple sclerosis (HCC) Multiple sclerosis Diagnosis Multiple sclerosis (HCC) Multiple sclerosis Diagnosis Seizure (HCC)- Primary Other convulsions Multiple sclerosis (HCC) Multiple sclerosis Vitamin D deficiency Diagnosis Multiple sclerosis (HCC) Multiple sclerosis Vitamin D deficiency Convulsions, unspecified convulsion type (HCC) Diagnosis Multiple sclerosis (HCC)- Primary Multiple sclerosis Summary Purpose Family History No Family History Records FoundNo Family History Records FoundNo Family History Records FoundNo Family History Records FoundNo Family History Records FoundNo Family History Records FoundNo Family History Records Found Advance Directives No Advanced Directives Records FoundDocuments on File Type Date Recorded Patient Machine Guide Base Winder Expl anation Advance Directives and Livin g Will 06/14/2018 12:00 AM Documents on File Type Date Recorded Patient Machine Guide Base Winder Expl anation Advance Directives and Livin g Will 03/30/2019 12:00 AM Latest Code Status on File Code Status Date Activated Date Inactivated Comments Full Code - Default 03/10/2022 9:26 AM 03/14/2022 3:50 AM This is order is used when code status has not been discussed with the patient, or code status is otherwise unknown/unconfirmed To update the patient's code status, place a code status order. Do not modify or discontinue any currently active code status orders. Documents on File Type Date Recorded Patient Machine Guide Base Winder Expl anation Advance Directives and Living Will 03/30/2019 Reason for Referral Status Reason Specialty Diagnoses / Procedures Referred By Contact Referred To Contact Authorized Radiology Diagnoses HNP (herniated nucleus pulposus), cervical Cervical radiculopathy Cervical spinal stenosis Multiple sclerosis (HCC) Procedures MR Thoracic Spine Without Contrast Meet Gastelum MD [address] [place] [address] [address] [place] [address] Status Reason Specialty Diagnoses / Procedures Referred By Contact Referred To Contact Authorized Radiology Diagnoses HNP (herniated nucleus pulposus), cervical Cervical radiculopathy Cervical spinal stenosis Multiple sclerosis (HCC) Procedures MR Cervical Spine Without Contrast Meet Gastelum MD [address] [place] [address] [address] [place] [id number] Status Reason Specialty Diagnoses / Procedures Referre d By Contact Referred To Contact Closed Radiology Diagnoses HNP (herniated nucleus pulposus), cervical Cervical radiculopathy Cervical spinal stenosis Multiple sclerosis (HCC) Procedures MR Cervical Spine Without Contrast Meet Gastelum MD [address] [place] [address] [address] [place] [address] Status Reason Specialty Diagnoses / Procedures Referre d By Contact Referred To Contact Closed Radiology Diagnoses HNP (herniated nucleus pulposus), cervical Cervical radiculopathy Cervical spinal stenosis Multiple sclerosis (HCC) Procedures MR Thoracic Spine Without Contrast Meet Gastelum MD [address] [place] [address] [address] [place] [address] Status Reason Specialty Diagnoses / Procedures Referre d By Contact Referred To Contact Closed Radiology Diagnoses Multiple sclerosis (HCC) Procedures MR Brain With And Without Contrast Maria E Baca, SUPERINTENDENT PRESSURE [address] [facility] [address] [place] [address] Specialty Diagnoses / Procedures Referred By Contac t Referred To Contact Diagnoses Noninfective gastroenteritis and colitis, unspecified Procedures COLONOSCOPY Anesthesia - MAC; [facility] ENDOSCOPY Scott Pearson, DO [address] [place] [address] [facility] Referral ID Status Reason Start Date Expiration Date V isits Requested Visits Authorized [id number] Authorized 02/18/2022 08/17/2022 1 1 Specialty Diagnoses / Procedures Referred By Maurice t Referred To Contact Neurology Diagnoses MS (multiple sclerosis) ([facility]) Jaquelin Faustin MD [address] [place] [address] [facility] [place] Referral ID Status Reason Start Date Expiration Date V isits Requested Visits Authorized [id number] Authorized 09/18/2023 09/17/2024 1 1 History of Present Illness * Meet Gastelum MD - 05/06/2018 8:34 AM EST See Dictation. in this encounter* Meet Gastelum MD - 05/16/2018 2:16 PM EST See Dictation. in this encounter* Maria E Baca CNP - 10/18/2018 12:27 PM EDT IMPRESSIONS Sotero Bethea is a 68 y.o. female with Relapsing form of MS DISEASE STATUS Clinical Relapse 1987 B ON, 1988 leg weakness, others 90's Subjective worsening no Exam worsening no MRI 06/14/18(no change from at least 2013) Overall stable Disease Management Roz Bethea is here sooner than planned because of some episodes that might have been breakthrough seizure activity. She has a seizure history and in the past few months she has had a few episodes that possibly were seizures (see below for details). Her Keppra was increased to 1000mg QAM and 750mg QHS and she is doing well now. She has not driven in years. She has remained clinically stable without being on any MS DMT for many years. with those. Her biggest MS complaint was her imbalance. She purchased special socks and insoles that have significantly improved that so she is very happy. Plan: Disease Modifying Treatment: None indicated Testing related to MS Lab: VitD with next blood draw Symptom management : Plan: Fatigue: Yes. Type: mixed (decreased energy and sleepiness) Treatment: No: mild Bladder: None Gait: Yes slow, imbalance, decreased stamina and uses walking stick prn, Treatment: She purchased Voxx socks and shoe inserts that she says significantly improve her walking and balance and Response to treatment Good Spasticity: Yes, location: bilateral legs Treatment: baclofen Response to treatment Good Depression: Yes Treament: meds duloxetine (Cymbalta) Response to treatment Good RLS: Neupro patch and Voxx socks help significantly Fibromyalgia: Cymbalta helps History of Vitamin D deficiency: Will monitor level and adjust supplementation accordingly. Seizure history summary: She had been on Keppra 500mg BID until she called in August 2018 stating she and her thought she had a seizure while sleeping because she was making noises in her sleep for 10-15 seconds. Her Keppra was increased to 750mg BID but then a similar event may have happened (pt woke in the morning thinking she may have recalled making some noised the pervious night) again. To be safe, she was told to increase Keppra to 1000mg BID but she could not sleep on that dose. Her Keppra was decrease and is now controlled on Keppra 1000 QAM and 750mg QHS. She has also been taking clonazepam 1mg BID. Sz description speech arrest, recurrent visual episodes. She no longer has those but has generalized tonic clonic seizures only now. 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 3 in winter 2016 MR head 2014 ? DNET L temporal EEG 2000 normal electrical activity SUDEP disc/Sz safety yes, seizure/SUDEP education, written/verbal Safety issues doesn't drive Seizure med(s) Keppra 1000mg QAM and 750mg QHS Previous rx carbamazepine (Tegretol), valproic acid (Depakote) phenytoin (Dilantin) 200mg qhs Return in about 5 months (around 03/30/2019) for with Maria E Baca RN, SUPERINTENDENT PRESSURE for MS as originally planned. This note was partially created using voice recognition software and is inherently subject to errors including those of syntax and "sound-alike" substitutions which may escape proofreading. In such instances, original meaning may be extrapolated by contextual derivation. DISEASE SUMMARY Ethnicity Dominant Hand Right Primary Neurological Diagnosis Relapsing form of MS Date of Symptom Onset 05/11/87(dx 2000) Age of Symptom Onset (MSPATH) MS Attack History 1987 B ON, 1988 leg weakness, others 90's Relapses in past 12 months (MSPATH) Employment Status Current Living Situation Current Disease Modifying Therapy (nothing) Prior Disease Modifying Therapy Avonex, Copaxone QD, Aubagio(Avonex 2000-2, mood issues, Copaxone 2001, SOB, Aubagio 2013-nausea and wt loss) Self Walking Assessment Years using current walking aid How long ago did patient start needing a cane or crutch Dalfampradine (hx of seizures) Testing summary Most Recent MRI Brain 06/14/18(no change from at least 2013) Most Recent MRI Cervical Spine 05/14/18(no change from 2013 lesion C6) Most Recent MRI Thoracic Spine 05/14/18(Lesion at T2) Most Recent 09/02/17 NEREIDA virus Ab titre CSF +OCB's, inc IgG synth Other Testing No flowsheet data found. MS Path NeuroQOL 07/07/2018 UE 43.47 LE 32.52 Sleep 54.58 Fatigue 50.36 Anxiety 45.93 Depression 49.44 Stigma 64.21 Posititve Affect-Well Being 48.38 Cognitive Function 51.09 Ability Participate Social Roles 40.32 Satisfaction Social Roles 40.61 Emotional Behavioral Dyscontrol 45.21 Interval History CC: MS/other demyelinating f/u. Sotero Bethea is here for follow up for her MS. Life changes: no Medical history/non-MS medication changes: Using Voxx socks and insoles that she finds very helpfulin managing her imbalance Since last visit, she had no relapses or progression of symptoms. MS symptom inventory: Review of systems performed by the WRAPPER LAYER/medical oncology physician, personally reviewed and viewable in the current patient encounter. Pertinent positive and negative findings detailed in HPI. Current disease modifying therapy: (nothing). Pertinent data reviewed: I reviewed most recent MRI reports, labs and neurologist's previous note. Past Medical History: Diagnosis Date Arthritis Back pain Bladder problem Chronic pain disorder Depression Headache Hypothyroidism Lupus (HCC) Multiple sclerosis (HCC) PAD (peripheral artery disease) (HCC) RIGHT LEG Patient denies medical problems Seizures (HCC) LAST SEIZURE 06/2017 Past Surgical History: Procedure Laterality Date BLADDER SURGERY DILATION AND CURETTAGE OF UTERUS EYE SURGERY ELI CATARACTS HYSTERECTOMY total TONSILLECTOMY Social History Tobacco Use Smoking status: Former Smoker Packs/day: 1.00 Years: 20.00 Pack years: 20.00 Types: Cigarettes Smokeless tobacco: Never Used Tobacco comment: Quit 20 years Substance Use Topics Alcohol use: No Drug use: No No family history on file. Allergies Allergen Reactions Teriflunomide Shortness Of Breath Copaxone [Glatiramer (Copolymer 1)] Hives Macrodantin [Nitrofurantoin Macrocrystal] Nitrofurantoin Macrocrystalline Tetracycline Pt was on medicine jail "4 mos". Pt told not to take anymore took for 9 months for sore throat; told not to take it again Tetracyclines Adhesive Tape-Silicones Rash Current Outpatient Medications Medication Sig Dispense Refill acetaminophen (TYLENOL EXTRA STRENGTH) 500 MG tablet Take 500 mg by mouth every 6 (six) hours as needed for pain . baclofen (LIORESAL) 10 MG tablet Take 1 tab qam and 2 po qhs cholecalciferol, vitamin D3, (VITAMIN D3) 2,000 unit cap Take 2,000 Units by mouth 2 (two) times a day . clobetasol (TEMOVATE) 0.05 % cream Apply topically 2 (two) times a day . clonazePAM (KLONOPIN) 1 MG tablet Take 1 mg by mouth 2 (two) times a day Reasons: TAKE DOS for seizures. cranberry fruit extract (CRANBERRY ORAL) Take by mouth daily. DULoxetine (CYMBALTA) 60 MG capsule Take 60 mg by mouth nightly Reasons: Disorder characterized by Stiff, Tender & Painful Muscles, major depressive disorder, 2 TABS HS. HYDROmorphone (DILAUDID) 4 MG tablet Take 4 mg by mouth 3 (three) times a day (Days supply per fill: 7) . lactobacillus combo no.6 (PROBIOTIC COMPLEX ORAL) Take 80 Billion Units by mouth 2 (two) times a day . levothyroxine (SYNTHROID, LEVOTHROID) 125 MCG tablet Take 150 mcg by mouth every morning Reasons: TAKE DOS. xhymwyiw-cup-hakd-FA-lutein (CENTRUM SILVER WOMEN) 8 mg iron-400 mcg-300 mcg Tab Take 1 tablet by mouth daily. rotigotine (NEUPRO) 8 mg/[address] on the skin Reasons: Extreme Discomfort in Calves when Sitting or Lying Down. spironolactone (ALDACTONE) 50 MG tablet Take 50 mg by mouth daily . levETIRAcetam (KEPPRA) 500 MG tablet 2 PO QAM and 1.5 PO QHS . 105 tablet 11 No current facility-administered medications for this visit. EXAMINATION BP (!) 163/80 Pulse 79 Ht 5' 4" Wt 77.1 kg (170 lb) BMI 29.18 kg/m Heart: regular rate and rhythm, no murmurs. General NAD MULTIPLE SCLEROSIS PERFORMANCE TEST CLINICAL TESTING VALUE Binocular Visual acuity (Hi: range 13-60, median 59) (Lo: range 0-55, median 32) Low Contrast: 5 High Contrast: 52 Symbol Digit Modality Test (range 4-86, Median 46) Total Number Correct: 38 Nine Hole Peg Test (range 13.4-8.3; median 26.5) Right Hand Avg (seconds): 33.05 Left Hand Avg (seconds): 33.30 Dominant Hand: right Timed 25 Foot Walk (range 0.1-52.47; Median without aid 7.1) Average Trial Time (seconds): 7.34 AFO Choice: none Walking Aid Choice: cane MULTIPLE SCLEROSIS SPECIFIC MEASURES VALUE Visual acuity OD: 20/40 pinhole OS: 20/50 pinhole Timed 25 Foot Walk (historical data unless MS PATHS issues when it will be noted as manually entered) Trial 1: 11.71 rollator Trial 2: 10.21 rollator 9 Hole Peg test (historical data unless MS PATHS issues when it will be noted as manually entered) Right 1st: 28.59 Right 2nd: 25.56 Left 1st: 26.87 Left 2nd: 29.44 Ophthalmologic bilateral disks are flat with normal color and normal vasculature. Mental Status: orientation, attention span, concentration, memory (recent/remote), language(fluency, comprehension, etc.) and fund of knowledge (awareness of current events, past history, vocabulary)all intact. Cranial nerve examination: Pupils PERRL full to confrontation. Extra occular movements intact without nystagmus Sensation and strength are intact and symmetric Hearing grossly intact. Speech normal/no dysarthria Palate, tongue and shrug are normal and symmetric. Motor examination: Normal bulk and tone. Muscle strength: D B T FF IO HF KF KE DF PF Right 5 5 5 5 5 5 5 5 5 5 Left 5 5 5 5 5 5 5 5 5 5 DTR: B T BR Pat Ankle Ankle Clonus Plantar Resp Cross Adductor Right 3 3 3 3 3 Left 3 3 3 3 3 Sensory examination: light touch normal in all four extremities, vibration decreased to ankles bilat and temperature normal in all four extremities Coordination: Normal fine finger movements and iuszgm-[id number]-lbqsjb maneuvers bilaterally. Gait examination: normal with regards to heel strike, stride length, turn and arm swing., uses walking stick but can walk without it. She showed me her walking with and without her Voxx insoles. It was normal immediately after using the insoles and she was stooped at the waist and leaning on her walking stick without them. Romberg testing: patient is stable with eyes open and closed Cerebral FSS 0 - normal Visual FSS OD: 20/40 pinhole OS: 20/50 pinhole 2 - worse eye with scotoma with maximal visual acuity of 20/30 to 20/59; corrected Brainstem FSS 0 - Normal Pyramidal FSS 0 - normal Sensory FSS 2 - mild decrease in touch or pain or position sense and/or moderate decrease in vibration in 1 or 2 limbs; or vibratory decrease in 3 or 4 limbs Cerebellar FSS 0 - normal Ambulation FSS 4 - requires unilateral support (cane or single crutch) to walk; walks 25 feet in 20seconds or less Bowel/Bladder FSS 0 - Normal Estimated EDSS Step 6.0 - Intermittent or constant unilateral assistance (cane, crutch, or brace) required to walk about 100 meters (325 ft.) with or without resting. Warmest regards, Maria E Baca CNP * Bonnie Michael MA - 10/18/2018 12:12 PM EDT Symptom Present/treatment notes Depression ("Do you have or are you treated for depression?") No Anxiety ("Do you have or are you treated for anxiety?") No Fatigue Yes. Type: mixed (decreased energy and sleepiness) Cognition/Memory no Urinary None Bowel no Gait/balance Yes slow, imbalance, uses cane and decreased stamina Gait distance 100 feet Stiffness/spasms Yes, location: bilateral legs Numbness Yes, location: bilateral hands feet Pain Yes, location: bilateral legs low back Weakness Yes, location: bilateral arms Swallowing no Speech no Vision yes Sexual dysfunction no Seizures no Dizziness/vertigo yes Other no Worklife Retired documented in this encounter* Maria E Baca, SUPERINTENDENT PRESSURE - 03/30/2019 1:26 PM EST IMPRESSIONS Sotero Bethea is a 68 y.o. female with Relapsing form of MS DISEASE STATUS Clinical Relapse 1987 B ON, 1988 leg weakness, others 90's Subjective worsening no Exam worsening no MRI 06/14/18(no change from at least 2013) Overall stable Disease Management Roz Bethea remains clinically and radiographically stable. She had a few spells in October that may have been breakthrough seizure activity. Her Keppra was increased as a precaution. She has not had any spells since but she says today that she does not think they were seizures. Plan: Disease Modifying Treatment: None indicated Testing related to MS Lab: VitD Symptom management : Plan: Fatigue: Yes. Type: mixed (decreased energy and sleepiness) Treatment: Deep Blue ointment and rolls legs because it helps her sleep Response to treatment Good Bladder: None Gait: Yes slow, imbalance and decreased stamina and Treatment: does not want to treat as it is manageable Spasticity: Yes, location: bilateral legs Treatment: Deep Blue, rolling legs and Baclofen 5mg BID Response to treatment Good Depression: None History of Vitamin D deficiency: Will monitor level and adjust supplementation accordingly. RLS: Neupro patch works well Seizures: Sz description speech arrest, recurrent visual episodes. She no longer has those but has generalized tonic clonic seizures only now. 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 3 in winter 2016 MR head 2013 ? DNET L temporal EEG 2000 normal electrical activity SUDEP disc/Sz safety yes, seizure/SUDEP education, written/verbal Safety issues doesn't drive Seizure med(s) Keppra 1000mg QAM and 750mg QHS, clonazepam 1.0mg BID Previous rx carbamazepine (Tegretol), valproic acid (Depakote) phenytoin (Dilantin) 200mg qhs Return in about 9 months (around 12/29/2019) for with Bubba Sims MD for MS. This note was partially created using voice recognition software and is inherently subject to errors including those of syntax and "sound-alike" substitutions which may escape proofreading. In such instances, original meaning may be extrapolated by contextual derivation. DISEASE SUMMARY Ethnicity Dominant Hand Right Primary Neurological Diagnosis Relapsing form of MS Date of Symptom Onset 05/11/87(dx 2000) Age of Symptom Onset (MSPATH) MS Attack History 1987 B ON, 1988 leg weakness, others 90's Relapses in past 12 months (MSPATH) Employment Status Current Living Situation Current Disease Modifying Therapy (nothing) Prior Disease Modifying Therapy Avonex, Copaxone QD, Aubagio(Avonex 2000-2, mood issues, Copaxone 2001, SOB, Aubagio 2013-nausea and wt loss) Self Walking Assessment Years using current walking aid How long ago did patient start needing a cane or crutch Dalfampradine (hx of seizures) Testing summary Most Recent MRI Brain 06/14/18(no change from at least 2013) Most Recent MRI Cervical Spine 05/14/18(no change from 2013 lesion C6) Most Recent MRI Thoracic Spine 05/14/18(Lesion at T2) Most Recent 09/02/17 NEREIDA virus Ab titre CSF +OCB's, inc IgG synth Other Testing No flowsheet data found. MS Path NeuroQOL 07/07/2018 UE 43.47 LE 32.52 Sleep 54.58 Fatigue 50.36 Anxiety 45.93 Depression 49.44 Stigma 64.21 Posititve Affect-Well Being 48.38 Cognitive Function 51.09 Ability Participate Social Roles 40.32 Satisfaction Social Roles 40.61 Emotional Behavioral Dyscontrol 45.21 Interval History CC: MS/other demyelinating f/u. Sotero Bethea is here for follow up for her MS. Life changes: no Medical history/non-MS medication changes: no Since last visit, she had no relapses or progression of symptoms. MS symptom inventory: Review of systems performed by the WRAPPER LAYER/medical oncology physician, personally reviewed and viewable in the current patient encounter. Pertinent positive and negative findings detailed in HPI. Current disease modifying therapy: (nothing). Pertinent data reviewed: I reviewed most recent MRI reports, labs and neurologist's previous note. Past Medical History: Diagnosis Date Arthritis Back pain Bladder problem Chronic pain disorder Depression Headache Hypothyroidism Lupus (HCC) Multiple sclerosis (HCC) PAD (peripheral artery disease) (HCC) RIGHT LEG Patient denies medical problems Seizures (HCC) LAST SEIZURE 06/2017 Past Surgical History: Procedure Laterality Date BLADDER SURGERY DILATION AND CURETTAGE OF UTERUS EYE SURGERY ELI CATARACTS HYSTERECTOMY total TONSILLECTOMY Social History Tobacco Use Smoking status: Former Smoker Packs/day: 1.00 Years: 20.00 Pack years: 20.00 Types: Cigarettes Smokeless tobacco: Never Used Tobacco comment: Quit 20 years Substance Use Topics Alcohol use: No Drug use: No History reviewed. No pertinent family history. 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 Pt told not to take anymore took for 9 months for sore throat; told not to take it again Tetracyclines Adhesive Tape-Silicones Rash Current Outpatient Medications Medication Sig Dispense Refill acetaminophen (TYLENOL EXTRA STRENGTH) 500 MG tablet Take 500 mg by mouth every 6 (six) hours as needed for pain . cholecalciferol, vitamin D3, (VITAMIN D3) 2,000 unit cap Take 2,000 Units by mouth 2 (two) times a day . clobetasol (TEMOVATE) 0.05 % cream Apply topically 2 (two) times a day . clonazePAM (KLONOPIN) 1 MG tablet Take 1 mg by mouth 2 (two) times a day Reasons: TAKE DOS for seizures. cranberry fruit extract (CRANBERRY ORAL) Take by mouth daily. DULoxetine (CYMBALTA) 60 MG capsule Take 60 mg by mouth nightly Reasons: Disorder characterized by Stiff, Tender & Painful Muscles, major depressive disorder, 2 TABS HS. lactobacillus combo no.6 (PROBIOTIC COMPLEX ORAL) Take 80 Billion Units by mouth 2 (two) times a day . levETIRAcetam (KEPPRA) 500 MG tablet 2 PO QAM and 1.5 PO QHS . 105 tablet 11 levothyroxine (SYNTHROID, LEVOTHROID) 125 MCG tablet Take 750 mcg by mouth at bedtime Reasons: TAKEDOS. okuopkcd-csb-jkrn-FA-lutein (CENTRUM SILVER WOMEN) 8 mg iron-400 mcg-300 mcg Tab Take 1 tablet by mouth daily. oxyCODONE (Xtampza ER) 9 mg 12 hr capsule sprinkle Take 9 mg by mouth For low back pain . rotigotine (NEUPRO) 8 mg/[address] on the skin Reasons: Extreme Discomfort in Calves when Sitting or Lying Down. spironolactone (ALDACTONE) 50 MG tablet Take 50 mg by mouth daily . turmeric 400 mg cap Take by mouth . baclofen 5 mg Tab Take 1 (one) tablet (5 mg total) by mouth 2 (two) times a day . 180 tablet 3 No current facility-administered medications for this visit. EXAMINATION BP 144/66 Pulse 89 Ht 5' 3.75" Wt 81.6 kg (180 lb) BMI 31.14 kg/m Heart: regular rate and rhythm, no murmurs. General [facility] MULTIPLE SCLEROSIS PERFORMANCE TEST CLINICAL TESTING VALUE Binocular Visual acuity (Hi: range 13-60, median 59) (Lo: range 0-55, median 32) Low Contrast: High Contrast: Symbol Digit Modality Test (range 4-86, Median 46) Total Number Correct: 42 Nine Hole Peg Test (range 13.4-8.3; median 26.5) Right Hand Avg (seconds): 27.70 Left Hand Avg (seconds): 25.67 Dominant Hand: right Timed 25 Foot Walk (range 0.1-52.47; Median without aid 7.1) Average Trial Time (seconds): 7.68 AFO Choice: none Walking Aid Choice: walker_rollator MULTIPLE SCLEROSIS SPECIFIC MEASURES VALUE Visual acuity OD: 20/30 pinhole OS: 20/50 pinhole Timed 25 Foot Walk (historical data unless MS PATHS issues when it will be noted as manually entered) Trial 1: 11.71 rollator Trial 2: 10.21 rollator 9 Hole Peg test (historical data unless MS PATHS issues when it will be noted as manually entered) Right 1st: 28.59 Right 2nd: 25.56 Left 1st: 26.87 Left 2nd: 29.44 Ophthalmologic bilateral disks are flat with normal color and normal vasculature. Mental Status: orientation, attention span, concentration, memory (recent/remote), language(fluency, comprehension, etc.) and fund of knowledge (awareness of current events, past history, vocabulary)all intact. Cranial nerve examination: Pupils PERRL full to confrontation. Extra occular movements intact without nystagmus Sensation and strength are intact and symmetric Hearing grossly intact. Speech normal/no dysarthria Palate, tongue and shrug are normal and symmetric. Motor examination: Normal bulk and tone. Muscle strength: D B T FF IO HF KF KE DF PF Right 5 5 5 5 5 5 5 5 5 5 Left 5 5 5 5 5 5 5 5 5 5 DTR: B T BR Pat Ankle Ankle Clonus Plantar Resp Cross Adductor Right 3 3 3 3 3 Left 3 3 3 3 3 Sensory examination: light touch normal in all four extremities, vibration decreased to ankles bilat and temperature normal in all four extremities Coordination: Normal fine finger movements and jvlcua-xkfo-txglcp maneuvers bilaterally. Gait examination: with walker Romberg testing: patient is stable with eyes open and closed Cerebral FSS 0 - normal Visual FSS OD: 20/30 pinhole OS: 20/50 pinhole 2 - worse eye with scotoma with maximal visual acuity of 20/30 to 20/59; corrected Brainstem FSS 0 - Normal Pyramidal FSS 0 - normal Sensory FSS 2 - mild decrease in touch or pain or position sense and/or moderate decrease in vibration in 1 or 2 limbs; or vibratory decrease in 3 or 4 limbs Cerebellar FSS 0 - normal Ambulation FSS 5 - requires bilateral support (cane, crutches or walker) and walks 25 feet in 25 seconds or less Bowel/Bladder FSS 0 - Normal Estimated EDSS Step 6.5 - Constant bilateral assistance (canes, crutches, or braces) required to walk about 20 meters (65 ft.). Warmest regards, Maria E Baca CNP * Abby Rader MA - 03/30/2019 1:09 PM EST Symptom Present/treatment notes Depression ("Do you have or are you treated for depression?") No Anxiety ("Do you have or are you treated for anxiety?") No Fatigue Yes. Type: mixed (decreased energy and sleepiness) Cognition/Memory no Urinary None Bowel no Gait/balance Yes slow, imbalance and decreased stamina Gait distance 50 yards Stiffness/spasms Yes, location: bilateral legs low back Numbness Yes, location: bilateral hands feet Pain None Weakness None Swallowing no Speech no Vision no Sexual dysfunction no Seizures no Dizziness/vertigo no Other no Exercise No Worklife Retired documented in this encounter* Bubba Sims MD - 07/07/2018 1:41 PM EST [facility] Follow Up Note 07/07/2018 IMPRESSIONS Sotero Bethea is a 68 y.o. female with Relapsing form of MS DISEASE STATUS Clinical Relapse 1987 B ON, 1988 leg weakness, others 90's Subjective worsening no Exam worsening no MRI 06/14/18(no change from at least 2013) Overall stable Disease Management She has not had a relapse for over 20 years and her MRIs have been stable. She had a hard time tolerating disease modifying therapy wants to continue off therapy unless something changes. Plan: Disease Modifying Treatment: None indicated Testing none Symptom management : She was considering surgery but got a second opinion and now is convinced that she would like to hold off. Plan: Fatigue: Doesn't need/want treatment at this time Gait (7.76): Tried PT and aggravated her back. Spasticity: Continue baclofen Bladder: None Depression: Continue duloxetine (Cymbalta) Vitamin D deficiency: Continue supplementation, goal >49 No other issues seizure: She transition from Dilantin to Keppra 500 mg p.o. twice daily. She has been seizure-free and feels better off the Dilantin. Not smoking and Unable due to significant physical limitations Return in about 9 months (around 04/06/2019) for appt with Maria E Baca CNP. DISEASE SUMMARY Ethnicity Dominant Hand Right Primary Neurological Diagnosis Relapsing form of MS Date of Symptom Onset 05/11/87(dx 2000) Age of Symptom Onset (MSPATH) 40 Relapse History 1987 B ON, 1988 leg weakness, others 90's Relapses in past 12 months (MSPATH) 0 Employment Status retired Current Living Situation home_with_assistance Current Disease Modifying Therapy (nothing) Prior Disease Modifying Therapy Avonex, Copaxone QD, Aubagio(Avonex 2000-2, mood issues, Copaxone 2001, SOB, Aubagio 2013-nausea and wt loss) Self Walking Assessment early_cane Years using current walking aid less_than_one_year How long ago did patient start needing a cane or crutch Dalfampradine (hx of seizures) Testing summary Most Recent MRI Brain 06/14/18(no change from at least 2013) Most Recent MRI Cervical Spine 05/14/18(no change from 2013 lesion C6) Most Recent MRI Thoracic Spine 05/14/18(Lesion at T2) Most Recent 09/02/17 NEREIDA virus Ab titre CSF +OCB's, inc IgG synth Other Testing No flowsheet data found. MS Path NeuroQOL 07/07/2018 UE 43.47 LE 32.52 Sleep 54.58 Fatigue 50.36 Anxiety 45.93 Depression 49.44 Stigma 64.21 Posititve Affect-Well Being 48.38 Cognitive Function 51.09 Ability Participate Social Roles 40.32 Satisfaction Social Roles 40.61 Emotional Behavioral Dyscontrol 45.21 Interval History CC: MS/other inflammatory/demyelinating f/u. Sotero Bethea is here for follow up for Relapsing form of MS. Life changes: no Medical history/non-MS medication changes: She saw 2 different neurosurgeons, the first was considering surgery. The second stated that they would do surgery but would really advise against it. She feels most comfortable not doing surgery. Since last visit, she has: had no relapses or progression of symptoms. Symptom inventory: Review of systems performed by the WRAPPER LAYER/medical oncology physician, personally reviewed and viewable in the current patient encounter. Pertinent positive and negative findings detailed in HPI. Current disease modifying therapy: (nothing). Pertinent data reviewed: Imaging:MR head, MR Cspine and MR Tspine was personally reviewed by me. Comments: Agree with results. No new or active lesions. Lab: All available reviewed no significant abnormalities. Past Medical History: Diagnosis Date Arthritis Back pain Bladder problem Chronic pain disorder Depression Headache Hypothyroidism Lupus Multiple sclerosis (HCC) PAD (peripheral artery disease) (HCC) RIGHT LEG Patient denies medical problems Seizures (HCC) LAST SEIZURE 06/2017 Past Surgical History: Procedure Laterality Date BLADDER SURGERY DILATION AND CURETTAGE OF UTERUS EYE SURGERY ELI CATARACTS HYSTERECTOMY total TONSILLECTOMY Social History Tobacco Use Smoking status: Former Smoker Packs/day: 1.00 Years: 20.00 Pack years: 20.00 Types: Cigarettes Smokeless tobacco: Never Used Tobacco comment: Quit 20 years Substance Use Topics Alcohol use: No Drug use: No History reviewed. No pertinent family history. 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 Pt told not to take anymore took for 9 months for sore throat; told not to take it again Tetracyclines Adhesive Tape-Silicones Rash Current Outpatient Medications Medication Sig Dispense Refill baclofen (LIORESAL) 10 MG tablet Take 1/2 tab by mouth twice times daily. cholecalciferol, vitamin D3, (VITAMIN D3) 2,000 unit cap Take 2,000 Units by mouth daily. clonazePAM (KLONOPIN) 1 MG tablet Take 1 mg by mouth 2 (two) times a day . cranberry fruit extract (CRANBERRY ORAL) Take by mouth daily. DULoxetine (CYMBALTA) 60 MG capsule Take 60 mg by mouth nightly . furosemide (LASIX) 20 MG tablet Take 20 mg by mouth daily . lactobacillus combo no.6 (PROBIOTIC COMPLEX ORAL) Take 80 Billion Units by mouth 2 (two) times a day . levETIRAcetam (KEPPRA) 500 MG tablet Take 1 (one) tablet (500 mg total) by mouth 2 (two) times a day . 60 tablet 11 levothyroxine (SYNTHROID, LEVOTHROID) 150 MCG tablet Take 150 mcg by mouth every morning . hhjkmtmt-utj-wmrv-FA-lutein (CENTRUM SILVER WOMEN) 8 mg iron-400 mcg-300 mcg Tab Take 1 tablet by mouth daily. oxyCODONE (XTAMPZA ER) 9 mg 12 hr capsule sprinkle Take 9 mg by mouth 0 . potassium chloride (MICRO-K) 10 MEQ CR capsule Take 10 mEq by mouth 2 (two) times a day . oxyCODONE-acetaminophen (PERCOCET) 5-325 mg per tablet Take 1 tablet by mouth every 6 (six) hours as needed for pain 0 . No current facility-administered medications for this visit. EXAMINATION BP 105/68 Pulse 82 Ht 5' 4" Wt 77.1 kg (170 lb) BMI 29.18 kg/m GENERAL: General Appearance: In NAD Respiratory Effort: Normal Extremities: No edema Skin: No rashes visualized FOCUSED PERFORMANCE TESTING CLINICAL TESTING VALUE Binocular Visual acuity (Hi: range 13-60, median 59) (Lo: range 0-55, median 32) Low Contrast: 0 High Contrast: 45 Symbol Digit Modality Test (range 4-86, Median 46) Total Number Correct: 37 Nine Hole Peg Test (range 13.4-8.3; median 26.5) Right Hand Avg (seconds): 26.66 Left Hand Avg (seconds): 24.93 Dominant Hand: right Timed 25 Foot Walk (range 0.1-52.47; Median without aid 7.1) Average Trial Time (seconds): 7.76 AFO Choice: none Walking Aid Choice: walker_rollator Ophthalmologic bilateral disks are flat with normal color and normal vasculature. VALUE Visual acuity OD: 20/70 pinhole OS: 20/70 pinhole Timed 25 Foot Walk (Manual if MSPATHS issue) Trial 1: 11.71 rollator (historical) Trial 2: 9 Hole Peg test (Manual if MSPATHS issue) Right 1st: 28.59 (historical) Right 2nd: Left 1st: 26.87 (historical) Left 2nd: Mental Status: orientation, attention span, concentration, memory (recent/remote), language(fluency, comprehension, etc.) and fund of knowledge (awareness of current events, past history, vocabulary)all intact.. Cranial nerve examination: Pupils PERRL full to confrontation. Extra occular movements intact without nystagmus Sensation and strength are intact and symmetric Hearing grossly intact. Speech normal/no dysarthria Palate, tongue and shrug are normal and symmetric. Motor examination: Normal bulk and tone. Muscle strength: D B T FF IO HF KF KE DF PF Right 5 5 5 5 5 5 5 5 5 5 Left 5 5 5 5 5 5 5 5 5 5 DTR: B T BR Pat Ankle [place] Cross Adductor Ankle Clonus Plantar Resp Right 3 3 3 3 3 - none Left 3 3 3 3 3 - none Sensory examination: light touch normal in all four extremities, vibration decreased in feet and temperature normal in all four extremities Coordination: Normal fine finger movements and booocv-ohfn-iovsmd maneuvers bilaterally. Gait examination: Uses walker Romberg testing: patient is stable with eyes open and closed Cerebral FSS 0 - normal Visual FSS OD: 20/70 pinhole OS: 20/70 pinhole 3 (2) - worse eye with large scotoma, or moderate decrease in white, but with maximal visual acuity of 20/60 to 20/99; corrected Brainstem FSS 0 - Normal Pyramidal FSS 0 - normal Sensory FSS 1 - vibration or figure-writing decrease in one of two limbs Cerebellar FSS 0 - normal Ambulation FSS 5 - requires bilateral support (cane, crutches or walker) and walks 25 feet in 25 seconds or less Bowel/Bladder FSS 0 - Normal Estimated EDSS Step 6.5 - Constant bilateral assistance (canes, crutches, or braces) required to walk about 20 meters (65 ft.). Warmest regards, Bubba Sims MD Education given: none this visit * Palak Delgadillo LPN - 07/07/2018 12:45 PM EST Symptom Present/treatment notes Depression ("Do you have or are you treated for depression?") No Anxiety ("Do you have or are you treated for anxiety?") No Fatigue Yes. 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 XRAYS Chief Complaint Multiple sclerosis EPILEPSY INT LABS Reason for Visit Epilepsy Low back pain Multiple sclerosis Chief Complaint Admit Date PAIN- COPY PCP May 06, 2024 1:52pm 6 M FU May 30, 2024 1 1:01am PAIN- COPY PCP August 02, 2024 10: 49am 2 M FU August 02, 2024 11: 13am Reason for Visit Admit Date Carotid bruit May 30, 2024 1 1:01am Epilepsy May 30, 2024 1 1:01am Fatigue May 30, 2024 1 1:01am Multiple sclerosis May 30, 2024 1 1:01am Epilepsy August 02, 2024 11: 13am Fatigue August 02, 2024 11: 13am Multiple sclerosis August 02, 2024 11: 13am Chief Complaint Admit Date PAIN- COPY PCP August 02, 2024 10: 49am 2 M FU August 02, 2024 11: 13am B12 inject August 10, 2024 9:34 am 2 M FU September 12, 2024 11:02a m LEFT CAROTID BRUIT September 22, 2024 9:40a m FOLLOW UP / LYME DISEASE October 27, 2024 1:09pm Reason for Visit Admit Date Epilepsy August 02, 2024 11: 13am Fatigue August 02, 2024 11: 13am Multiple sclerosis August 02, 2024 11: 13am Fatigue August 10, 2024 9:34 am Epilepsy September 12, 2024 11:02a m Fatigue September 12, 2024 11:02a m Left carotid bruit September 12, 2024 11:02a m Low back pain September 12, 2024 11:02a m Multiple sclerosis September 12, 2024 11:02a m Reason for Visit Admit Date Epilepsy August 02, 2024 11: 13am Fatigue August 02, 2024 11: 13am Multiple sclerosis August 02, 2024 11: 13am Fatigue August 10, 2024 9:34 am Epilepsy September 12, 2024 11:02a m Fatigue September 12, 2024 11:02a m Left carotid bruit September 12, 2024 11:02a m Low back pain September 12, 2024 11:02a m Multiple sclerosis September 12, 2024 11:02a m Fatigue October 27, 2024 1:09 pm Chief Complaint Admit Date PAIN- COPY PCP August 02, 2024 10: 49am 2 M FU August 02, 2024 11: 13am B12 inject August 10, 2024 9:34 am 2 M FU September 12, 2024 11:02a m LEFT CAROTID BRUIT September 22, 2024 9:40a m FOLLOW UP / LYME DISEASE October 27, 2024 1:09pm 1 GRAM SOLU-MEDROL November 29, 2024 12:3 7pm Reason for Visit Admit Date Epilepsy August 02, 2024 11: 13am Fatigue August 02, 2024 11: 13am Multiple sclerosis August 02, 2024 11: 13am Fatigue August 10, 2024 9:34 am Epilepsy September 12, 2024 11:02a m Fatigue September 12, 2024 11:02a m Left carotid bruit September 12, 2024 11:02a m Low back pain September 12, 2024 11:02a m Multiple sclerosis September 12, 2024 11:02a m Epilepsy October 27, 2024 1:09 pm Fatigue October 27, 2024 1:09 pm Polyneuropathy October 27, 2024 1:09 pm Multiple sclerosis October 27, 2024 1:09 pm Chief Complaint Admit Date B12 inject August 10, 2024 9:34 am 2 M FU September 12, 2024 11:02a m LEFT CAROTID BRUIT September 22, 2024 9:40a m FOLLOW UP / LYME DISEASE October 27, 2024 1:09pm 1 GRAM SOLU-MEDROL November 29, 2024 12:3 7pm 1 GRAM SOLU-MEDROL November 30, 2024 12:5 1pm Reason for Visit Admit Date Fatigue August 10, 2024 9:34 am Epilepsy September 12, 2024 11:02a m Fatigue September 12, 2024 11:02a m Left carotid bruit September 12, 2024 11:02a m Low back pain September 12, 2024 11:02a m Multiple sclerosis September 12, 2024 11:02a m Epilepsy October 27, 2024 1:09 pm Fatigue October 27, 2024 1:09 pm Polyneuropathy October 27, 2024 1:09 pm Multiple sclerosis October 27, 2024 1:09 pm Chief Complaint Admit Date 1 GRAM SOLU-MEDROL November 29, 2024 12:3 7pm 1 GRAM SOLU-MEDROL November 30, 2024 12:5 1pm 4 MO FU February 27, 2025 1 1:00am Reason for Visit Admit Date Epilepsy February 27, 2025 1 1:00am Fatigue February 27, 2025 1 1:00am Low back pain February 27, 2025 1 1:00am Multiple sclerosis, relapsing-remitting February 27, 2025 11:00am Polyneuropathy February 27, 2025 1 1:00am Multiple sclerosis February 27, 2025 1 1:00am Additional Source Comments INFORMATION SOURCE (unrecogn ized section and content) DATE CREATED AUTHOR 11/28/2017 [facility] DATE CREATED AUTHOR AUTHOR'S ORGANIZ ATION 01/21/2020 [facility] DATE CREATED AUTHOR AUTHOR'S ORGANIZ ATION 12/10/2020 [facility] DATE CREATED AUTHOR AUTHOR'S ORGANIZ ATION 10/19/2022 [facility] DATE CREATED AUTHOR AUTHOR'S ORGANIZ ATION 10/30/2023 [facility] DATE CREATED AUTHOR AUTHOR'S ORGANIZ ATION 03/11/2025 [facility] DATE CREATED AUTHOR AUTHOR'S ORGANIZ ATION 03/20/[address] [facility] Reason for Visit (unrecogniz ed section and content) Reason Comments Neck Pain MRI downloaded Back Pain Leg Pain Arm Pain Numbness Status Reason Specialty Diagnoses / Procedures Referre d By Contact Referred To Contact Closed Radiology Diagnoses HNP (herniated nucleus pulposus), cervical Cervical radiculopathy Cervical spinal stenosis Multiple sclerosis (HCC) Procedures MR Cervical Spine Without Contrast Meet Gastelum MD [facility] [address] [place] [address] Status Reason Specialty Diagnoses / Procedures Referre d By Contact Referred To Contact Closed Radiology Diagnoses HNP (herniated nucleus pulposus), cervical Cervical radiculopathy Cervical spinal stenosis Multiple sclerosis (HCC) Procedures MR Thoracic Spine Without Contrast Meet Gastelum MD [facility] [address] [place] [address] Status Reason Specialty Diagnoses / Procedures Referre d By Contact Referred To Contact Closed Radiology Diagnoses Multiple sclerosis (HCC) Procedures MR Brain With And Without Contrast Maria E Baca, SUPERINTENDENT PR[employer] [address] [facility] [address] [place] [address] Reason Comments Multiple Sclerosis Reason Onset Date Comments Medication Refill 11/26/2020 Specialty Diagnoses / Procedures Referred By Maurice ramos Referred To Contact Diagnoses Noninfective gastroenteritis and colitis, unspecified Procedures COLONOSCOPY Anesthesia - MAC; [facility] Scott Pearson DO [address] [place] [address] [facility] [place] Referral ID Status Reason Start Date Expiration Date V isits Requested Visits Authorized [id number] Authorized 02/18/2022 08/17/2022 1 1 Reason Comments Appointment Care Teams (unrecognized sec tion and content) Registered Dental Hygienist Relationship Specialty Start Date End Date Jaquelin Faustin MD [address] [facility] [address] [address] [place] [address] PCP - General Internal Medicine 02/24/22 Team Status: Active Member Role Status Dates JAQUELIN FAUSTIN Primary Care Provider Active Team Status: Inactive Member Role Status Dates RAMIN HAMMER Primary Care Provider Active Dr. Tara Paul MD Attending Provider, Referring Provider Active Team Status: Inactive Member Role Status Dates Dr. Tara Paul MD Attending Provider, Referring Provider Active Team Status: Active Member Role Status Dates BREANNA MUNOZ Primary Care Provider Active Team Status: Inactive Member Role Status Dates Dr. Gordon Delgado MD Attending Provider Active Team Status: Inactive Member Role Status Dates Dr. Gordon Delgado MD Attending Provider, Referring Provider Active JACKLYN CARLOS Primary Care Provider Active Registered Dental Hygienist Relationship Specialty Start Date End Date Jaquelin Faustin MD PCP - General 07/30/13 Registered Dental Hygienist Relationship Specialty Start Date End Date Jaquelin Faustin MD PCP - General 08/21/06 Team Status: Active Member Role Status Dates Dr. Jaquelin Faustin MD Primary Care Provider Activ e Team Status: Inactive Member Role Status Dates Dr. Jaquelin Faustin MD Primary Care Provider Activ e Start: May 06, 2024 End: May 06, 2024 Dr. Tara Paul MD Attending Provider Active Start: May 06, 2024 End: May 06, 2024 Dr. Tara Paul MD Referring Provider Active Start: May 06, 2024 End: May 06, 2024 Team Status: Inactive Member Role Status Dates Dr. Jaquelin Faustin MD Primary Care Provider Activ e Start: May 30, 2024 End: May 30, 2024 Dr. Jaquelin Faustin MD Referring Provider Active Start: May 30, 2024 End: May 30, 2024 Dr. Gordon Delgado MD Attending Provider Active Start: May 30, 2024 End: May 30, 2024 Team Status: Inactive Member Role Status Dates Dr. Jaquelin Faustin MD Primary Care Provider Activ e Start: August 02, 2024 End: August 02, 2024 Dr. Tara Paul MD Attending Provider Active Start: August 02, 2024 End: August 02, 2024 Dr. Tara Paul MD Referring Provider Active Start: August 02, 2024 End: August 02, 2024 Team Status: Inactive Member Role Status Dates Dr. Jaquelin Faustin MD Primary Care Provider Activ e Start: August 02, 2024 End: August 02, 2024 Dr. Jaquelin Faustin MD Referring Provider Active Start: August 02, 2024 End: August 02, 2024 Dr. Gordon Delgado MD Attending Provider Active Start: August 02, 2024 End: August 02, 2024 Team Status: Active Member Role Status Dates No Primary Care Physician Primary Care Provider Active Team Status: Inactive Member Role Status Dates Dr. Jaquelin Faustin MD Primary Care Provider Activ e Start: August 10, 2024 End: August 10, 2024 Dr. Gordon Delgado MD Attending Provider Active Start: August 10, 2024 End: August 10, 2024 Dr. Gordon Delgado MD Referring Provider Active Start: August 10, 2024 End: August 10, 2024 Team Status: Inactive Member Role Status Dates Dr. Jaquelin Faustin MD Primary Care Provider Activ e Start: September 12, 2024 End: September 12, 2024 Dr. Gordon Delgado MD Attending Provider Active Start: September 12, 2024 End: September 12, 2024 Dr. Gordon Delgado MD Referring Provider Active Start: September 12, 2024 End: September 12, 2024 Team Status: Inactive Member Role Status Dates Dr. Gordno Delgado MD Attending Provider Active Start: September 22, 2024 End: September 22, 2024 Dr. Gordon Delgado MD Referring Provider Active Start: September 22, 2024 End: September 22, 2024 No Primary Care Physician Primary Care Provider Active Start: September 22, 2024 End: September 22, 2024 Team Status: Active Member Role Status Dates No Primary Care Physician Primary Care Provider Active Start: September 22, 2024 Dr. Jose Angel Sawyer MD Attending Provider Active S tart: September 22, 2024 Dr. Gordon Delgado MD Referring Provider Active Start: September 22, 2024 Team Status: Active Member Role Status Dates No Primary Care Physician Primary Care Provider Active Start: October 27, 2024 Dr. Tara Paul MD Attending Provider Active Start: October 27, 2024 Dr. Tara Paul MD Referring Provider Active Start: October 27, 2024 Team Status: Inactive Member Role Status Dates No Primary Care Physician Primary Care Provider Active Start: October 27, 2024 End: October 27, 2024 No Primary Care Physician Referring Provider Active Start: October 27, 2024 End: October 27, 2024 Dr. Gordon Delgado MD Attending Provider Active Start: October 27, 2024 End: October 27, 2024 Team Status: Inactive Member Role Status Dates No Primary Care Physician Primary Care Provider Active Start: October 27, 2024 End: October 27, 2024 Dr. Tara Paul MD Attending Provider Active Start: October 27, 2024 End: October 27, 2024 Dr. Tara Paul MD Referring Provider Active Start: October 27, 2024 End: October 27, 2024 Team Status: Active Member Role/Relationship Status Dates No Primary Care Physician Primary Care Provider Active Team Status: Inactive Member Role/Relationship Status Dates Dr. Jaquelin Faustin MD Primary Care Provider Activ e Start: August 02, 2024 End: August 02, 2024 Dr. Tara Paul MD Attending Provider Active Start: August 02, 2024 End: August 02, 2024 Dr. Tara Paul MD Referring Provider Active Start: August 02, 2024 End: August 02, 2024 Team Status: Inactive Member Role/Relationship Status Dates Dr. Jaquelin Faustin MD Primary Care Provider Activ e Start: August 02, 2024 End: August 02, 2024 Dr. Jaquelin Faustin MD Referring Provider Active Start: August 02, 2024 End: August 02, 2024 Dr. Gordon Delgado MD Attending Provider Active Start: August 02, 2024 End: August 02, 2024 Team Status: Inactive Member Role/Relationship Status Dates Dr. Jaquelin Faustin MD Primary Care Provider Activ e Start: August 10, 2024 End: August 10, 2024 Dr. Gordon Delgado MD Attending Provider Active Start: August 10, 2024 End: August 10, 2024 Dr. Gordon Delgado MD Referring Provider Active Start: August 10, 2024 End: August 10, 2024 Team Status: Inactive Member Role/Relationship Status Dates Dr. Jaquelin Faustin MD Primary Care Provider Activ e Start: September 12, 2024 End: September 12, 2024 Dr. Gordon Delgado MD Attending Provider Active Start: September 12, 2024 End: September 12, 2024 Dr. Gordon Delgado MD Referring Provider Active Start: September 12, 2024 End: September 12, 2024 Team Status: Inactive Member Role/Relationship Status Dates Dr. Gordon Delgado MD Attending Provider Active Start: September 22, 2024 End: September 22, 2024 Dr. Gordon Delgado MD Referring Provider Active Start: September 22, 2024 End: September 22, 2024 No Primary Care Physician Primary Care Provider Active Start: September 22, 2024 End: September 22, 2024 Team Status: Active Member Role/Relationship Status Dates No Primary Care Physician Primary Care Provider Active Start: September 22, 2024 Dr. Jose Angel Sawyer MD Attending Provider Active S tart: September 22, 2024 Dr. Gordon Delgado MD Referring Provider Active Start: September 22, 2024 Team Status: Inactive Member Role/Relationship Status Dates No Primary Care Physician Primary Care Provider Active Start: October 27, 2024 End: October 27, 2024 Dr. Tara Paul MD Attending Provider Active Start: October 27, 2024 End: October 27, 2024 Dr. Tara Paul MD Referring Provider Active Start: October 27, 2024 End: October 27, 2024 Team Status: Inactive Member Role/Relationship Status Dates No Primary Care Physician Primary Care Provider Active Start: October 27, 2024 End: October 27, 2024 No Primary Care Physician Referring Provider Active Start: October 27, 2024 End: October 27, 2024 Dr. Gordon Delgado MD Attending Provider Active Start: October 27, 2024 End: October 27, 2024 Team Status: Inactive Member Role/Relationship Status Dates No Primary Care Physician Primary Care Provider Active Start: November 29, 2024 End: November 29, 2024 Dr. Gordon Delgado MD Attending Provider Active Start: November 29, 2024 End: November 29, 2024 Dr. Gordon Delgado MD Referring Provider Active Start: November 29, 2024 End: November 29, 2024 Team Status: Inactive Member Role/Relationship Status Dates Dr. Jaquelin Faustin MD Primary Care Provider Activ e Start: August 10, 2024 End: August 10, 2024 Dr. Gordon Delgado MD Attending Provider Active Start: August 10, 2024 End: August 10, 2024 Dr. Gordon Delgado MD Referring Provider Active Start: August 10, 2024 End: August 10, 2024 Team Status: Inactive Member Role/Relationship Status Dates Dr. Jaquelin Faustin MD Primary Care Provider Activ e Start: September 12, 2024 End: September 12, 2024 Dr. Gordon Delgado MD Attending Provider Active Start: September 12, 2024 End: September 12, 2024 Dr. Gordon Delgado MD Referring Provider Active Start: September 12, 2024 End: September 12, 2024 Team Status: Inactive Member Role/Relationship Status Dates Dr. Gordon Delgado MD Attending Provider Active Start: September 22, 2024 End: September 22, 2024 Dr. Gordon Delgado MD Referring Provider Active Start: September 22, 2024 End: September 22, 2024 No Primary Care Physician Primary Care Provider Active Start: September 22, 2024 End: September 22, 2024 Team Status: Active Member Role/Relationship Status Dates No Primary Care Physician Primary Care Provider Active Start: September 22, 2024 Dr. Jose Angel Sawyer MD Attending Provider Active S tart: September 22, 2024 Dr. Gordon Delgado MD Referring Provider Active Start: September 22, 2024 Team Status: Inactive Member Role/Relationship Status Dates No Primary Care Physician Primary Care Provider Active Start: October 27, 2024 End: October 27, 2024 Dr. Tara Paul MD Attending Provider Active Start: October 27, 2024 End: October 27, 2024 Dr. Tara Paul MD Referring Provider Active Start: October 27, 2024 End: October 27, 2024 Team Status: Inactive Member Role/Relationship Status Dates No Primary Care Physician Primary Care Provider Active Start: October 27, 2024 End: October 27, 2024 Dr. Gordon Delgado MD Attending Provider Active Start: October 27, 2024 End: October 27, 2024 Dr. Gordon Delgado MD Referring Provider Active Start: October 27, 2024 End: October 27, 2024 Team Status: Inactive Member Role/Relationship Status Dates No Primary Care Physician Primary Care Provider Active Start: November 29, 2024 End: November 29, 2024 Dr. Gordon Delgado MD Attending Provider Active Start: November 29, 2024 End: November 29, 2024 Dr. Gordon Delgado MD Referring Provider Active Start: November 29, 2024 End: November 29, 2024 Team Status: Inactive Member Role/Relationship Status Dates No Primary Care Physician Primary Care Provider Active Start: November 30, 2024 End: November 30, 2024 Dr. Gordon Delgado MD Attending Provider Active Start: November 30, 2024 End: November 30, 2024 Dr. Gordon Delgado MD Referring Provider Active Start: November 30, 2024 End: November 30, 2024 Team Status: Active Member Role/Relationship Status Dates No Primary Care Physician Primary care physician Activ e Team Status: Inactive Member Role/Relationship Status Dates No Primary Care Physician Primary care physician Activ e Start: November 29, 2024 End: November 29, 2024 Dr. Gordon Delgado MD Attending physician Active Start: November 29, 2024 End: November 29, 2024 Dr. Gordon Delgado MD Referring Provider Active Start: November 29, 2024 End: November 29, 2024 Team Status: Inactive Member Role/Relationship Status Dates No Primary Care Physician Primary care physician Activ e Start: November 30, 2024 End: November 30, 2024 Dr. Gordon Delgado MD Attending physician Active Start: November 30, 2024 End: November 30, 2024 Dr. Gordon Delgado MD Referring Provider Active Start: November 30, 2024 End: November 30, 2024 Team Status: Inactive Member Role/Relationship Status Dates No Primary Care Physician Primary care physician Activ e Start: February 27, 2025 End: February 27, 2025 No Primary Care Physician Referring Provider Active Start: February 27, 2025 End: February 27, 2025 Dr. Gordon Delgado MD Attending physician Active Start: February 27, 2025 End: February 27, 2025 Goals (unrecognized section and content) Goals may be documented in a n alternate sectionGoals may be documented in an alternate sectionGoals may be documented in an alternate sectionGoals may be documented in an alternate sectionGoals may be documented in an alternate sectionGoals may be documented in an alternate sectionGoals may be documented in an alternate sectionGoals may be documented in an alternate sectionGoals may be documented in an alternate section Source Comments (unrecognize d section and content) In the event this informatio n is protected by the Federal Confidentiality of Alcohol and Drug Abuse Patient Records regulations: The Federal rules restrict any use of the information to criminally investigate or prosecute any alcohol or drug abuse patient.[facility] FOR RECORDS PERTAINING TO PATIENTS WHO ARE OR HAVE BEEN ENROLLED IN A CHEMICAL DEPENDENCY/SUBSTANCEABUSE PROGRAM, SOME INFORMATION MAY BE OMITTED. This clinical summary was aggregated from multiple sources. Caution should be exercised in using it in the provision of clinical care. This summary normalizes information from multiple sources, and as a consequence, information in this document may materially change the coding, format and clinical context of patient data. In addition, data may be omitted in some cases. CLINICAL DECISIONS SHOULD BE BASED ON THE PRIMARY CLINICAL RECORDS. [employer] provides no warranty or guarantee of the accuracy or completeness of information in this document.
--- NOTE | 2025-03-30 08:27 | MRI_ITS ---
PROCEDURE: BRAIN W/WO CONTRAST 03/30/2025 REASON FOR EXAM: MULTIPLE SCELORISIS TECHNIQUE: Procedure Code: [id number] Modality: MR Procedure: BRAIN W/WO CONTRAST Multiplanar and multisequence images were obtained. CONTRAST: VOLUME: mL COMPARISON: 04/13/2023. FINDINGS: Moderate generalized atrophy with commensurate ventriculomegaly, unchanged. Scattered confluence and focal FLAIR hyperintensities are noted within the bilateral cerebral white matter, unchanged from the previous study and consistent with the patient's known history of multiple sclerosis. No significant change in the size, extent, or number of these lesions. No corresponding enhancement to suggest active demyelination or inflammation. Stable T2/FLAIR hyperintensity in the left hippocampal gyrus, not significantly changed since the previous study and without corresponding enhancement. On the coronal T2 images, this lesion demonstrates a slightly "bubbly" appearance. A low-grade nonenhancing glioma such as a ganglioglioma is a consideration. Alternatively, this could potentially represent limbic encephalitis, including viral encephalitis (HSV) and autoimmune encephalitis. However, there is no corresponding restricted diffusion, and HSV encephalitis typically demonstrates restricted diffusion. A tumefactive demyelinating plaque can not be entirely excluded given the patient's history. In patients with a history of seizure, mesial temporal sclerosis is also a consideration. No midline shift. The midline structures are intact, specifically the corpus callosum, septum pellucidum, pituitary gland, and cerebellar vermis. The cervicomedullary junction appears unremarkable. The paranasal sinuses are clear. Mild bilateral mastoid effusions. Diffusion-weighted images demonstrate no restricted diffusion. No abnormal enhancement pattern. MRI/Brain W/WO Contrast IMPRESSION: No significant interval change. See above for details. Reading Location: [id number]
== END | disposition home or self-care (01) ==
PROVIDERS: PCP Radiologic Technologist Bone Densitometry; Referring Provider Psychiatry & Neurology Neurology; Visit Provider Psychiatry & Neurology Neurology
DX: G35.A Relapsing-remitting multiple sclerosis (principal); G40.909 Epilepsy, unspecified, not intractable, without status epilepticus; M54.2 Cervicalgia; M54.50 Low back pain, unspecified
CPT/HCPCS: 70553; 72156; 72157; 72158; A9575